=== PATIENT | female | born 1980 | race Caucasian/White ===

== ENCOUNTER → 2024-04-10 | Outpatient (CLI) | payer OTHER, SELFPAY ==
[2024-04-10 12:52] LABS: Anion Gap 7 (5-15); BUN 16 mg/dL (7-18); BUN/Creat Ratio 16.6 RATIO (10-20); Chloride 107 mmol/L (98-107); Cholesterol 169 mg/dL (200); Creatinine, Serum 0.96 mg/dL (0.55-1.02); EST Glomerular Filtration Rate 66 mL/min (>60); Est Glom Filt Rate - Afr Amer 80 mL/min (>60); Glucose 82 mg/dL (74-106); High Density Lipoprotein 73 mg/dL; Sodium Level 139 mmol/L (136-145); Triglycerides 65 mg/dL; Very Low Density Lipoprotein 13 mg/dL (5-40)
[2024-04-10 13:07] LABS: Hepatitis C Antibody Non-Reactive (Nonreactive)
== END | disposition home or self-care (01) ==
LOC: MTLAB 09:42
PROVIDERS: PCP Family Medicine; Referring Provider Nurse Practitioner Family; Visit Provider Nurse Practitioner Family
DX: Z13.220 Encounter for screening for lipoid disorders (principal); Z13.1 Encounter for screening for diabetes mellitus; Z11.59 Encounter for screening for other viral diseases
CPT/HCPCS: 36415; 80048; 80061; 86803

== ENCOUNTER 2025-09-24 21:04 | Emergency (ER) | payer OTHER, SELFPAY ==
[2025-09-24] VITALS (9 sets, daily range): BP systolic 130–164; BP diastolic 84–98; PULSE 67–91; RESP 11–16; TEMP 36.6; O2SAT 95–100; BMI 26.4
--- OUTSIDE RECORDS SUMMARY | 2025-09-24 22:07 | XMS RPT_ITS | CCD ---
Author Organization [facility] Care Team Providers Care Monotype Machinist Name Role Phone Bola Ng MD Primary Care Provider Daisy TRAINING SPECIALIST, Vy Referring Unavailable Daisy TRAINING SPECIALIST, Vy Attending Unavailable Bola Ng Primary Care Unavailable Bola Ng MD Primary Care Provider Trill TYING MACHINE OPERATOR.CLIVE Lina C Primary Care Provider OPAL SMITH Attending Unavailable TRILL, LINA C Primary Care Unavailable WALLACE NGIC A Primary Care Unavailable TRILL, LINA C Attending Unavailable TRILL, LINA C Attending Unavailable TRILL, LINA C Primary Care Unavailable TRILL, LINA C Referring Unavailable TRILL, LINA C Primary Care Unavailable TAI MOORE Referring Unavailable TRILL, LINA C Primary Care Unavailable TRILL, LINA C Referring Unavailable TRILL, LINA C Primary Care Unavailable HERNANDEZ BOLA A Primary Care Unavailable WALLACE NGIC A Primary Care Unavailable WALLACE NGIC A Primary Care Unavailable GIO PERALTA Attending Unavailable TRILL, LINA C Referring Unavailable TRILL, LINA C Primary Care Unavailable FABIANGIO Attending Unavailable TRILL, LINA C Referring Unavailable TRILL, LINA C Primary Care Unavailable FABIANGIO Attending Unavailable TRILL, LINA C Referring Unavailable TRILL, LINA C Primary Care Unavailable DAVIDA SÁNCHEZ Attending Unavailable TRILL, LINA C Referring Unavailable TRILL, LINA C Primary Care Unavailable FABIANEDITHY Attending Unavailable TRILL, LINA C Referring Unavailable TRILL, LINA C Primary Care Unavailable FABIANEDITHY Attending Unavailable TRILL, LINA C Referring Unavailable TRILL, LINA C Primary Care Unavailable TAI MOORE Attending Unavailable TRILL, LINA C Referring Unavailable TRILL, LINA C Primary Care Unavailable ALLYSON VALLE Attending Unavailable ALLYSON VALLE Referring Unavailable WALLACE NGIC A Primary Care Unavailable MARCH, MEGHAN G Attending Unavailable LINA RAINEY Referring Unavailable LINA RAINEY Primary Care Unavailable SISI BARRIOS Referring Unavailable WALLACE NGIC A Primary Care Unavailable LINA RAINEY Referring Unavailable LINA RAINEY Primary Care Unavailable Medications Current Medications Medication Drug Class(es) Dates Sig (Normalized) Sig (Original) ascorbic acid 125 mg chewable tablet (20 sources) Vitamin C ascorbic acid, vitamin C, (VITAMIN C) 125 mg chew Active doxycycline hyclate 100 mg oral tablet (1 source) Tetracycline-cla ss Drug Start: 09-08-2024 End: 09-15-2024 take 1 tablet by mouth twice daily doxycycline (VIBRA-TABS) 100 mg tablet Indications: Rhinosinusitis Take 1 tablet by mouth two times a day for 7 days. 14 tablet 09/08/2024 09/15/2024 Active ferrous sulfate (20 sources) FERROUS SULFATE (IRON ORAL) Take by mouth. Active FERROUS SULFATE (IRON ORAL) Take by mouth. 0 Active Comment on above: Take by mouth. iv contrast (will be provided with radiology test) (12 sources) Start: 11-03-2024 iv contrast (will be provide d with radiology test) MRI PANC/BLAYNE Inject, intravenously, once for 1 dose. No IV access, insert saline lock prior to the beginning of sedation, infusion, injection of imaging exam. Discontinue saline lock post exam. If Pt. has a central line or IVAD, may access for administration according to line specific nursing protocol. Once exam is complete flush line and de-access according to line specific nursing protocol in the MR contrast administration guidelines link. 1 Each 11/03/2024 Active Start: 09-22-2024 End: 09-23-2024 iv contrast (will be provide d with radiology test) MRI PANC/BLAYNE Inject, intravenously, once for 1 dose. No IV access, insert saline lock prior to the beginning of sedation, infusion, injection of imaging exam. Discontinue saline lock post exam. If Pt. has a central line or IVAD, may access for administration according to line specific nursing protocol. Once exam is complete flush line and de-access according to line specific nursing protocol in the MR contrast administration guidelines link. 1 Each 09/22/2024 09/23/2024 Active Start: 01-16-2022 End: 01-17-2022 iv contrast (will be provide d with radiology test) Indications: Pancreatic cyst MRI PANC/BLAYNE Inject, intravenously, once for 1 dose. No IV access, insert saline lock prior to the beginning of sedation, infusion, injection of imaging exam. Discontinue saline lock post exam. If Pt. has a central line or IVAD, may access for administration according to line specific nursing protocol. Once exam is complete flush line and de-access according to line specific nursing protocol in the MR contrast administration guidelines link. 1 Each 0 01/16/2022 01/17/2022 Active Comment on above: MRI PANC/BLAYNE Inject, intravenously, once for 1 dose. No IV access, insert saline lock prior to the beginning of sedation, infusion, injection of imaging exam. Discontinue saline lock post exam. If Pt. has a central line or IVAD, may access for administration according to line specific nursing protocol. Once exam is complete flush line and de-access according to line specific nursing protocol in the MR contrast administration guidelines link. Lactobacillus acidophilus (20 sources) Lactobacillus ac idophilus (PROBIOTIC ACIDOPHILUS ORAL) Take by mouth. Active Lactobacillus ac idophilus (PROBIOTIC ACIDOPHILUS ORAL) Take by mouth. 0 Active Comment on above: Take by mouth. Magnesium (20 sources) Magnesium 200 mg tab Active Magnesium 200 mg tab Multivitamin capsule (20 sources) take 1 capsule by mo uth once daily Multivitamin capsule Take 1 capsule by mouth once daily. Active take 1 capsule by mouth once rolly ly Multivitamin capsule Take 1 capsule by mouth once daily. 0 Active Comment on above: Take 1 capsule by mo uth once daily. naproxen 500 mg oral tablet (2 sources) Nonsteroidal Anti-inflammatory Drug Start: 5 End: 5 take 1 tablet by mouth twice daily as needed for pain naproxen (NAPROSYN) 500 mg tablet Indications: Right elbow pain Take 1 tablet by mouth two times a day as needed (FOR PAIN - TAKE WITH FOOD.) for up to 14 days. 28 tablet 12/07/2024 12/21/2024 Active psyllium seed, with dextrose, (FIBER SUPPLEMENT ORAL) (20 sources) psyllium seed, w ith dextrose, (FIBER SUPPLEMENT ORAL) Take by mouth. Active psyllium seed, w ith dextrose, (FIBER SUPPLEMENT ORAL) Take by mouth. 0 Active Comment on above: Take by mouth. Completed/Discontinued Medications Medication Drug Class(es) Dates Sig (Normalized) Sig (Original) dicyclomine hydrochloride 10 mg oral capsule (4 sources) Anticholinergic Start: 12-06-2021 End: 06-15-2022 take 1 capsule by mouth three times daily as needed for pain dicyclomine (BENTYL) 10 mg capsule Indications: Periumbilical abdominal pain Take 1 capsule by mouth three times daily as needed (for abdominal pain). 30 capsule 2 12/06/2021 06/15/2022 Discontinued Comment on above: Take 1 capsule by mo [facility] three times daily as needed (for abdominal pain). ELDERBERRY FRUIT (9 sources) End: 06-14-2023 ELDERBERRY FRUIT ORAL ELDERBERRY FRUIT ORAL Lactobac no.41/Bifidobact no .7 (PROBIOTIC-10 ORAL) (4 sources) End: 06-15-2022 Lactobac no.41/Bifidobact no .7 (PROBIOTIC-10 ORAL) Lactobac no.41/B ifidobact no.7 (PROBIOTIC-10 ORAL) Problems Active Problems Problem Classification Problem Date Documented Da te Episodic/Chronic Deficiency and other anemia (1 source) Anemia; Translations: [Anemia, unspecified] 10-13-2024 Episodic Neoplasms of unspecified nature or uncertain behavior (1 source) Benign neoplasm of pancreas; Translations: [Neoplasm of unspecified behavior of digestive system] 10-13-2024 Episodic Other and unspecified benign neoplasm (2 sources) Neuroma of foot; Translations: [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, including hip] 09-22-2024 Episodic Other and unspecified benign neoplasm (1 source) Skin lesion; Translations: [Hemangioma of skin and subcutaneous tissue] 03-15-2025 Episodic Other and unspecified benign neoplasm (1 source) Multiple benign melanocytic nevi ; Translations: [Melanocytic nevi, unspecified] 03-15-2025 Episodic Other and unspecified benign neoplasm (1 source) Hemangioma of skin and subcutaneous tissue; Translations: [Angioma of skin] Onset: 03-15-2025 Episodic Other and unspecified benign neoplasm (1 source) Melanocytic nevi, unspecified; Translations: [Multiple benign nevi] Onset: 03-15-2025 Episodic Other connective tissue disease (1 source) Pain in right foot; Translations: [Pain in right foot] 09-22-2024 Episodic Other connective tissue disease (1 source) Pain in right foot; Translations: [Foot pain, right] Onset: 09-22-2024 Episodic Other liver diseases (2 sources) Lesion of liver; Translations: [Liver disease, unspecified] Chronic Other lower respiratory disease (1 source) Cough; Translations: [Acute cough] Episodic Other lower respiratory disease (3 sources) Cough; Translations: [Acute cough] 08-16-2022 Episodic Other non-traumatic joint disorders (15 sources) Pain in elbow; Translations: [Pain in right elbow] Onset: 12-18-2024 12-07-2024 Episodic Other non-traumatic joint disorders (2 sources) Pain in right elbow; Translations: [Right elbow pain] Onset: 12-07-2024 Episodic Other skin disorders (1 source) Lentiginosis; Translations: [Other melanin hyperpigmentation] 03-15-2025 Episodic Other skin disorders (1 source) Seborrheic keratosis; Translations: [Other seborrheic keratosis] 03-15-2025 Episodic Other skin disorders (1 source) Other melanin hyperpigmentation; Translations: [Lentigines] Onset: 03-15-2025 Episodic Other skin disorders (1 source) Other seborrheic keratosis; Translations: [Seborrheic keratoses] Onset: 03-15-2025 Episodic Other upper respiratory infections (1 source) Chronic sinusitis, unspecified; Translations: [Unspecified sinusitis (chronic)] 09-08-2024 Chronic Other upper respiratory infections (2 sources) Acute upper respiratory infection; Translations: [Acute upper respiratory infection, unspecified] Episodic Residual codes; unclassified (1 source) Family history of malignant neoplasm of skin; Translations: [Family history of malignant neoplasm of other organs or systems] 09-22-2024 Episodic Residual codes; unclassified (1 source) Pain; Translations: [Pain, unspecified] 11-02-2024 Episodic Residual codes; unclassified (1 source) Family history of malignant neoplasm of other organs or systems; Translations: [Family history of skin cancer] Onset: 09-22-2024 Episodic Unclassified (1 source) Acute cough; Translations: [Acute cough] Onset: 09-08-2024 Past or Other Problems Problem Classification Problem Date Documented Date Episodic/Chronic Deficiency and other anemia (1 source) Anemia, unspecified; Translations: [Anemia, unspecified type] Onset: 10-20-2024 Episodic Female infertility (20 sources) Female infertility; Translations: [Female infertility, unspecified] Resolved: 05-06-2020 2021 Chronic Hypertension complicating ; childbirth and the puerperium (20 sources) Transient hypertension of ; Translations: [Gestational [-induced] hypertension without significant proteinuria, unspecified trimester] Onset: 01-31-2009 Resolved: 08-14-2010 08-14-2010 Episodic Immunizations and screening for infectious disease (20 sources) Immunization due; Translations: [Encounter for immunization] Onset: 07-29-2012 Resolved: 02-17-2013 2021 Episodic Other and unspecified benign neoplasm (18 sources) History of polyp of colon; Translations: [History of colonic polyps] Onset: 09-23-2024 09-23-2024 Episodic Other and unspecified benign neoplasm (2 sources) 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, including hip; Translations: [Neuroma of foot] Onset: 09-22-2024 Episodic Other complications of (20 sources) ; Translations: [Supervision of with history of infertility, unspecified trimester] Onset: 07-29-2012 Resolved: 08-29-2015 2021 Episodic Other complications of (20 sources) History of gestational hypertension; Translations: [Supervision of other high risk pregnancies, unspecified trimester] Onset: 07-29-2012 Resolved: 05-06-2020 2021 Episodic Other liver diseases (20 sources) Liver mass; Translations: [Hepatomegaly, not elsewhere classified] Onset: 01-18-2022 01-18-2022 Episodic Other liver diseases (2 sources) Hepatomegaly, not elsewhere classified; Translations: [Liver mass, right lobe] Onset: 01-18-2022 Episodic Other and delivery including normal (20 sources) Normal in primigravida; Translations: [Encounter for supervision of normal first , unspecified trimester] Onset: 06-30-2008 Resolved: 08-29-2015 08-14-2010 Episodic Other screening for suspected conditions (not mental disorders or infectious disease) (15 sources) Patient encounter status; Translations: [Encounter for screening mammogram for malignant neoplasm of breast] Onset: 04-21-2024 Episodic Pancreatic disorders (not diabetes) (20 sources) Cyst of pancreas; Translations: [Cyst of pancreas] Onset: 09-22-2024 Episodic Residual codes; unclassified (20 sources) History of antepartum hemorrhage; Translations: [Personal history of other complications of , childbirth and the puerperium] Onset: 07-29-2012 Resolved: 05-06-2020 2021 Episodic Residual codes; unclassified (20 sources) FH: Congenital anomaly; Translations: [Family history of other congenital malformations, deformations and chromosomal abnormalities] Onset: 07-29-2012 Resolved: 05-06-2020 2021 Episodic Residual codes; unclassified (1 source) Pain, unspecified; Translations: [Pain] Onset: 11-02-2024 Episodic Results Test Name Value Interpretation Reference Range Facil ity OPALOVon 03-15-2025 CNOV Office Visit (DERMIN ) ESTEFANI MISHRA ([id number]) 1980 F Date Time Provider Department 03/15/25 2:45 PM MEGHAN PEDROZA During your visit today, we recorded the following information about you: Meghan Pedroza APRN.CNP 03/15/2025 2:59 PM Signed NEW PATIENT Last visit: New Chief Complaint: Full body skin exam History of Present Ilness: Estefani Mishra is a 44 year old female presents today for a FBSE No other concerns today /planning or : no Pertinent Past Medical History: -Personal history of skin cancer: No -Personal history of skin disease: No -History of organ transplant/immunosuppr essed: No -History of atypical moles: No -Pacemaker or defibrillator: No Specialty Problems None Pertinent Family medical history: History of melanoma: No, but father hx of BCC Review of Systems: Constitutional: Denies fever, chills, night sweats, unintentional weight loss. Skin per HPI. No other new/concerning skin growth. Physical Exam: General: well appearing, of stated age, in no acute distress Neurology: alert and oriented times three Psychiatry: normal affect and speech Varghese skin type: II A skin exam was done of the scalp, face including eyelids and lips, ears, neck, chest, back, abdomen, bilateral upper extremities including digits, bilateral lower extremities and digits, buttocks, nails, except genitals Skin exam normal with the exception of: Few scattered brown stuck on papules and plaques on the head, trunk and extremities Regular and symmetric brown macules and papules on the head, trunk and extremities Scattered reticulated light sotomayor macules in sun distribution Scattered small meraz red papules throughout Assessment and Plan: 1. Meraz angiomas Reassurance on benign nature of lesions and recommend routine self-examinations. Recommend observation and encouraged to notify office of changes. 2. Solar lentigines, Multiple benign nevi, Seborrheic Keratoses, Reassurance on benign nature of lesions and recommend routine self-examinations. Recommend observation and encouraged to notify office of changes. Sunscreen (SPF 30 or higher). Sun protective clothing can be used in lieu of sunscreen but must be worn the entire time you are exposed to the sun's rays The ABCDEs of melanoma were reviewed with the patient and the importance of routine self-examination of moles was emphasized. Should any areas change in size, shape or color, bleed or become tender, the patient will contact the office for evaluation sooner than their interval appointment. Patient verbalizes understanding and agrees with treatment plan. Follow up: 1-2 years or sooner if something concerning arises. The documentation for this note was completed by Cielo Urena MA acting as scribe for Meghan Pedroza APRN.CNP. March 15, 2025 7:18 AM. Cielo Urena MA I agree with the Chief Complaint, ROS, and Past Histories independently gathered by the clinical bioinformatics support specialist and the remaining scribed note accurately describes my personal service to the patient. NOBLE Mccabe Alaina, MA 03/15/2025 2:52 PM Signed GENERAL SUN SAFETY Thank you for allowing me to examine you for signs of skin cancer today. We had an opportunity to discuss my findings and any treatments I recommended. I believe that there are several steps that a person can take to help prevent skin cancers and to detect them at an early, treatable stage: I highly recommend that you perform your own complete skin check once a month looking for changing or unusual spots Use a wall-mounted mirror and a hand mirror to assist in seeing body areas that are difficult to see otherwise If you have a family member that can assist, this is often helpful Please pay attention to the ABCDs of melanoma. Concerning features include moles that are Asymmetric, Borders that are irregular, more than one Color, Diameter greater than a pencil eraser and Evolution or change in your moles Please show any changing moles to your provider Additional information can be obtained at: [email or web address] [email or web address] [email or web address]-detection In many cases, skin cancer can be prevented. The best way to protect yourself is to avoid too much sun and sunburns. Health care providers believe that ultraviolet rays (UV rays) from the sun damage the skin and over time lead to skin cancer. Here are ways to protect yourself: Don't spend long periods of time in direct sunlight Wear hats with brims to protect your face and ears Wear long-sleeved shirts and pants to protect your arms and legs Use broad spectrum sunscreens with a SPF (skin protection factor) of 30 or higher that protect against burning and tanning rays. Apply the lotion 30 minutes before you go outside. Broad-spectrum sunscreens protect against UV-B and UV-A (more content not included)... Normal [facility] CNTHERAPYon 02-04-2025 CNTHERAPY OT/PT/Speech Visit (PTWS) ESTEFANI MISHRA ([id number]) 1980 F Date Time Provider Department 02/04/25 10:45 AM GIO PERALTA Date Time Provider Department Center 02/04/2025 10:45 AM [id number] PRIDE Reason for Visit: PT Discharge [752] Primary Visit Diagnosis:Right elbow pain [M25.521] Allergies As of Date: 02/04/2025 (No Known Allergies) Date Reviewed: 12/07/2024 Reviewed by: Lina Rainey APRN.RESIDENTIAL APPRAISER - Fully Assessed Prescriptions as of 02/04/2025 - iv contrast (will be provided with radiology test) MRI PANC/BLAYNE Inject, intravenously, once for 1 dose. No IV access, insert saline lock prior to the beginning of sedation, infusion, injection of imaging exam. Discontinue saline lock post exam. If Pt. has a central line or IVAD, may access for administration according to line specific nursing protocol. Once exam is complete flush line and de-access according to line specific nursing protocol in the MR contrast administration guidelines link. - Magnesium 200 mg tab - Lactobacillus acidophilus (PROBIOTIC ACIDOPHILUS ORAL) Take by mouth. - ascorbic acid, vitamin C, (VITAMIN C) 125 mg chew - psyllium seed, with dextrose, (FIBER SUPPLEMENT ORAL) Take by mouth. - Multivitamin capsule Take 1 capsule by mouth once daily. - FERROUS SULFATE (IRON ORAL) Take by mouth. Normal [facility] CNTHERAPYon 01-18-2025 CNTHERAPY OT/PT/Speech Visit (PTWS) ESTEFANI MISHRA ([id number]) 1980 F Date Time Provider Department 01/18/25 7:45 AM GIO PERALTA Date Time Provider Department Center 01/18/2025 7:45 AM [id number] PRIDE Reason for Visit: Physical Therapy [503] Primary Visit Diagnosis:Right elbow pain [M25.521] Allergies As of Date: 01/18/2025 (No Known Allergies) Date Reviewed: 12/07/2024 Reviewed by: Lina Rainey APRN.RESIDENTIAL APPRAISER - Fully Assessed Prescriptions as of 01/18/2025 - iv contrast (will be provided with radiology test) MRI PANC/BLAYNE Inject, intravenously, once for 1 dose. No IV access, insert saline lock prior to the beginning of sedation, infusion, injection of imaging exam. Discontinue saline lock post exam. If Pt. has a central line or IVAD, may access for administration according to line specific nursing protocol. Once exam is complete flush line and de-access according to line specific nursing protocol in the MR contrast administration guidelines link. - Magnesium 200 mg tab - Lactobacillus acidophilus (PROBIOTIC ACIDOPHILUS ORAL) Take by mouth. - ascorbic acid, vitamin C, (VITAMIN C) 125 mg chew - psyllium seed, with dextrose, (FIBER SUPPLEMENT ORAL) Take by mouth. - Multivitamin capsule Take 1 capsule by mouth once daily. - FERROUS SULFATE (IRON ORAL) Take by mouth. Normal [facility] CNTHERAPYon 01-11-2025 CNTHERAPY OT/PT/Speech Visit (PTWS) ESTEFANI MISHRA ([id number]) 1980 F Date Time Provider Department 01/11/25 1:15 PM DAVIDA SÁNCHEZ PTSHWETHA Date Time Provider Department Center 01/11/2025 1:15 PM [id number] SÁNCHEZ PTWS Seth Browning Reason for Visit: Physical Therapy [503] Primary Visit Diagnosis:Right elbow pain [M25.521] Allergies As of Date: 01/11/2025 (No Known Allergies) Date Reviewed: 12/07/2024 Reviewed by: Lina Rainey APRN.RESIDENTIAL APPRAISER - Fully Assessed Prescriptions as of 01/11/2025 - iv contrast (will be provided with radiology test) MRI PANC/BLAYNE Inject, intravenously, once for 1 dose. No IV access, insert saline lock prior to the beginning of sedation, infusion, injection of imaging exam. Discontinue saline lock post exam. If Pt. has a central line or IVAD, may access for administration according to line specific nursing protocol. Once exam is complete flush line and de-access according to line specific nursing protocol in the MR contrast administration guidelines link. - Magnesium 200 mg tab - Lactobacillus acidophilus (PROBIOTIC ACIDOPHILUS ORAL) Take by mouth. - ascorbic acid, vitamin C, (VITAMIN C) 125 mg chew - psyllium seed, with dextrose, (FIBER SUPPLEMENT ORAL) Take by mouth. - Multivitamin capsule Take 1 capsule by mouth once daily. - FERROUS SULFATE (IRON ORAL) Take by mouth. Normal [facility] CNTHERAPYon 01-04-2025 CNTHERAPY OT/PT/Speech Visit (PTWS) ESTEFANI MISHRA ([id number]) 1980 F Date Time Provider Department 01/04/25 7:45 AM GIO PERALTA PTWS Date Time Provider Department Center 01/04/2025 7:45 AM [id number], COREY PTWS Seth Browning Reason for Visit: Physical Therapy [503] Primary Visit Diagnosis:Right elbow pain [M25.521] Allergies As of Date: 01/04/2025 (No Known Allergies) Date Reviewed: 12/07/2024 Reviewed by: Lina Rainey APRN.RESIDENTIAL APPRAISER - Fully Assessed Prescriptions as of 01/04/2025 - iv contrast (will be provided with radiology test) MRI PANC/BLAYNE Inject, intravenously, once for 1 dose. No IV access, insert saline lock prior to the beginning of sedation, infusion, injection of imaging exam. Discontinue saline lock post exam. If Pt. has a central line or IVAD, may access for administration according to line specific nursing protocol. Once exam is complete flush line and de-access according to line specific nursing protocol in the MR contrast administration guidelines link. - Magnesium 200 mg tab - Lactobacillus acidophilus (PROBIOTIC ACIDOPHILUS ORAL) Take by mouth. - ascorbic acid, vitamin C, (VITAMIN C) 125 mg chew - psyllium seed, with dextrose, (FIBER SUPPLEMENT ORAL) Take by mouth. - Multivitamin capsule Take 1 capsule by mouth once daily. - FERROUS SULFATE (IRON ORAL) Take by mouth. Normal [facility] CNTHERAPYon 12-29-2024 CNTHERAPY OT/PT/Speech Visit (PTWS) ESTEFANI MISHRA ([id number]) 1980 F Date Time Provider Department 12/29/24 8:30 AM GIO PERALTA PTWS Date Time Provider Department [place] 12/29/2024 8:30 AM [id number], COREY PTWS Seth Browning Reason for Visit: Physical Therapy [503] Primary Visit Diagnosis:Right elbow pain [M25.521] Allergies As of Date: 12/29/2024 (No Known Allergies) Date Reviewed: 12/07/2024 Reviewed by: Lina Rainey APRN.RESIDENTIAL APPRAISER - Fully Assessed Prescriptions as of 12/29/2024 - iv contrast (will be provided with radiology test) MRI PANC/BLAYNE Inject, intravenously, once for 1 dose. No IV access, insert saline lock prior to the beginning of sedation, infusion, injection of imaging exam. Discontinue saline lock post exam. If Pt. has a central line or IVAD, may access for administration according to line specific nursing protocol. Once exam is complete flush line and de-access according to line specific nursing protocol in the MR contrast administration guidelines link. - Magnesium 200 mg tab - Lactobacillus acidophilus (PROBIOTIC ACIDOPHILUS ORAL) Take by mouth. - ascorbic acid, vitamin C, (VITAMIN C) 125 mg chew - psyllium seed, with dextrose, (FIBER SUPPLEMENT ORAL) Take by mouth. - Multivitamin capsule Take 1 capsule by mouth once daily. - FERROUS SULFATE (IRON ORAL) Take by mouth. Normal [facility] CNTHERAPYon 12-18-2024 CNTHERAPY OT/PT/Speech Visit (PTWS) ESTEFANI MISHRA ([id number]) 1980 F Date Time Provider Department 12/18/24 8:00 AM GIO PERALTA PTWS Date Time Provider Department Center 12/18/2024 8:00 AM [id number], [facility] PTWS Seth Browning Reason for Visit: PT Eval [747] Visit Diagnosis:Right elbow pain [M25.521] Allergies As of Date: 12/18/2024 (No Known Allergies) Date Reviewed: 12/07/2024 Reviewed by: Lina Rainey APRN.RESIDENTIAL APPRAISER - Fully Assessed Prescriptions as of 12/18/2024 - naproxen (NAPROSYN) 500 mg tablet Take 1 tablet by mouth two times a day as needed (FOR PAIN - TAKE WITH FOOD.) for up to 14 days. - iv contrast (will be provided with radiology test) MRI PANC/BLAYNE Inject, intravenously, once for 1 dose. No IV access, insert saline lock prior to the beginning of sedation, infusion, injection of imaging exam. Discontinue saline lock post exam. If Pt. has a central line or IVAD, may access for administration according to line specific nursing protocol. Once exam is complete flush line and de-access according to line specific nursing protocol in the MR contrast administration guidelines link. - Magnesium 200 mg tab - Lactobacillus acidophilus (PROBIOTIC ACIDOPHILUS ORAL) Take by mouth. - ascorbic acid, vitamin C, (VITAMIN C) 125 mg chew - psyllium seed, with dextrose, (FIBER SUPPLEMENT ORAL) Take by mouth. - Multivitamin capsule Take 1 capsule by mouth once daily. - FERROUS SULFATE (IRON ORAL) Take by mouth. Normal [facility] CNOVon 12-07-2024 CNOV Office Visit (AGFAMPLE) ESTEFANI MISHRA ([id number]) 1980 F Date Time Provider Department 12/07/24 1:00 PM LINA RAINEY During your visit today, we recorded the following information about you: Temperature Pulse Blood pressure Weight 98.1 degrees 60/minute 110/70 77.1 kg Height 1.727 m Lina Rainey, TYING MACHINE OPERATOR.RESIDENTIAL APPRAISER 12/07/2024 1:27 PM Signed Subjective Estefani Mishra is a 44 year old female here today for elbow pain. I reviewed past medical, surgical, social, and family histories today and updated chart. Allergies, chronic medications, and supplements were also reviewed. 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 Numbness or tingling in arm (if so, state location): none Weakness in arm: yes, not able to lift as much but could be avoiding due to pain Better with: nothing really Worse with: grabbing items, worse at night, straightening the elbow Has tried: Ice: Yes Ibuprofen, Advil, Motrin, Aleve: No Tylenol, acetaminophen: No Tennis elbow band: Yes, helps a little Topical medication like ICY Hot , Bengay: No Other: sleeve elbow brace Previous problems: None Previous treatment (medication, injections): none Previous xrays / imaging: none PAST MEDICAL HISTORY Diagnosis Date Adenomatous colon polyp Anemia DURING COLLEGE Female infertility of unspecified origin Female infertility Female stress incontinence Liver function study, abnormal BENIGN CALCIFICATION OF LIVER Mass of pancreas 2021 PAST SURGICAL HISTORY Procedure Laterality Date COLONOSCOPY 07/27/2021 Dr. Morgan, Polyp, repeat 5 years EGD 07/27/2021 Dr Morgan, Normal LIVER BIOPSY 02/12/2022 no evidence of atypia or malignancy ALLERGIES Patient has no known allergies. MEDICATIONS iv contrast (will be provided with radiology test) MRI PANC/BLAYNE Inject, intravenously, once for 1 dose. No IV access, insert saline lock prior to the beginning of sedation, infusion, injection of imaging exam. Discontinue saline lock post exam. If Pt. has a central line or IVAD, may access for administration according to line specific nursing protocol. Once exam is complete flush line and de-access according to line specific nursing protocol in the MR contrast administration guidelines link. Magnesium 200 mg tab Lactobacillus acidophilus (PROBIOTIC ACIDOPHILUS ORAL) Take by mouth. ascorbic acid, vitamin C, (VITAMIN C) 125 mg chew psyllium seed, with dextrose, (FIBER SUPPLEMENT ORAL) Take by mouth. Multivitamin capsule Take 1 capsule by mouth once daily. FERROUS SULFATE (IRON ORAL) Take by mouth. FAMILY HISTORY Problem Relation Age of Onset Breast Cancer Mother Hypertension Mother other (Gallbladder Disease) Mother Gallbladder Removed Heart Father valve replacement Skin Cancer Father Hyperlipidemia Father No Known Problems Sister Breast Cancer Maternal Grandmother Aneurysm Maternal Grandfather stomach Heart Paternal Grandmother Cancer Paternal Grandfather No Known Problems Daughter No Known Problems Son Pancreatic Cancer Maternal Uncle Colon Cancer No Family History Social History Tobacco Use Smoking status: Never Passive exposure: Never Smokeless tobacco: Never Vaping Use Vaping status: Never Used Substance Use Topics Alcohol use: Yes Comment: Seldom,NOT WHILE Drug use: No Review of Systems Constitutional: Negative for appetite change, chills, fatigue, fever and unexpected weight change. HENT: Negative for congestion, ear pain, rhinorrhea and sore throat. Eyes: Negative for pain, discharge, itching and visual disturbance. Respiratory: Negative for cough, shortness of breath and wheezing. Cardiovascular: Negative for chest pain, palpitations and leg swelling. Gastrointestinal: Negative for abdominal pain, constipation, diarrhea, nausea and vomiting. Genitourinary: Negative for difficulty urinating. Musculoskeletal: Positive for arthralgias. Skin: Negative for rash. Neurological: Negative for dizziness, tremors, weakness and headaches. Psychiatric/Behavioral : Negative for dysphoric mood and sleep disturbance. The patient is not nervous/anxious. Objective BP 110/70 Pulse 60 Temp 98.1 Ht 5' 8 (1.73m) Wt 170 lb (77.1kg) SpO2 98% LMP 08/09/2024 BMI 25.85 kg/(m2). Physical Exam Constitutional: Appearance: Normal appearance. Musculoskeletal: Right elbow: No swelling, deformity or effusion. Normal range of motion. No tenderness. Arms: Comments: Pain located just lateral to olecranon process Neurological: Mental Status: She is alert and oriented to person, place, and time. Sensory: Sen (more content not included)... Normal [facility] CNOVon 11-03-2024 CNOV Office Visit (AGGENS 3) ESTEFANI MISHRA ([id number]) 1980 F Date Time Provider Department 11/03/24 8:30 AM OPAL SMITH AGGENS3 During your visit today, we recorded the following information about you: Blood pressure Weight Height 118/76 76.2 kg 1.676 m Opal Smith MD 11/03/2024 9:23 AM Signed Opal Smith MD Surgical Oncology [address] [facility], [address] [place] [id number] Name: Estefani Mishra Age: [age] year old Sex: Estefani Mishra : 1980 Referring Provider: No ref. provider found Subjective CHIEF COMPLAINT: Pancreatic cyst HISTORY OF PRESENT ILLNESS: Ms. Mishra is a 44 year old female who presents for management of pancreatic cystic lesions. In 2021 she was following with GI and was found on imaging to have a liver mass and pancreatic cyst. The liver mass was biopsied and found to be benign. She was recommended to have surveillance imaging with MRCP but was delayed in getting it. She recently had a repeat MRI which again demonstrated these lesions. Reports no symptoms. Denies abdominal pain, nausea, or vomiting. PAST MEDICAL HISTORY Diagnosis Date Adenomatous colon polyp Anemia DURING COLLEGE Female infertility of unspecified origin Female infertility Female stress incontinence Liver function study, abnormal BENIGN CALCIFICATION OF LIVER Mass of pancreas 2021 PAST SURGICAL HISTORY Procedure Laterality Date COLONOSCOPY 07/27/2021 Dr. Morgan, Polyp, repeat 5 years EGD 07/27/2021 Dr Morgan, Normal LIVER BIOPSY 02/12/2022 no evidence of atypia or malignancy Current Outpatient Medications on File Prior to Visit Medication Sig Magnesium 200 mg tab Lactobacillus acidophilus (PROBIOTIC ACIDOPHILUS ORAL) Take by mouth. ascorbic acid, vitamin C, (VITAMIN C) 125 mg chew psyllium seed, with dextrose, (FIBER SUPPLEMENT ORAL) Take by mouth. Multivitamin capsule Take 1 capsule by mouth once daily. FERROUS SULFATE (IRON ORAL) Take by mouth. No current facility-administered medications on file prior to visit. ALLERGIES No Known Allergies FAMILY HISTORY Problem Relation Age of Onset Breast Cancer Mother Hypertension Mother other (Gallbladder Disease) Mother Gallbladder Removed Heart Father valve replacement Skin Cancer Father Hyperlipidemia Father No Known Problems Sister Breast Cancer Maternal Grandmother Aneurysm Maternal Grandfather stomach Heart Paternal Grandmother Cancer Paternal Grandfather No Known Problems Daughter No Known Problems Son Pancreatic Cancer Maternal Uncle Colon Cancer No Family History Social History Tobacco Use Smoking status: Never Passive exposure: Never Smokeless tobacco: Never Vaping Use Vaping status: Never Used Substance Use Topics Alcohol use: Yes Comment: Seldom,NOT WHILE Drug use: No I personally reviewed Tobacco Allergies Meds Problems Med Hx Surg Hx Fam Hx Objective PHYSICAL EXAM: BP 118/76 Ht 5' 6 (1.68m) Wt 168 lb (76.2kg) LMP 08/09/2024 BMI 27.13 kg/(m2). Physical Exam Constitutional: General: She is not in acute distress. Appearance: Normal appearance. HENT: Head: Normocephalic and atraumatic. Eyes: Extraocular Movements: Extraocular movements intact. Conjunctiva/sclera: Conjunctivae normal. Cardiovascular: Rate and Rhythm: Normal rate. Pulses: Normal pulses. Pulmonary: Effort: Pulmonary effort is normal. No respiratory distress. Breath sounds: No stridor. Abdominal: General: There is no distension. Palpations: Abdomen is soft. Tenderness: There is no abdominal tenderness. Musculoskeletal: General: Normal range of motion. Cervical back: Normal range of motion. Skin: General: Skin is warm and dry. Findings: No erythema or rash. Neurological: General: No focal deficit present. Mental Status: She is alert and oriented to person, place, and time. Mental status is at baseline. Psychiatric: Mood and Affect: Mood normal. Behavior: Behavior normal. Thought Content: Thought content normal. Judgment: Judgment normal. DATA: Labs: WBC (k/uL) Date Value 10/20/2024 5.24 RBC (m/uL) Date Value 10/20/2024 4.65 Hemoglobin (g/dL) Date Value 10/20/2024 12.4 Hematocrit (%) Date Value 10/20/2024 39.3 MCV (fL) Date Value 10/20/2024 84.5 MCH (pg) Date Value 10/20/2024 26.7 MCHC (g/dL) Date Value 10/20/2024 31.6 RDW-CV (%) Date Value 10/20/2024 17.3 (H) Platelet Count (k/uL) Date Value 10/20/2024 200 MPV (fL) Date Value 10/20/2024 10.4 Glucose (mg/dL) Date Value 09/24/2024 88 BUN (mg/dL) Date Value 09/24/2024 16 Creatinine (mg/dL) Date Value 09/24/2024 0.97 (H) Sodium (mmol/L) Date Value 09/24/2024 139 Potassium (mmol/L) Date Value 09/24/2024 4.3 Chloride (mmol/L) Date Value 09/24/2024 106 (more content not included)... Normal [facility] HISTORY PHYSICALon HISTORY PHYSICAL HNO ID: [id number] Author: OPAL SMITH MD Service: ? Author Type: Physician Type: H&P Filed: 11/03/2024 09:23 Note Text: Opal Smith MD Surgical Oncology [address] [facility], [address] [place] [id number] Name: Estefani Mishra Age: [age] year old Sex: Estefani Mishra : 1980 Referring Provider: No ref. provider found Subjective CHIEF COMPLAINT: Pancreatic cyst HISTORY OF PRESENT ILLNESS: Ms. Mishra is a 44 year old female who presents for management of pancreatic cystic lesions. In 2021 she was following with GI and was found on imaging to have a liver mass and pancreatic cyst. The liver mass was biopsied and found to be benign. She was recommended to have surveillance imaging with MRCP but was delayed in getting it. She recently had a repeat MRI which again demonstrated these lesions. Reports no symptoms. Denies abdominal pain, nausea, or vomiting. PAST MEDICAL HISTORY Diagnosis Date Adenomatous colon polyp Anemia DURING COLLEGE Female infertility of unspecified origin Female infertility Female stress incontinence Liver function study, abnormal BENIGN CALCIFICATION OF LIVER Mass of pancreas 2021 PAST SURGICAL HISTORY Procedure Laterality Date COLONOSCOPY 07/27/2021 Dr. Morgan, Polyp, repeat 5 years EGD 07/27/2021 Dr Morgan, Normal LIVER BIOPSY 02/12/2022 no evidence of atypia or malignancy Current Outpatient Medications on File Prior to Visit Medication Sig Magnesium 200 mg tab Lactobacillus acidophilus (PROBIOTIC ACIDOPHILUS ORAL) Take by mouth. ascorbic acid, vitamin C, (VITAMIN C) 125 mg chew psyllium seed, with dextrose, (FIBER SUPPLEMENT ORAL) Take by mouth. Multivitamin capsule Take 1 capsule by mouth once daily. FERROUS SULFATE (IRON ORAL) Take by mouth. No current facility-administered medications on file prior to visit. ALLERGIES No Known Allergies FAMILY HISTORY Problem Relation Age of Onset Breast Cancer Mother Hypertension Mother other (Gallbladder Disease) Mother Gallbladder Removed Heart Father valve replacement Skin Cancer Father Hyperlipidemia Father No Known Problems Sister Breast Cancer Maternal Grandmother Aneurysm Maternal Grandfather stomach Heart Paternal Grandmother Cancer Paternal Grandfather No Known Problems Daughter No Known Problems Son Pancreatic Cancer Maternal Uncle Colon Cancer No Family History Social History Tobacco Use Smoking status: Never Passive exposure: Never Smokeless tobacco: Never Vaping Use Vaping status: Never Used Substance Use Topics Alcohol use: Yes Comment: Seldom,NOT WHILE Drug use: No I personally reviewed Tobacco Allergies Meds Problems Med Hx Surg Hx Fam Hx Objective PHYSICAL EXAM: BP 118/76 Ht 5' 6 (1.68m) Wt 168 lb (76.2kg) LMP 08/09/2024 BMI 27.13 kg/(m2). Physical Exam Constitutional: General: She is not in acute distress. Appearance: Normal appearance. HENT: Head: Normocephalic and atraumatic. Eyes: Extraocular Movements: Extraocular movements intact. Conjunctiva/sclera: Conjunctivae normal. Cardiovascular: Rate and Rhythm: Normal rate. Pulses: Normal pulses. Pulmonary: Effort: Pulmonary effort is normal. No respiratory distress. Breath sounds: No stridor. Abdominal: General: There is no distension. Palpations: Abdomen is soft. Tenderness: There is no abdominal tenderness. Musculoskeletal: General: Normal range of motion. Cervical back: Normal range of motion. Skin: General: Skin is warm and dry. Findings: No erythema or rash. Neurological: General: No focal deficit present. Mental Status: She is alert and oriented to person, place, and time. Mental status is at baseline. Psychiatric: Mood and Affect: Mood normal. Behavior: Behavior normal. Thought Content: Thought content normal. Judgment: Judgment normal. DATA: Labs: WBC (k/uL) Date Value 10/20/2024 5.24 RBC (m/uL) Date Value 10/20/2024 4.65 Hemoglobin (g/dL) Date Value 10/20/2024 12.4 Hematocrit (%) Date Value 10/20/2024 39.3 MCV (fL) Date Value 10/20/2024 84.5 MCH (pg) Date Value 10/20/2024 26.7 MCHC (g/dL) Date Value 10/20/2024 31.6 RDW-CV (%) Date Value 10/20/2024 17.3 (H) Platelet Count (k/uL) Date Value 10/20/2024 200 MPV (fL) Date Value 10/20/2024 10.4 Glucose (mg/dL) Date Value 09/24/2024 88 BUN (mg/dL) Date Value 09/24/2024 16 Creatinine (mg/dL) Date Value 09/24/2024 0.97 (H) Sodium (mmol/L) Date Value 09/24/2024 139 Potassium (mmol/L) Date Value 09/24/2024 4.3 Chloride (mmol/L) Date Value 09/24/2024 106 CO2 (mmol/L) Date Value 09/24/2024 23 Protein, Total (g/dL) Date Value 09/24/2024 6.6 Albumin (g/dL) Date Value 09/24/2024 4.4 Calcium, Total (mg/dL) Date Value 09/24/2024 9.1 Alkaline Phosphatase (U/L) Date Value 09/24/2024 49 Bilirub (more content not included)... Normal [facility] CNOVon 11-02-2024 CNOV Office Visit (PODIWS ) ESTEAFNI MISHRA ([id number]) 1980 F Date Time Provider Department 11/02/24 1:45 PM TAI MOORE During your visit today, we recorded the following information about you: Nunu Ng LPN 11/02/2024 6:28 PM Signed AMB ROOMING INTAKE FLOWSHEET DATA Pain Pain Level: 2 Pain Location: Foot-Left Description: Aching, Burning Duration Amount of Time: 2 Duration Units: Months Frequency: Intermittent Intervention/Comfort measure: Relaxation, Reposition, Medication Patient presents with: Left Foot - Mass, New, Pain Nunu MAGALY Ng Matthew 11/02/2024 6:28 PM Signed Consultation requested by Dr. Rainey for an opinion regarding left foot pain. My final recommendations will be communicated back to the requesting physician by way of shared Medical record or letter to requesting physician via US mail. Initial Podiatric Office Visit: Chief Complaint: This 44 year old female who presents with chief complaint:left foot pain/possible neuroma HPI Patient presents to clinic for evaluation of left foot Pateint states the pain in left foot first started last /summer Went to see Dr. Campbell in April and was given metatarsal pads and a steroid injection of left foot, unknown interspace The injection helped to resolve her pain for nearly 5 months The pain is slowly returning. Patient states currently the pain is 3-4/10. Does nothing for the pain currently. Patient states the pain is worse whenever barefoot. PAIN EVALUATION 11/02/2024 1411 Pain Level: 2 Pain Location: Foot-Left Description: Aching;Burning Duration Amount of Time: 2 Duration Units: Months Frequency: Intermittent Intervention/Comfort measure: Relaxation;Reposition; Medication No results found for: HBA1C PCP: Lina Rainey APRN.RESIDENTIAL APPRAISER PAST MEDICAL HISTORY Diagnosis Date Adenomatous colon polyp Anemia DURING COLLEGE Female infertility of unspecified origin Female infertility Female stress incontinence Liver function study, abnormal BENIGN CALCIFICATION OF LIVER Mass of pancreas 2021 Current Outpatient Medications Medication Sig Magnesium 200 mg tab Lactobacillus acidophilus (PROBIOTIC ACIDOPHILUS ORAL) Take by mouth. ascorbic acid, vitamin C, (VITAMIN C) 125 mg chew psyllium seed, with dextrose, (FIBER SUPPLEMENT ORAL) Take by mouth. Multivitamin capsule Take 1 capsule by mouth once daily. FERROUS SULFATE (IRON ORAL) Take by mouth. No current facility-administered medications for this visit. ALLERGIES No Known Allergies PAST SURGICAL HISTORY Procedure Laterality Date COLONOSCOPY 07/27/2021 Dr. Morgan, Polyp, repeat 5 years EGD 07/27/2021 Dr Morgan, Normal LIVER BIOPSY 02/12/2022 no evidence of atypia or malignancy FAMILY HISTORY Problem Relation Age of Onset Breast Cancer Mother Hypertension Mother other (Gallbladder Disease) Mother Gallbladder Removed Heart Father valve replacement Skin Cancer Father Hyperlipidemia Father No Known Problems Sister Breast Cancer Maternal Grandmother Aneurysm Maternal Grandfather stomach Heart Paternal Grandmother Cancer Paternal Grandfather No Known Problems Daughter No Known Problems Son Pancreatic Cancer Maternal Uncle Colon Cancer No Family History Social History Tobacco Use Smoking status: Never Passive exposure: Never Smokeless tobacco: Never Vaping Use Vaping status: Never Used Substance Use Topics Alcohol use: Yes Comment: Seldom,NOT WHILE Drug use: No REVIEW OF SYSTEMS GENERAL: Negative for Malaise, significant weight loss, fever RESPIRATORY: Negative for cough, wheezing and shortness of breath CARDIOVASCULAR: Negative for chest pain, leg swelling and palpitations GI: Negative for abdominal discomfort, blood in stools or black stools and change in bowel habits : Negative for dysuria, frequency and incontinence MUSCULOSKELETAL: Negative for joint pain or swelling, back pain, and muscle pain. SKIN: Negative for lesions, rash, and itching. HEMATOLOGY/LYMPHOLOGY Negative for prolonged bleeding, bruising easily, and swollen nodes. ENDOCRINE: Negative for cold or heat intolerance, polyuria, polydipsia and goiter. NEURO: negative Physical Exam: Constitutional: Pt is a well developed 44 year old female who is alert, oriented and cooperative Eyes: Following during examination. No redness or drainage. Respiratory: RR normal and nonlabored. Even breathing. No evidence of distress or shortness of breath. Psychology: Patient is engaged during conversation. Normal affect and mood. Does not appear depressed or anxious during encounter. Vascular: Dorsalis pedis and posterior tibial pulses palpable as b/l Capillary Fill time < 5 seconds to digits 1-5 b/l Skin temperature warm to warm proximal to distal b/l Hair growth present to digits Neurologi (more content not included)... Normal [facility] XR FOOT 3V AP/LAT/OBL LTon 0 11-02-2024 XR FOOT 3V AP/LAT/OBL LT * * *Final Report* * * DATE OF EXAM: Nov 02 2024 2:12PM [id number] - XR FOOT 3V AP/LAT/OBL LT / PROCEDURE REASON: Pain * * * * Physician Interpretation * * * * EXAMINATION / TECHNIQUE: XR FOOT 3V AP/LAT/OBL LT HISTORY: PT STATES LEFT 2ND TOE PAIN Pain COMPARISON: None. RESULT: No acute fracture or osseous malalignment is identified. The joint spaces are preserved. Insertional Achilles enthesophyte. IMPRESSION: No acute bony abnormality. Grader Patrol: PSCB Transcribe Date/Time: Nov 05 2024 5:42A Dictated by : JOHAN LAI MD This examination was interpreted and the report reviewed and electronically signed by: JOHAN LAI MD on Nov 05 2024 5:43AM EST [id number] Normal [facility] CBC W Auto Differential pane l (Bld)on 10-20-2024 Basophils (Bld) [#/Vol] 0.05 10*3/uL Normal <0.11 [facility] Comment on above: Order Comment: Speci men Type: BLOOD SPECIMENOrdering Facility: [facility] Address: [address] [place] [address] Performed By: #### 5 7021-8 ####[facility] [id number] [place] [address] [place] Basophils/100 WBC (Bld) 1.0 % Normal [facility] Comment on above: Order Comment: Speci men Type: BLOOD SPECIMENOrdering Facility: [facility] Address: [address] [place] [address] Performed By: #### 5 7021-8 ####[facility] [id number] [place] [address] [place] Differential cell count method Nom (Bld) Auto Normal [facility] Comment on above: Order Comment: Speci men Type: BLOOD SPECIMENOrdering Facility: [facility] Address: [address] [place] [address] Performed By: #### 5 7021-8 ####[facility] [id number] [place] [address] [place] Eosinophils (Bld) [#/Vol] 0.07 10*3/uL Normal <0.46 [facility] Comment on above: Order Comment: Speci men Type: BLOOD SPECIMENOrdering Facility: [facility] Address: [address] [place] [address] Performed By: #### 5 7021-8 ####[facility] [id number] [place] [address] [place] Eosinophils/100 WBC (Bld) 1.3 % Normal [facility] Comment on above: Order Comment: Speci men Type: BLOOD SPECIMENOrdering Facility: [facility] Address: [address] [place] [address] Performed By: #### 5 7021-8 ####[facility] [id number] [place] [address] [place] Erythrocyte distribution width (RBC) [Ratio] 17.3 % High 11.5-15.0 [facility] [facility] Comment on above: Order Comment: Speci men Type: BLOOD SPECIMENOrdering Facility: [facility] Address: [address] [place] [address] Performed By: #### 5 7021-8 ####[facility] INSTITUTEWNCLIA [id number] [place] [address] [place] Hematocrit (Bld) [Volume fraction] 39.3 % Normal 36.0-46.0 [facility] Comment on above: Order Comment: Speci men Type: BLOOD SPECIMENOrdering Facility: [facility] Address: [address] [place] [address] Performed By: #### 5 7021-8 ####[facility] SYSTEMLIA [id number] [place] [address] [place] Hemoglobin (Bld) [Mass/Vol] 12.4 g/dL Normal 11.5-15.5 [facility] Comment on above: Order Comment: Speci men Type: BLOOD SPECIMENOrdering Facility: [facility] Address: [address] [place] [address] Performed By: #### 5 7021-8 ####[facility]ITALA [id number] [place] [address] [place] Immature granulocytes (Bld) [#/Vol] 10*3/uL Normal <0.10 [facility] Comment on above: Order Comment: Speci men Type: BLOOD SPECIMENOrdering Facility: [facility] Address: [address] [place] [address] Performed By: #### 5 7021-8 ####[facility] [id number] [place] [address] [place] Immature granulocytes/100 WBC (Bld) 0.2 % Normal [facility] Comment on above: Order Comment: Speci men Type: BLOOD SPECIMENOrdering Facility: [facility] Address: [address] [place] [address] Performed By: #### 5 7021-8 ####[facility] [id number] [place] [address] [place] Lymphocytes (Bld) [#/Vol] 2.18 10*3/uL Normal 1.00-4.00 [facility] Comment on above: Order Comment: Speci men Type: BLOOD SPECIMENOrdering Facility: [facility] Address: [address] [place] [address] Performed By: #### 5 7021-8 ####[facility] CLAY COUNTYNCLIA [id number] [place] [address] [place] Lymphocytes/100 WBC (Bld) 41.6 % Normal [facility] Comment on above: Order Comment: Speci men Type: BLOOD SPECIMENOrdering Facility: [facility] Address: [address] [place] [address] Performed By: #### 5 7021-8 ####[facility]YNCCENTR[facility] [id number] [place] [address] [place] MCH (RBC) [Entitic mass] 26.7 pg Normal 26.0-34.0 [facility] Comment on above: Order Comment: Speci men Type: BLOOD SPECIMENOrdering Facility: [facility] Address: [address] [place] [address] Performed By: #### 5 7021-8 ####[facility]YNCCENTR[facility] [id number] [place] [address] [place] MCHC (RBC) [Mass/Vol] 31.6 g/dL Normal 30.5-36.0 [facility] Comment on above: Order Comment: Speci men Type: BLOOD SPECIMENOrdering Facility: [facility] Address: [address] [place] [address] Performed By: #### 5 7021-8 ####[facility]YNCCENTR[facility] [id number] [place] [address] [place] MCV (RBC) [Entitic vol] 84.5 fL Normal 80.0-100.0 [facility] Comment on above: Order Comment: Speci men Type: BLOOD SPECIMENOrdering Facility: [facility] Address: [address] [place] [address] Performed By: #### 5 7021-8 ####[facility] [id number] [place] [address] [place] Monocytes (Bld) [#/Vol] 0.42 10*3/uL Normal <0.87 [facility] Comment on above: Order Comment: Speci men Type: BLOOD SPECIMENOrdering Facility: [facility] Address: [address] [place] [address] Performed By: #### 5 7021-8 ####[facility] MILLTOWNCLIA [id number] [place] [address] [place] Monocytes/100 WBC (Bld) 8.0 % Normal [facility] Comment on above: Order Comment: Speci men Type: BLOOD SPECIMENOrdering Facility: [facility] Address: [address] [place] [address] Performed By: #### 5 7021-8 ####[facility] MILLWNCLIA [id number] [place] [address] [place] Neutrophils (Bld) [#/Vol] 2.51 10*3/uL Normal 1.45-7.50 [facility] Comment on above: Order Comment: Speci men Type: BLOOD SPECIMENOrdering Facility: [facility] Address: [address] [place] [address] Performed By: #### 5 7021-8 ####[facility] MILLTOWNCLIA [id number] [place] [address] [place] Neutrophils/100 WBC (Bld) 47.9 % Normal [facility] Comment on above: Order Comment: Speci men Type: BLOOD SPECIMENOrdering Facility: [facility] Address: [address] [place] [address] Performed By: #### 5 7021-8 ####[facility] MILLTOWNCLIA [id number] [place] [address] [place] Nucleated RBC (Bld) [#/Vol] 10*3/uL Normal <0.01 [facility] Comment on above: Order Comment: Speci men Type: BLOOD SPECIMENOrdering Facility: [facility] Address: [address] [place] [address] Performed By: #### 5 7021-8 ####[facility] MILLTOWNCLIA [id number] [place] [address] [place] Nucleated RBC/100 WBC (Bld) [Ratio] 0.0 /100 WBC Normal [facility] Comment on above: Order Comment: Speci men Type: BLOOD SPECIMENOrdering Facility: [facility] Address: [address] [place] [address] Performed By: #### 5 7021-8 ####[facility] [id number] [place] [address] [place] Platelet mean volume (Bld) [Entitic vol] 10.4 fL Normal 9.0-12.7 [facility] Comment on above: Order Comment: Speci men Type: BLOOD SPECIMENOrdering Facility: [facility] Address: [address] [place] [address] Performed By: #### 5 7021-8 ####[facility] [id number] [place] [address] [place] Platelets (Bld) [#/Vol] 200 10*3/uL Normal 150-400 [facility] Comment on above: Order Comment: Speci men Type: BLOOD SPECIMENOrdering Facility: [facility] Address: [address] [place] [address] Performed By: #### 5 7021-8 ####[facility] [id number] [place] [address] [place] RBC (Bld) [#/Vol] 4.65 10*6/uL Normal 3.90-5.20 [facility] Comment on above: Order Comment: Speci men Type: BLOOD SPECIMENOrdering Facility: [facility] Address: [address] [place] [address] Performed By: #### 5 7021-8 ####[facility] CLAY COUNTYNCLI [id number] [place] [address] [place] WBC (Bld) [#/Vol] 5.24 10*3/uL Normal 3.70-11.00 [facility] Comment on above: Order Comment: Speci men Type: BLOOD SPECIMENOrdering Facility: [facility] Address: [address] [place] [address] Performed By: #### 5 7021-8 ####[facility] CENTERLIA [id number] [place] [address] [place] Ferritin SerPl-mCncon 2024 Ferritin [Mass/Vol] 35.4 ng/mL Normal 14.7-205.1 [facility] Comment on above: Order Comment: Speci men Type: BLOOD SPECIMENOrdering Facility: [facility] Address: [address] [place] [address] Performed By: #### 2 276-4, 17196-5 ####[facility] LABCLIA [id number] [place] [address] [place] Iron and Iron binding capaci ty panelon 10-20-2024 Iron [Mass/Vol] 66 ug/dL Normal 41-186 [facility] Comment on above: Order Comment: Speci men Type: BLOOD SPECIMENOrdering Facility: [facility] Address: [address] [place] [address] Performed By: #### 2 276-4, 30130-8 ####[facility] LABCLIA [id number] [place] [address] [place] Iron binding capacity [Mass/Vol] 359 ug/dL Normal 232-386 [facility] Comment on above: Order Comment: Speci men Type: BLOOD SPECIMENOrdering Facility: [facility] Address: [address] [place] [address] Performed By: #### 2 276-4, 66945-0 ####[facility] LABCLIA [id number] [place] [address] [place] Iron/TIBC [Molar ratio] 18.4 % Normal 15.0-57.0 [facility] Comment on above: Order Comment: Speci men Type: BLOOD SPECIMENOrdering Facility: [facility] Address: [address] [place] [address] Performed By: #### 2 276-4, 82313-3 ####[facility] LABCLIA [id number] [place]INA FERNÁNDEZ [id number] Nikita 10-16-2024 [place] Telephone ([place]) ESTEFANI MISHRA ([id number]) 1980 F Date Time Provider Department 10/16/24 LINA RAINEY During your visit today, we recorded the following information about you: Sarah Zuniga MA 10/16/2024 8:45 AM Signed ----- Message from Pepe Peña MA sent at 09/25/2024 7:16 AM EST ----- Labs are normal besides mild low blood counts Recheck in 2-4 weeks Allergies As of Date: 10/16/2024 (No Known Allergies) Date Reviewed: 09/22/2024 Reviewed by: Lina Rainey, TYING MACHINE OPERATOR.RESIDENTIAL APPRAISER - Fully Assessed Reason for Visit: Lab Orders [1688] Prescriptions as of 10/16/2024 - Magnesium 200 mg tab - Lactobacillus acidophilus (PROBIOTIC ACIDOPHILUS ORAL) Take by mouth. - ascorbic acid, vitamin C, (VITAMIN C) 125 mg chew - psyllium seed, with dextrose, (FIBER SUPPLEMENT ORAL) Take by mouth. - Multivitamin capsule Take 1 capsule by mouth once daily. - FERROUS SULFATE (IRON ORAL) Take by mouth. Problem List As Of Date 10/16/2024 Noted Resolved Supervision of normal first [Z34.00] 06/30/2008 08/14/2010 Transient hypertension of , antepartum*01/31/2009 08/14/2010 Female infertility of unspecified origin [N97.9] 05/06/2020 Clomid [O09.00] 07/29/2012 08/29/2015 Prior complicated by PIH, antepartum *07/29/2012 05/06/2020 History of antepartum hemorrhage [Z87.59] 07/29/2012 05/06/2020 Family history of defects [Z82.79] 07/29/2012 05/06/2020 Patient requested diagnostic testing [Z01.89] 07/29/2012 08/29/2015 Immunization due [Z23] 07/29/2012 02/17/2013 Supervision of other normal [Z34.80] 08/19/2012 08/29/2015 Calcified liver mass, right lobe [R16.0] 01/18/2022 Pancreatic mass [K86.89] 09/22/2024 History of colonic polyps [Z86.0100] 09/23/2024 Encounter Status:Closed by SARAH ZUNIGA on 10/16/24 [facility] Nikita 10-13-2024 [place] Telephone (ANDRE) ESTEFANI MISHRA ([id number]) 1980 F Date Time Provider Department 10/13/24 LINA RAINEY During your visit today, we recorded the following information about you: Lina Rainey APRN.CNP 10/13/2024 11:29 AM Signed Addended by: LINA RAINEY on: 10/13/2024 11:29 AM Modules accepted: Orders Lina Rainey APRN.CNP 10/13/2024 11:58 AM Signed Addended by: LINA RAINEY on: 10/13/2024 11:58 AM Modules accepted: Orders Allergies As of Date: 10/13/2024 (No Known Allergies) Date Reviewed: 09/22/2024 Reviewed by: Lina Rainey APRN.RESIDENTIAL APPRAISER - Fully Assessed Reason for Visit: Results [95] Cmt: MRI Pancreas Primary Visit Diagnosis:Anemia, unspecified type [D64.9] Other Visit Diagnosis: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 - ascorbic acid, vitamin C, (VITAMIN C) 125 mg chew - psyllium seed, with dextrose, (FIBER SUPPLEMENT ORAL) Take by mouth. - Multivitamin capsule Take 1 capsule by mouth once daily. - FERROUS SULFATE (IRON ORAL) Take by mouth. Problem List As Of Date 10/13/2024 Noted Resolved Supervision of normal first [Z34.00] 06/30/2008 08/14/2010 Transient hypertension of , antepartum*01/31/2009 08/14/2010 Female infertility of unspecified origin [N97.9] 05/06/2020 Clomid [O09.00] 07/29/2012 08/29/2015 Prior complicated by PIH, antepartum *07/29/2012 05/06/2020 History of antepartum hemorrhage [Z87.59] 07/29/2012 05/06/2020 Family history of defects [Z82.79] 07/29/2012 05/06/2020 Patient requested diagnostic testing [Z01.89] 07/29/2012 08/29/2015 Immunization due [Z23] 07/29/2012 02/17/2013 Supervision of other normal [Z34.80] 08/19/2012 08/29/2015 Calcified liver mass, right lobe [R16.0] 01/18/2022 Pancreatic mass [K86.89] 09/22/2024 History of colonic polyps [Z86.0100] 09/23/2024 Encounter Status:Closed by LINA RAINEY on 1/7/25 [facility] MRI 3D POST PROCESSINGon MRI 3D POST PROCESSING * * *Final Report* * * DATE OF EXAM: Oct 09 2024 9:00AM SHERIDAN 0280 - MRI 3D POST PROCESSING / PROCEDURE REASON: multiple diagnoses * * * * Physician Interpretation * * * * Examination: MRI PANC/BLAYNE WO/W IVCON, MRI 3D POST PROCESSING History: Pancreatic subcentimeter cyst. Biopsy-proven posterior right hepatic lobe benign lesion. Comparison: CT 12/21/2021. MRI of 08/07/2022 TECHNIQUE: Using the torso phased array coil, axial STIR, T1 weighted in- and ppn-cj-oawex and axial and coronal HASTE (multslice MRCP) images were obtained. Thick-slab heavily T2 weighted images (projection MRCP) were also obtained. Then, using a 3-D GRE T1 weighted sequence, dynamic images were obtained before, during and after the administration of intravenous Elucirem 7 cc Three dimensional imaging was created on a dedicated stand-alone 3D workstation RESULT: Patient has known densely calcified benign posterior right hepatic lobe mass. This is stable. 5.3 x 4.2 x 5.4 cm. No additional or suspicious hepatic lesion. No intrahepatic or extrahepatic biliary dilatation. Common duct is normal in course and caliber. No filling defect within it. Gallbladder appears normal. Pancreatic duct is normal in caliber. A few cystic lesions in the pancreas. The largest is 0.6 cm, located with in the tail. Stable. Nonenhancing. Likely sidebranch IPMN The spleen appears normal. The adrenal glands appear normal. No suspicious renal lesion or gross obstructive uropathy. No ascites or lymphadenopathy. The aorta is normal in caliber. Celiac artery and superior mesenteric artery are patent. Portal vein, splenic vein and superior mesenteric vein are patent. IVC and hepatic veins are patent. Lung bases appear unremarkable. Significant retained stool in the colon IMPRESSION: Stable subcentimeter cystic pancreatic foci. No worrisome features. Likely IPMN. Follow-up could be performed in 2 years Stable biopsy-proven benign right hepatic lesion. No developing hepatic mass Grader Patrol: [facility] Transcribe Date/Time: Oct 13 2024 9:48A Dictated by : VIKAS MORRISON MD This examination was interpreted and the report reviewed and electronically signed by: VIKAS MORRISON MD on Oct 13 2024 10:00AM EST [id number] Normal [facility] MRI PANC/BLAYNE WO/W IVCONon MRI PANC/BLAYNE WO/W IVCON * * *Final Report* * * DATE OF EXAM: Oct 09 2024 9:00AM WR 0730 - MRI PANC/BLAYNE WO/W IVCON / PROCEDURE REASON: multiple diagnoses * * * * Physician Interpretation * * * * Examination: MRI PANC/BLAYNE WO/W IVCON, MRI 3D POST PROCESSING History: Pancreatic subcentimeter cyst. Biopsy-proven posterior right hepatic lobe benign lesion. Comparison: CT 12/21/2021. MRI of 08/07/2022 TECHNIQUE: Using the torso phased array coil, axial STIR, T1 weighted in- and yes-kd-emwrr and axial and coronal HASTE (multslice MRCP) images were obtained. Thick-slab heavily T2 weighted images (projection MRCP) were also obtained. Then, using a 3-D GRE T1 weighted sequence, dynamic images were obtained before, during and after the administration of intravenous Elucirem 7 cc Three dimensional imaging was created on a dedicated stand-alone 3D workstation RESULT: Patient has known densely calcified benign posterior right hepatic lobe mass. This is stable. 5.3 x 4.2 x 5.4 cm. No additional or suspicious hepatic lesion. No intrahepatic or extrahepatic biliary dilatation. Common duct is normal in course and caliber. No filling defect within it. Gallbladder appears normal. Pancreatic duct is normal in caliber. A few cystic lesions in the pancreas. The largest is 0.6 cm, located with in the tail. Stable. Nonenhancing. Likely sidebranch IPMN The spleen appears normal. The adrenal glands appear normal. No suspicious renal lesion or gross obstructive uropathy. No ascites or lymphadenopathy. The aorta is normal in caliber. Celiac artery and superior mesenteric artery are patent. Portal vein, splenic vein and superior mesenteric vein are patent. IVC and hepatic veins are patent. Lung bases appear unremarkable. Significant retained stool in the colon IMPRESSION: Stable subcentimeter cystic pancreatic foci. No worrisome features. Likely IPMN. Follow-up could be performed in 2 years Stable biopsy-proven benign right hepatic lesion. No developing hepatic mass [employer]: [facility] Transcribe Date/Time: Oct 13 2024 9:48A Dictated by : VIKAS MORRISON, MD This examination was interpreted and the report reviewed and electronically signed by: VIKAS MORRISON MD on Oct 13 2024 10:00AM EST [id number] Normal [facility] CBC panel Auto (Bld)on 09-24 Erythrocyte distribution width (RBC) [Ratio] 15.4 % High 11.5-15.0 [facility] Comment on above: Order Comment: Speci men Type: BLOOD SPECIMENOrdering Facility: [facility] Address: [address] [place] [address] Performed By: #### 5 8410-2 ####[facility] [id number] [place] [address] [place] Hematocrit (Bld) [Volume fraction] 35.7 % Low 36.0-46.0 [facility] Comment on above: Order Comment: Speci men Type: BLOOD SPECIMENOrdering Facility: [facility] Address: [address] [place] [address] Performed By: #### 5 8410-2 ####[facility] [id number] [place] [address] [place] Hemoglobin (Bld) [Mass/Vol] 11.4 g/dL Low 11.5-15.5 [facility] Comment on above: Order Comment: Speci men Type: BLOOD SPECIMENOrdering Facility: [facility] Address: [address] [place] [address] Performed By: #### 5 8410-2 ####[facility] [id number] [place] [address] [place] MCH (RBC) [Entitic mass] 26.4 pg Normal 26.0-34.0 [facility] Comment on above: Order Comment: Speci men Type: BLOOD SPECIMENOrdering Facility: [facility] Address: [address] [place] [address] Performed By: #### 5 8410-2 ####[facility] COLINWNCLIA [id number] [place] [address] [place] MCHC (RBC) [Mass/Vol] 31.9 g/dL Normal 30.5-36.0 [facility] Comment on above: Order Comment: Speci men Type: BLOOD SPECIMENOrdering Facility: [facility] Address: [address] [place] [address] Performed By: #### 5 8410-2 ####[facility] CLAY COUNTYALISALIA [id number] [place] [address] [place] MCV (RBC) [Entitic vol] 82.6 fL Normal 80.0-100.0 [facility] Comment on above: Order Comment: Speci men Type: BLOOD SPECIMENOrdering Facility: [facility] Address: [address] [place] [address] Performed By: #### 5 8410-2 ####[facility] [id number] [place] [address] [place] Nucleated RBC (Bld) [#/Vol] 10*3/uL Normal <0.01 [facility] Comment on above: Order Comment: Speci men Type: BLOOD SPECIMENOrdering Facility: [facility] Address: [address] [place] [address] Performed By: #### 5 8410-2 ####[facility] [id number] [place] [address] [place] Platelet mean volume (Bld) [Entitic vol] 10.3 fL Normal 9.0-12.7 [facility] Comment on above: Order Comment: Speci men Type: BLOOD SPECIMENOrdering Facility: [facility] Address: [address] [place] [address] Performed By: #### 5 8410-2 ####[facility] CLAY COUNTYNCLI [id number] [place] [address] [place] Platelets (Bld) [#/Vol] 230 10*3/uL Normal 150-400 [facility] Comment on above: Order Comment: Speci men Type: BLOOD SPECIMENOrdering Facility: [facility] Address: [address] [place] [address] Performed By: #### 5 8410-2 ####[facility] CLAY COUNTYNCLIA [id number] [place] [address] [place] RBC (Bld) [#/Vol] 4.32 10*6/uL Normal 3.90-5.20 [facility] Comment on above: Order Comment: Speci men Type: BLOOD SPECIMENOrdering Facility: [facility] Address: [address] [place] [address] Performed By: #### 5 8410-2 ####[facility] CLAY COUNTYNCLIA [id number] [place] [address] [place] WBC (Bld) [#/Vol] 5.61 10*3/uL Normal 3.70-11.00 [facility] Comment on above: Order Comment: Speci men Type: BLOOD SPECIMENOrdering Facility: [facility] Address: [address] [place] [address] Performed By: #### 5 8410-2 ####[facility] CLAY COUNTYNCLIA [id number] [place] [address] [place] Nikita 09-24-2024 [place] Telephone (ANDRE) ESTEFANI MISHRA ([id number]) 1980 F Date Time Provider Department 09/24/24 LINA RAINEY During your visit today, we recorded the following information about you: Lina Rainey APRN.CNP 09/24/2024 11:47 PM Signed Labs are normal besides mild low blood counts Recheck in 2-4 weeks, please add reminder. Lina Rainey APRN.CLIVE Pepe Guadalupe MA 09/25/2024 7:16 AM Signed Reminder placed. Pepe Guadalupe TAMMY DipikaPepe ryan MA 09/25/2024 8:56 AM Signed Patient received her my chart message. Pepe Guadalupe MA Allergies As of Date: 09/24/2024 (No Known Allergies) Date Reviewed: 09/22/2024 Reviewed by: Lina Rainey APRN.CNP - Fully Assessed Reason for Visit: Results [95] Cmt: Labs Prescriptions as of 09/25/2024 - Magnesium 200 mg tab - Lactobacillus acidophilus (PROBIOTIC ACIDOPHILUS ORAL) Take by mouth. - ascorbic acid, vitamin C, (VITAMIN C) 125 mg chew - psyllium seed, with dextrose, (FIBER SUPPLEMENT ORAL) Take by mouth. - Multivitamin capsule Take 1 capsule by mouth once daily. - FERROUS SULFATE (IRON ORAL) Take by mouth. Problem List As Of Date 09/24/2024 Noted Resolved Supervision of normal first [Z34.00] 06/30/2008 08/14/2010 Transient hypertension of , antepartum*01/31/2009 08/14/2010 Female infertility of unspecified origin [N97.9] 05/06/2020 Clomid [O09.00] 07/29/2012 08/29/2015 Prior complicated by PIH, antepartum *07/29/2012 05/06/2020 History of antepartum hemorrhage [Z87.59] 07/29/2012 05/06/2020 Family history of defects [Z82.79] 07/29/2012 05/06/2020 Patient requested diagnostic testing [Z01.89] 07/29/2012 08/29/2015 Immunization due [Z23] 07/29/2012 02/17/2013 Supervision of other normal [Z34.80] 08/19/2012 08/29/2015 Calcified liver mass, right lobe [R16.0] 01/18/2022 Pancreatic mass [K86.89] 09/22/2024 History of colonic polyps [Z86.0100] 09/23/2024 Encounter Status:Closed by PEPE GUADALUPE on 09/25/24 Normal [facility] Comprehensive metabolic 2000 panelon 09-24-2024 Albumin [Mass/Vol] 4.4 g/dL Normal 3.9-4.9 [facility] Comment on above: Order Comment: Speci men Type: BLOOD SPECIMENOrdering Facility: [facility] Address: [address] [place] [address] Performed By: #### 2 4323-8 ####[facility] MILLWNCLIA [id number] [place] [address] [place] ALP [Catalytic activity/Vol] 49 U/L Normal 34-123 [facility] Comment on above: Order Comment: Speci men Type: BLOOD SPECIMENOrdering Facility: [facility] Address: [address] [place] [address] Performed By: #### 2 4323-8 ####[facility] MILLWNCLIA [id number] [place] [address] [place] ALT [Catalytic activity/Vol] 10 U/L Normal 7-38 [facility] Comment on above: Order Comment: Speci men Type: BLOOD SPECIMENOrdering Facility: [facility] Address: [address] [place] [address] Performed By: #### 2 4323-8 ####[facility] MILLWNCLIA [id number] [place] [address] [place] Anion gap [Moles/Vol] 10 mmol/L Normal 8-15 [facility] Comment on above: Order Comment: Speci men Type: BLOOD SPECIMENOrdering Facility: [facility] Address: [address] [place] [address] Performed By: #### 2 4323-8 ####[facility] MILLTOWNCLIA [id number] [place] [address] [place] AST [Catalytic activity/Vol] 18 U/L Normal 13-35 [facility] Comment on above: Order Comment: Speci men Type: BLOOD SPECIMENOrdering Facility: [facility] Address: [address] [place] [address] Performed By: #### 2 4323-8 ####[facility] CLAY COUNTYNCLIA [id number] [place] [address] [place] Bilirubin [Mass/Vol] 0.5 mg/dL Normal 0.2-1.3 [facility] Comment on above: Order Comment: Speci men Type: BLOOD SPECIMENOrdering Facility: [facility] Address: [address] [place] [address] Performed By: #### 2 4323-8 ####[facility] [id number] [place] [address] [place] Calcium [Mass/Vol] 9.1 mg/dL Normal 8.5-10.2 [facility] Comment on above: Order Comment: Speci men Type: BLOOD SPECIMENOrdering Facility: [facility] Address: [address] [place] [address] Performed By: #### 2 4323-8 ####[facility] [id number] [place] [address] [place] Chloride [Moles/Vol] 106 mmol/L Normal 98-107 [facility] Comment on above: Order Comment: Speci men Type: BLOOD SPECIMENOrdering Facility: [facility] Address: [address] [place] [address] Performed By: #### 2 4323-8 ####[facility] CLAY COUNTYNCLI [id number] [place] [address] [place] CO2 [Moles/Vol] 23 mmol/L Normal 22-30 [facility] Comment on above: Order Comment: Speci men Type: BLOOD SPECIMENOrdering Facility: [facility] Address: [address] [place] [address] Performed By: #### 2 4323-8 ####[facility] [id number] [place] [address] [place] Creatinine [Mass/Vol] 0.97 mg/dL High 0.58-0.96 [facility] Comment on above: Order Comment: Lanette elaine Type: BLOOD SPECIMENOrdering Facility: [facility] Address: [address] [place] [address] Performed By: #### 2 4323-8 ####[facility] [id number] [place] [address] [place] Creatinine and Glomerular filtration rate.predicted panel (S/P/Bld) 74 mL/min/1.73m??? Normal >=60 [facility] Comment on above: Order Comment: Lanette elaine Type: BLOOD SPECIMENOrdering Facility: [facility] Address: [address] [place] [address] Result Comment: Lucia mated Glomerular Filtration Rate (eGFR) is calculated using the 2020 CKD-EPI creatinine equation. This equation utilizes serum creatinine, sex, and age as parameters. The creatinine assay has traceable calibration to isotope dilution-mass spectrometry. Refer to KDIGO guidelines for clinical interpretation. In patients with unstable renal function, e.g. those with acute kidney injury, the eGFR may not accurately reflect actual GFR. Performed By: #### 2 4323-8 ####[facility]ENTER[facility]IA [id number] [place] [address] [place] Glucose [Mass/Vol] 88 mg/dL Normal 74-99 [facility] Comment on above: Order Comment: Lanette elaine Type: BLOOD SPECIMENOrdering Facility: [facility] Address: [address] [place] [address] Result Comment: The [place] Diabetes Association (ADA) provides guidance for cutoff values for fasting glucose and random glucose. The ADA defines fasting as no caloric intake for at least 8 hours. Fasting plasma glucose results between 100 to 125 mg/dL indicate increased risk for diabetes (prediabetes). Fasting plasma glucose results greater than or equal to 126 mg/dL meet the criteria for diagnosis of diabetes. In the absence of unequivocal hyperglycemia, results should be confirmed by repeat testing. In a patient with classic symptoms of hyperglycemia or hyperglycemic crisis, random plasma glucose results greater than or equal to 200 mg/dL meet the criteria for diagnosis of diabetes. Reference: Standards of Medical Care in Diabetes 2016, [place] Diabetes Association. Diabetes Care. 2016.39(Suppl 1). Performed By: #### 2 4323-8 ####[facility] MILLTOWNCLIA [id number] [place] [address] [place] Potassium [Moles/Vol] 4.3 mmol/L Normal 3.7-5.1 [facility] Comment on above: Order Comment: Speci men Type: BLOOD SPECIMENOrdering Facility: [facility] Address: [address] [place] [address] Performed By: #### 2 4323-8 ####[facility]WNJLIA [id number] [place] [address] [place] Protein [Mass/Vol] 6.6 g/dL Normal 6.3-8.0 [facility] Comment on above: Order Comment: Dwaynei men Type: BLOOD SPECIMENOrdering Facility: [facility] Address: [address] [place] [address] Performed By: #### 2 4323-8 ####[facility]ENTER[facility]IA [id number] [place] [address] [place] Sodium [Moles/Vol] 139 mmol/L Normal 136-144 [facility] Comment on above: Order Comment: Speci men Type: BLOOD SPECIMENOrdering Facility: [facility] Address: [address] [place] [address] Performed By: #### 2 4323-8 ####[facility]STITUTEWNCLIA [id number] [place] [address] [place] Urea nitrogen [Mass/Vol] 16 mg/dL Normal 7-21 [facility] Comment on above: Order Comment: Speci men Type: BLOOD SPECIMENOrdering Facility: [facility] Address: [address] [place] [address] Performed By: #### 2 4323-8 ####[facility]ENTERLIA [id number] [place] [address] [place] Lipase SerPl-cCncon 09-24-20 24 Lipase [Catalytic activity/Vol] 38 U/L Normal 16-61 [facility] Comment on above: Order Comment: Speci men Type: BLOOD SPECIMENOrdering Facility: [facility] Address: [address] [place] [address] Performed By: #### 2 4331-1 ####[facility] LABCLIA [id number] [address] [id number] [place] [address] [place]#### 3040-3 ####[facility] LABCLIA [id number] [place] [address] [place] Lipid 1996 panelon 4 Cholesterol [Mass/Vol] 150 mg/dL Normal <200 [facility] Comment on above: Order Comment: Speci men Type: BLOOD SPECIMENOrdering Facility: [facility] Address: [address] [place] [address] Result Comment: <200 mg/dL, Desirable 200-239 mg/dL, Borderline high >239 mg/dL, High Performed By: #### 2 4331-1 ####[facility] LABCLIA [id number] [address] STATES OF [facility] [id number] [place] [address] [place]#### 3040-3 ####[facility] LABCLIA [id number] [place] [address] [place] Cholesterol in HDL [Mass/Vol] 63 mg/dL Normal >39 [facility] Comment on above: Order Comment: Speci men Type: BLOOD SPECIMENOrdering Facility: [facility] Address: [address] [place] [address] Result Comment: 40-5 9 mg/dL, Acceptable >59 mg/dL, High: Negative risk factor for coronary heart disease <40 mg/dL, Low: Positive risk factor for coronary heart disease Performed By: #### 2 4331-1 ####[facility] LABCLIA [id number] [address] STATES [facility] [id number] [place] [address] [place]#### 3040-3 ####[facility] LABCLIA [id number] [place] [address] [place] Cholesterol in LDL [Mass/Vol] 74 mg/dL Normal <100 [facility] Comment on above: Order Comment: Speci men Type: BLOOD SPECIMENOrdering Facility: [facility] Address: [address] [place] [address] Result Comment: <100 mg/dL, Optimal 100-129 mg/dL, Near optimal/above optimal 130-159 mg/dL, Borderline high 160-189 mg/dL, High >189 mg/dL, Very high Secondary prevention optimal LDL Cholesterol levels are recommended to be < 70 mg/dL Performed By: #### 2 4331-1 ####[facility] LABCLIA [id number] [address] STATES OF [facility] [id number] [place] [address] [place]#### 3040-3 ####[facility] LABCLIA [id number] [address] Cholesterol in LDL/Cholesterol in HDL [Mass ratio] 1.17 {ratio} Normal <2.54 [facility] Comment on above: Order Comment: Speci men Type: BLOOD SPECIMENOrdering Facility: [facility] Address: [address] [place] [address] Result Comment: Andrew bowling: 1. National Cholesterol Education Program ATP III Guideline At-A-Glance Quick Desk Reference: National Heart, Lung, and Blood [place]. National Institutes of Health. 2001: NIH Publication No. 01-3305. 2. An International Atherosclerosis Society position paper: global recommendations for the management of dyslipidemia: executive summary, Atherosclerosis. 2014: 232(2):410-413. Performed By: #### 2 4331-1 ####[facility] LABCLIA [id number] [address] STATES [facility] [id number] [place] [address] [place]#### 3040-3 ####[facility] LABCLIA [id number] [address] [place] Cholesterol in VLDL [Mass/Vol] 13 mg/dL Normal <30 [facility] Comment on above: Order Comment: Speci men Type: BLOOD SPECIMENOrdering Facility: [facility] Address: [address] [place] [address] Performed By: #### 2 4331-1 ####[facility] LABCLIA [id number] [place] [address] [place] [facility] [id number] [place] [address] [place]#### 3040-3 ####[facility] LABCLIA [id number] [place] [address] [place] Cholesterol non HDL [Mass/Vol] 87 mg/dL Normal <130 [facility] Comment on above: Order Comment: Speci men Type: BLOOD SPECIMENOrdering Facility: [facility] Address: [address] [place] [address] Result Comment: <130 mg/dL, Optimal 130-159 mg/dL, Near optimal/above optimal 160-189 mg/dL, Borderline high 190-219 mg/dL, High >219 mg/dL, Very high Secondary prevention optimal non HDL Cholesterol levels are recommended to be <100 mg/dL Performed By: #### 2 4331-1 ####[facility] LABCLIA [id number] [id number] [place] [address] [place]#### 3040-3 ####[facility] LABCLIA [id number] [place] [address] [place] Cholesterol.total/C holesterol in HDL [Mass ratio] 2.38 {ratio} Normal <5.10 [facility] Comment on above: Order Comment: Speci men Type: BLOOD SPECIMENOrdering Facility: [facility] Address: [address] [place] [address] Performed By: #### 2 4331-1 ####[facility] LABCLIA [id number] [address] STATES [facility] [id number] [place] [address] [place]#### 3040-3 ####[facility] LABCLIA [id number] [place] [address] [place] FASTING TIME 13 hrs Normal [facility] Comment on above: Order Comment: Speci men Type: BLOOD SPECIMENOrdering Facility: [facility] Address: [address] [place] [address] Performed By: #### 2 4331-1 ####[facility] LABCLIA [id number] [place] [id number] [facility] [id number] [place] [address] [place]#### 3040-3 ####[facility] LABCLIA [id number] [place] [address] [place] Triglyceride [Mass/Vol] 63 mg/dL Normal <150 [facility] Comment on above: Order Comment: Speci men Type: BLOOD SPECIMENOrdering Facility: [facility] Address: [facility] [place] [address] Result Comment: <150 mg/dL, Normal 150-199 mg/dL, Borderline high 200-499 mg/dL, High >499 mg/dL, Very high Performed By: #### 2 4331-1 ####[facility] LABIA [id number] [address] [id number] [address] [place]#### 3040-3 ####[facility] LABIA [id number] [address] [place] CNOVon 09-22-2024 CNOV Office Visit (ANDRE) ESTEFANI MISHRA ([id number]) 1980 F Date Time Provider Department 09/22/24 11:20 AM LINA RAINEY During your visit today, we recorded the following information about you: Temperature Pulse Blood pressure Weight 98.2 degrees 62/minute 106/78 77.1 kg Height 1.689 m Lina Rainey APRN.CLIVE 09/25/2024 12:21 PM Addendum Subjective Estefani Mishra is a 43 year old female here today for establish care. I reviewed past medical, surgical, social, and family histories today and updated chart. Allergies, chronic medications, and supplements were also reviewed. 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 Liver biopsy done February 2022 - no evidence of atypia or malignancy seen scarred tissue/calcifications GI's plan was for MRCP in 6 months, she had forgotten about it Patient was having abdominal pain and bowel changes in 2020, thought is was from stress She saw Ashley Nevarez GI - had EGD and colonoscopy done July 2021, had colon polyp and will be due for repeat next year Overall stomach has been better Will take dicyclomine Rx randomly for pain that is persistent, usually end of the day and in the morning feels better Knows she needs to take her daily fiber Follows gluten free mostly due to being GF Left foot pain - started in the fall, blood work done and it was normal Diagnosed with neuroma and had cortisone shot around April Got worse in August Burning severe pain at bedtime She donates blood on a regular basis PAST MEDICAL HISTORY Diagnosis Date Adenomatous colon polyp Anemia DURING COLLEGE Female infertility of unspecified origin Female infertility Liver function study, abnormal BENIGN CALCIFICATION OF LIVER Transient hypertension of , unspecified as to episode of care PAST SURGICAL HISTORY Procedure Laterality Date COLONOSCOPY GEN ANES 07/27/2021 EGD 07/27/2021 NONE ALLERGIES Patient has no known allergies. MEDICATIONS Magnesium 200 mg tab Lactobacillus acidophilus (PROBIOTIC ACIDOPHILUS ORAL) Take by mouth. ascorbic acid, vitamin C, (VITAMIN C) 125 mg chew psyllium seed, with dextrose, (FIBER SUPPLEMENT ORAL) Take by mouth. Multivitamin capsule Take 1 capsule by mouth once daily. FERROUS SULFATE (IRON ORAL) Take by mouth. FAMILY HISTORY Problem Relation Age of Onset Breast Cancer Mother Hypertension Mother other (Gallbladder Disease) Mother Gallbladder Removed Heart Father valve replacement Breast Cancer Maternal Grandmother Aneurysm Maternal Grandfather stomach Heart Paternal Grandmother Cancer Paternal Grandfather Pancreatic Cancer Maternal Uncle Colon Cancer No Family History Social History Tobacco Use Smoking status: Never Passive exposure: Never Smokeless tobacco: Never Vaping Use Vaping status: Never Used Substance Use Topics Alcohol use: Yes Comment: Seldom,NOT WHILE Drug use: No Review of Systems Constitutional: Positive for diaphoresis. Negative for appetite change, chills, fatigue, fever and unexpected weight change. Feels like she is in perimenopause Sees [employer] Periods are irregular, cycles 19-60 days No regular night sweats - just a time or two Weight does fluctuate Works out every day 40 min Rarely skips a meal HENT: Negative for congestion, ear pain, rhinorrhea and sore throat. Eyes: Negative for pain, discharge, itching and visual disturbance. Respiratory: Negative for cough, shortness of breath and wheezing. Recent respiratory virus - getting better finally Took claritin for a few days and this did help Cardiovascular: Negative for chest pain, palpitations and leg swelling. Gastrointestinal: Positive for abdominal pain. Negative for blood in stool, constipation, diarrhea, nausea and vomiting. Not completely regular, does not have BM every day Can go 2-3 days without Occasional heart burn Genitourinary: Occasional stress incontinence - jumping/coughing Musculoskeletal: Positive for arthralgias (hips). Skin: Negative for rash. Allergic/Immunologic: Negative for environmental allergies. Neurological: Positive for headaches (occasionally). Negative for dizziness, tremors and weakness. Psychiatric/Behavioral : Negative for dysphoric mood and sleep disturbance. The patient is not nervous/anxious. Objective BP 106/78 Pulse 62 Temp 98.2 Ht 5' 6.5 (1.69m) Wt 170 lb (77.1kg) SpO2 100% LMP 08/09/2024 BMI 27.03 kg/(m2). Physical Exam Constitutional: General: She is not in acute distress. Appearance: Normal appearance. She is not toxic-appearing. HENT: Head: Normocephalic and atraumatic. Mouth/Throat: Lips: [place]. Mouth: Mucous membranes are moist. (more content not included)... Normal [facility] CNOVon 09-08-2024 CNOV Office Visit (UCWSTR ) ESTEFANI MISHRA ([id number]) 1980 F Date Time Provider Department 09/08/24 4:00 PM DAVIDA GODFREY During your visit today, we recorded the following information about you: Temperature Pulse Respiration Blood pressure 97.8 degrees 60/minute 16/minute 136/88 Weight 80.6 kg Sisi Barrios APRN.RESIDENTIAL APPRAISER 09/08/2024 4:55 PM Signed CC: Patient presents with: Cough: dry, head congestion and sob seen 08/23 no better HPI: Estefani Mishra is a 43 year old female who presents to the office with complaint of cough, nonproductive for 2 weeks. Symptoms are staying the same. Associated symptoms includes cough and dyspnea. Denies headache, body aches, fever, nausea, vomiting , and diarrhea. Treatments tried include nothing so far. with no relief of symptoms. Sick contacts: unknown. History of asthma, frequent episodes of bronchitis, chronic bronchitis, bronchiectasis or COPD: No Smoker: No Seasonal/environmental allergies: No The ROS is otherwise negative. The patient's pmh, medications, allergies, and past visits are reviewed. PHYSICAL EXAM: BP 136/88 Pulse 60 Temp 36.6 ?C (97.8 ?F) Resp 16 Wt 80.6 kg (177 lb 11.1 oz) LMP 08/09/2024 (Exact Date) SpO2 99% BMI 28.46 kg/m? General appearance: alert, cooperative, pleasant, in no acute distress Head: Normocephalic Eyes: EOM's intact, conjunctiva pink and moist, no icterus, sclera white, non-injected Ears: Right ear: External ear/canal- Normal, TM - clear with good landmarks. Left ear: External ear/canal- Normal, TM - clear with good landmarks Oropharynx:moist without lesions, No erythema, exudates or tonsillar hypertrophy. Mild cervical adenopathy Heart: Negative. RRR without obvious murmur, gallop, or rubs. No ectopy. Lungs: rhonchi right middle lobe PAST MEDICAL HISTORY Diagnosis Date Adenomatous colon polyp Anemia DURING COLLEGE Female infertility of unspecified origin Female infertility Liver function study, abnormal BENIGN CALCIFICATION OF LIVER Transient hypertension of , unspecified as to episode of care PAST SURGICAL HISTORY Procedure Laterality Date COLONOSCOPY GEN ANES 07/27/2021 EGD 07/27/2021 NONE ALLERGIES Patient has no known allergies. MEDICATIONS Magnesium 200 mg tab Lactobacillus acidophilus (PROBIOTIC ACIDOPHILUS ORAL) Take by mouth. ascorbic acid, vitamin C, (VITAMIN C) 125 mg chew psyllium seed, with dextrose, (FIBER SUPPLEMENT ORAL) Take by mouth. Multivitamin capsule Take 1 capsule by mouth once daily. FERROUS SULFATE (IRON ORAL) Take by mouth. FAMILY HISTORY Problem Relation Age of Onset Breast Cancer Mother Hypertension Mother other (Gallbladder Disease) Mother Gallbladder Removed Heart Father valve replacement Breast Cancer Maternal Grandmother Aneurysm Maternal Grandfather Heart Paternal Grandmother Cancer Paternal Grandfather Pancreatic Cancer Maternal Uncle Colon Cancer No Family History Social History Tobacco Use Smoking status: Never Passive exposure: Never Smokeless tobacco: Never Vaping Use Vaping status: Never Used Substance Use Topics Alcohol use: Yes Comment: Seldom,NOT WHILE Drug use: No ASSESSMENT/PLAN: 1. Acute cough - ICD9: 786.2, ICD10: R05.1 (primary diagnosis) - XR CHEST 2V FRONTAL/LAT * * * * Physician Interpretation * * * * EXAMINATION: CHEST RADIOGRAPH (2 VIEW FRONTAL AND LATERAL) CLINICAL HISTORY: Acute cough MQ: XC2_6 EXAM DATE/TIME: 09/08/2024 4:21 PM COMPARISON: Chest x-ray dated 08/16/2022 RESULT: Lines, tubes, and devices: None. Lungs and pleura: No consolidation. No lung mass. No pleural effusion. No pneumothorax. Cardiomediastinal silhouette: Normal cardiomediastinal silhouette. Bones and soft tissues: Redemonstration of a calcified right hepatic mass, a finding present dating back to at least December 2021. IMPRESSION IMPRESSION: No acute radiographic abnormality. Grader Patrol: DESIREE Transcribe Date/Time: Sep 08 2024 4:22P Dictated by : JAMIE ELLIS MD 2. Rhinosinusitis - ICD9: 473.9, ICD10: J32.9 - DOXYCYCLINE HYCLATE 100 MG TABLET Prescription instructions reviewed with patient as applicable. Potential red flag symptoms discussed with the patient. Reviewed appropriate action plan to take if red flag symptoms occur. Patient agreeable to treatment plan. Chest x-ray patient is not sure if she followed up with her MRI. Patient was going to get established with a primary care and ask about possible follow-up MRI. Sisi Barrios APRN.RESIDENTIAL APPRAISER Allergies As of Date: 09/08/2024 (No Known Allergies) Date Reviewed: 09/08/2024 Reviewed by: Vivienne Gil MA - Fully Assessed Reason for Visit: Cough [28] Cmt: dry, head congestion and sob seen 08/23 no better Primary Visit Diagnosis:Acute cough [R05.1] Other Visit Diagnosis:Rhinosinusit is [J32.9] Order(s) (more content not included)... Normal [facility] XR CHEST 2V FRONTAL/LATon XR CHEST 2V FRONTAL/LAT * * *Final Report* * * DATE OF EXAM: Sep 08 2024 4:21PM WOX [id number] - XR CHEST 2V FRONTAL/LAT / PROCEDURE REASON: Acute cough * * * * Physician Interpretation * * * * EXAMINATION: CHEST RADIOGRAPH (2 VIEW FRONTAL and LATERAL) CLINICAL HISTORY: Acute cough MQ: XC2_6 EXAM DATE/TIME: 09/08/2024 4:21 PM COMPARISON: Chest x-ray dated 08/16/2022 RESULT: Lines, tubes, and devices: None. Lungs and pleura: No consolidation. No lung mass. No pleural effusion. No pneumothorax. Cardiomediastinal silhouette: Normal cardiomediastinal silhouette. Bones and soft tissues: Redemonstration of a calcified right hepatic mass, a finding present dating back to at least December 2021. IMPRESSION: No acute radiographic abnormality. Grader Patrol: DESIREE Transcribe Date/Time: Sep 08 2024 4:22P Dictated by : JAMIE ELLIS MD This examination was interpreted and the report reviewed and electronically signed by: JAMIE ELLIS MD on Sep 08 2024 4:23PM EST [id number] Normal [facility] XR Chest PA and Lateralon IMPRESSION: No acute radiographic abnormality. Grader Patrol: DESIREE Transcribe Date/Time: Sep 08 2024 4:22P Dictated by : JAMIE ELLIS MD This examination was interpreted and the report reviewed and electronically signed by: JAMIE ELLIS MD on Sep 08 2024 4:23PM EST DIVISION OF RADIOLOGY * * *Final Report* * * DATE OF EXAM: Sep 08 2024 4:21PM WOX [id number] - XR CHEST 2V FRONTAL/LAT / PROCEDURE REASON: Acute cough * * * * Physician Interpretation * * * * EXAMINATION: CHEST RADIOGRAPH (2 VIEW FRONTAL & LATERAL) CLINICAL HISTORY: Acute cough MQ: XC2_6 EXAM DATE/TIME: 09/08/2024 4:21 PM COMPARISON: Chest x-ray dated 08/16/2022 RESULT: Lines, tubes, and devices: None. Lungs and pleura: No consolidation. No lung mass. No pleural effusion. No pneumothorax. Cardiomediastinal silhouette: Normal cardiomediastinal silhouette. Bones and soft tissues: Redemonstration of a calcified right hepatic mass, a finding present dating back to at least December 2021. DIVISION OF RADIOLOGY Provider, [facility] - 09/08/2024 * * *Final Report* * * DATE OF EXAM: Sep 08 2024 4:21PM WOX 5291 - XR CHEST 2V FRONTAL/LAT / PROCEDURE REASON: Acute cough * * * * Physician Interpretation * * * * EXAMINATION: CHEST RADIOGRAPH (2 VIEW FRONTAL & LATERAL) CLINICAL HISTORY: Acute cough MQ: XC2_6 EXAM DATE/TIME: 09/08/2024 4:21 PM COMPARISON: Chest x-ray dated 08/16/2022 RESULT: Lines, tubes, and devices: None. Lungs and pleura: No consolidation. No lung mass. No pleural effusion. No pneumothorax. Cardiomediastinal silhouette: Normal cardiomediastinal silhouette. Bones and soft tissues: Redemonstration of a calcified right hepatic mass, a finding present dating back to at least December 2021. IMPRESSION IMPRESSION: No acute radiographic abnormality. Grader Patrol: PSCB Transcribe Date/Time: Sep 08 2024 4:22P Dictated by : JAMIE ELLIS MD This examination was interpreted and the report reviewed and electronically signed by: JAMIE ELLIS MD on Sep 08 2024 4:23PM EST [facility] Radiology Study observation (narrative) [facility] XR Chest PA and LateralOrder ed By: [facility] Provider on 09-08-2024 [facility] CNOVon 08-23-2024 CNOV Office Visit (UCWSTR ) ESTEFANI MISHRA ([id number]) 1980 F Date Time Provider Department 08/23/24 10:15 AM FELICITA FIGUEROA [facility] During your visit today, we recorded the following information about you: Temperature Pulse Respiration Blood pressure 98.1 degrees 81/minute 16/minute 130/93 Weight Last Period 76.1 kg 08/09/24 Felicita Figueroa APRN.RESIDENTIAL APPRAISER 08/23/2024 12:12 PM Signed Subjective Estefani Mishra is a 43 year old female who presents with congestion, cough, headache and fatigue x 2 days. Cough Associated symptoms include chills, headaches and shortness of breath. Pertinent negatives include no chest pain, no ear pain and no sore throat. Patient states she has a recent sick exposure as her son was diagnosed with pneumonia two weeks ago. Today she reports a non-productive cough with nasal congestion, headache and increased fatigue. Patient is drinking fluids well, decrease in appetite for solid foods. She reports a fever, highest temperature at home 99.4 and chills. She denies runny nose, sore throat, chest pain, ear pain, nausea, vomiting and diarrhea. She confirms that she is having mild shortness of breath. She reports using OTC Nyquil and Dayquil with minimal relief. Review of Systems Constitutional: Positive for chills, fever and malaise/fatigue. HENT: Positive for congestion. Negative for ear pain and sore throat. Eyes: Negative. Respiratory: Positive for cough and shortness of breath. Cardiovascular: Negative for chest pain. Gastrointestinal: Negative for abdominal pain, diarrhea, nausea and vomiting. Genitourinary: Negative. Musculoskeletal: Negative. Skin: Negative. Neurological: Positive for headaches. Psychiatric/Behavioral : Negative. PAST MEDICAL HISTORY Diagnosis Date Adenomatous colon polyp Anemia DURING COLLEGE Female infertility of unspecified origin Female infertility Liver function study, abnormal BENIGN CALCIFICATION OF LIVER Transient hypertension of , unspecified as to episode of care PAST SURGICAL HISTORY Procedure Laterality Date COLONOSCOPY GEN ANES 07/27/2021 EGD 07/27/2021 NONE ALLERGIES Patient has no known allergies. MEDICATIONS Magnesium 200 mg tab Lactobacillus acidophilus (PROBIOTIC ACIDOPHILUS ORAL) Take by mouth. ascorbic acid, vitamin C, (VITAMIN C) 125 mg chew psyllium seed, with dextrose, (FIBER SUPPLEMENT ORAL) Take by mouth. Multivitamin capsule Take 1 capsule by mouth once daily. FERROUS SULFATE (IRON ORAL) Take by mouth. FAMILY HISTORY Problem Relation Age of Onset Breast Cancer Mother Hypertension Mother other (Gallbladder Disease) Mother Gallbladder Removed Heart Father valve replacement Breast Cancer Maternal Grandmother Aneurysm Maternal Grandfather Heart Paternal Grandmother Cancer Paternal Grandfather Pancreatic Cancer Maternal Uncle Colon Cancer No Family History Social History Tobacco Use Smoking status: Never Passive exposure: Never Smokeless tobacco: Never Vaping Use Vaping status: Never Used Substance Use Topics Alcohol use: Yes Comment: Seldom,NOT WHILE Drug use: No BP 130/93 Pulse 81 Temp 36.7 ?C (98.1 ?F) (Right Tympanic) Resp 16 Wt 76.1 kg (167 lb 12.3 oz) LMP 08/09/2024 (Exact Date) SpO2 98% BMI 26.87 kg/m? Objective Physical Exam Constitutional: Appearance: Normal appearance. HENT: Head: Normocephalic. Right Ear: Tympanic membrane normal. Left Ear: Tympanic membrane normal. Mouth/Throat: Mouth: Mucous membranes are moist. Pharynx: Oropharynx is clear. Cardiovascular: Rate and Rhythm: Normal rate and regular rhythm. Pulses: Normal pulses. Heart sounds: Normal heart sounds. Pulmonary: Effort: Pulmonary effort is normal. Breath sounds: Normal breath sounds. Comments: Non-productive cough noted. Abdominal: General: There is no distension. Palpations: Abdomen is soft. Tenderness: There is no abdominal tenderness. Musculoskeletal: General: Normal range of motion. Cervical back: Normal range of motion and neck supple. No tenderness. Lymphadenopathy: Cervical: No cervical adenopathy. Skin: General: Skin is warm and dry. Neurological: General: No focal deficit present. Mental Status: She is alert. Psychiatric: Mood and Affect: Mood normal. Behavior: Behavior normal. ASSESSMENT/PLAN: 1. Viral URI with cough - ICD9: 465.9, ICD10: J06.9 - Discussed viral etiology and rationale for treatment. - Symptomatic treatment with prn analgesia - Supportive care with fluids and rest - The patient may also use Robitussin or Delsym for cough. - Follow up in 3-5 days if symptoms persist or sooner if worsening of symptoms - XR CHEST 2V FRONTAL/LAT-FUTURE ORDER Dicussed plan of care with patient. Offered patient prescription for Tessalon Pearls for cough, patient declined. Advised patient that ch (more content not included)... Normal [facility] PEDRO SCREENING W TOMOon 08-20 PEDRO SCREENING W LAYLA * * *Final Report* * * DATE OF EXAM: Aug 20 2024 8:33AM WRW [id number] - PEDRO SCREENING W LAYLA / PROCEDURE REASON: Encounter for screening mammogram for breast cancer * * * * Physician Interpretation * * * * RESULT: [place] [address] [place] [id number] HISTORY: Patient is 43 years old and is seen for screening and is asymptomatic in both breasts. Patient states no personal history of breast cancer. Patient states no personal history of other cancers. COMPARISON STUDIES: The present examination has been compared to prior imaging studies dated 05/15/2021 (mammogram), 07/13/2022 (mammogram) and 08/19/2023 (mammogram). MAMMOGRAM TECHNIQUE: The study was acquired using full field digital technology and interpreted from soft copy. Digital Breast Tomosynthesis (DBT) images were obtained and used to assist in the interpretation of this examination. Computer-aided detection was utilized by the radiologist in the interpretation of this examination. MAMMOGRAM FINDINGS: There are scattered areas of fibroglandular density. There is a biopsy marking clip in the left breast. No suspicious masses, calcifications or other abnormalities are seen in either breast. There are no significant changes from the prior study. IMPRESSION: There is no mammographic evidence of malignancy in either breast. Routine screening mammogram is recommended. Annual mammogram will be due in 1 year. BI-RADS Category 1: Negative RISK: Based on the Tyrer-Cuzick (TC) risk assessment model, this patient has a 20.7% lifetime risk of developing breast cancer, meaning they are at high risk for developing breast cancer. However, this is only an estimate based on available history provided on the patient's questionnaire. Because patients with a lifetime risk of 20% or greater may benefit from additional supplemental screening, we encourage a full breast clinical evaluation and comprehensive breast cancer risk assessment to guide further decision making. For more information regarding the management of high-risk patients, the following is a link to the [facility] care path https://ccf.Yikuaiqu [email or web address]/ ?[email or web address]. Additionally, a referral to the [facility] Medical Breast Clinic is also appropriate. Interpreting Radiologist: Sury Valdes M.D. Electronically signed on: 08/21/2024 Grader Patrol: LUH Transcribe Date/Time: Aug 20 2024 7:21A Dictated by: SANDRA HOLCOMB, DO This examination was interpreted and the report reviewed and electronically signed by: SURY VALDES MD on Aug 21 2024 9:28AM EST [id number] Normal [facility] CNOVon 06-25-2024 CNOV Office Visit (OBGYWM ) ESTEFANI MISHRA ([id number]) 1980 F Date Time Provider Department 06/25/24 11:00 AM ALLYSON VALLE OBGYWM During your visit today, we recorded the following information about you: Blood pressure Weight Height Last Period 120/64 76.2 kg 1.683 m 05/30/24 Allyson Valle APRN.RESIDENTIAL APPRAISER 06/25/2024 11:40 AM Signed [employer] Elevator Erector offered: Octavio Jara is a 43 year old who presents for an annual gynecologic exam with complaints, irregular bleeding. Menses: cycles every 13-65 days and 2- 5 days of flow. Contraception: none HPV vaccine: No Last Pap: 05/11/2020 normal HPV: 05/10/2020 negative History of abnormal pap: No Last mammogram: 2022normal Sexually active: Yes OB History T2 L2 SAB0 IAB0 Ectopic0 Multiple0 Live Births2 Skip Pitman History LMP: 05/30/2024 (Exact Date), Having periods Age at Menarche: Age at First : Age at Menopause: Skip Pitman History Comments: Sexual Activity: Yes; Male Contraception: None PAST MEDICAL HISTORY Diagnosis Date Adenomatous colon polyp Anemia DURING COLLEGE Female infertility of unspecified origin Female infertility Liver function study, abnormal BENIGN CALCIFICATION OF LIVER Transient hypertension of , unspecified as to episode of care PAST SURGICAL HISTORY Procedure Laterality Date COLONOSCOPY GEN ANES 07/27/2021 EGD 07/27/2021 NONE FAMILY HISTORY Problem Relation Age of Onset Breast Cancer Mother Hypertension Mother other (Gallbladder Disease) Mother Gallbladder Removed Heart Father valve replacement Breast Cancer Maternal Grandmother Aneurysm Maternal Grandfather Heart Paternal Grandmother Cancer Paternal Grandfather Pancreatic Cancer Maternal Uncle Colon Cancer No Family History SOCIAL HISTORY Social History Tobacco Use Smoking status: Never Passive exposure: Never Smokeless tobacco: Never Vaping Use Vaping status: Never Used Substance Use Topics Alcohol use: Yes Comment: Seldom,NOT WHILE Drug use: No REVIEW OF SYSTEMS Abdomen: No abdominal pain, nausea, vomiting, diarrhea, or constipation. No bloating, early satiety, indigestion, or increased flatulence. Bladder: No dysuria, gross hematuria, urinary frequency, urinary urgency, +stress incontinence. Breast: No breast lumps, nipple d/c, overlying skin changes, redness or skin retraction. Allergies and current medication updated:Yes SENSITIVE EXAM: The sensitive examination was discussed with the Patient or Patient's Authorized S Iron Worker. As applicable, any other physician, advance practice provider, medical student, or other health professional student that will be observing or involved in the sensitive examination for educational or training purposes was discussed with the Patient or Authorized S Iron Worker. The Patient or Authorized S Iron Worker has agreed to proceed with the sensitive examination. (Sensitive examination includes inspection and/or palpation of the breasts, pelvis, prostate and anorectal regions). EXAM: BP 120/64 Ht 5' 6.26 (1.68m) Wt 168 lb (76.2kg) LMP 05/30/2024 BMI 26.90 kg/(m2). GENERAL: pleasant, female in no apparent distress HEENT: Normocephalic, atraumatic, mucus membranes moist, and no lesions NECK: Supple, full range of motion, no adenopathy, and thyroid normal DERMATOLOGY: Normal, without lesions, non-icteric, and non-hirsute BREAST: soft, non-tender, symmetric, no dominant mass, normal nipple-areolar complex, no lymphadenopathy, and no nipple discharge CHEST: Normal inspiratory effort ABDOMEN: soft, non-tender, and no masses PELVIC: external genitalia normal, normal Bartholin's glands, urethra, Kenova's glands, no vulvar lesions, no cervical lesions, good vaginal support, physiologic discharge present, normal appearing perineal body and perianal region BIMANUAL: uterus normal size, shape and consistency, no adnexal masses, and non-tender RECTOVAGINAL: deferred. NEURO: alert and oriented x3,exam grossly non-focal EXTREMITIES: normal ASSESSMENT/PLAN: 1) Health maintenance: Pap/HPV up to date. Mammogram ordered. Nutrition, exercise and routine health maintenance exams reviewed. Calcium/Vitamin D supplementation information provided. 2) Contraception: none. Contraceptive options reviewed and information provided. 3) STD screening: Declined STD check. 4) Follow up one year or sooner as needed Allyson Valle APRN.CLIVE Referring Provider: ALLYSON VALLE [[id number]] Allergies As of Date: 06/25/2024 (No Known Allergies) Date Reviewed: 06/25/2024 Reviewed by: Allyson Valle APRN.RESIDENTIAL APPRAISER - Fully Assessed Reason for Visit: Well Woman [[id number]] Primary Visit Diagnosis:Encounter for gynecological examination (general) (routine) without abnormal findings [Z01.419] Other Visit Diagnosis:Encounter for screening mammo (more content not included)... Normal [facility] Basic Metabolic Profile (BMP )on 04-10-2024 BUN/CRE 16.6 RATIO Normal 10-20 [facility] Comment on above: Order Comment: Order Date: 04/07/24 Order Info: 0667-1 - BMP Order Info: 15067-9 - LIPID Performed By: #### L 500.2500, L500.4100 #### [facility] [address] [place], [address] CA,Total 9.0 mg/dL Normal 8.5-10.1 [facility] Comment on above: Order Comment: Order Date: 04/07/24 Order Info: 666-10 - BMP Order Info: - LIPID Performed By: #### L 500.2500, L500.4100 #### [facility] [address] [place], [address] Chloride [Moles/Vol] 107 mmol/L Normal 98-107 [facility] Comment on above: Order Comment: Order Date: 04/07/24 Order Info: 666-10 - BMP Order Info: - LIPID Performed By: #### L 500.2500, L500.4100 #### [facility] [address] [place], [address] CO2 [Moles/Vol] 25.0 mmol/L Normal 21.0-32.0 [facility] Comment on above: Order Comment: Order Date: 04/07/24 Order Info: 666-10 - [facility] Order Info: - LIPID Performed By: #### L 500.2500, L500.4100 #### [facility] [address] [place], [address] Creatinine [Mass/Vol] 0.96 mg/dL Normal 0.55-1.02 [facility] Comment on above: Order Comment: Order Date: 04/07/24 Order Info: 666-10 - BMP Order Info: - LIPID Result Comment: The validity of the calculated GFR GFRAA in patients over 70 years has not been determined. Clinical correlation is essential. Performed By: #### L 500.2500, L500.4100 #### [facility] [address] [place], [address] EST GFR - AA 80 mL/min Normal >60 [facility] Comment on above: Order Comment: Order Date: 04/07/24 Order Info: 666-10 - BMP Order Info: [id number] - LIPID Result Comment: Afri can [place]i GFR Calc Performed By: #### L 500.2500, L500.4100 #### [facility] [address] [place], [address] GAP 7 Normal 5-15 [facility] Comment on above: Order Comment: Order Date: 04/07/24 Order Info: 666-10 - BMP Order Info: [id number] - LIPID Performed By: #### L 500.2500, L500.4100 #### [facility] [address] [place], [address] GFR/1.73 sq M.predicted among non-blacks MDRD (S/P/Bld) [Vol rate/Area] 66 mL/min/{1.73_m2} Normal >60 [facility] Comment on above: Order Comment: Order Date: 04/07/24 Order Info: 666-10 - BMP Order Info: 03809-6 - LIPID Result Comment: Non- GFR Calc Performed By: #### L 500.2500, L500.4100 #### [facility] [address] [place], [address] Glucose [Mass/Vol] 82 mg/dL Normal 74-106 [facility] Comment on above: Order Comment: Order Date: 04/07/24 Order Info: 666-10 - BMP Order Info: [id number] - LIPID Performed By: #### L 500.2500, L500.4100 #### [facility] [address] [place], [address] Potassium [Moles/Vol] 4.0 mmol/L Normal 3.5-5.1 [facility] Comment on above: Order Comment: Order Date: 04/07/24 Order Info: 06- - BMP Order Info: [id number] - LIPID Performed By: #### L 500.2500, L500.4100 #### [facility] [address] [place], [address] Sodium [Moles/Vol] 139 mmol/L Normal 136-145 [facility] Comment on above: Order Comment: Order Date: 04/07/24 Order Info: 666- - BMP Order Info: [id number] - LIPID Performed By: #### L 500.2500, L500.4100 #### [facility] [address] [place], [place], [id number] Urea nitrogen [Mass/Vol] 16 mg/dL Normal 7-18 [facility] Comment on above: Order Comment: Order Date: 04/07/24 Order Info: 666-10 - BMP Order Info: [id number] - LIPID Performed By: #### L 500.2500, L500.4100 #### [facility] [address] [place], [address] Hepatitis C Antibodyon 04-10 Hepatitis C AB Non-Reactive Normal Nonreactive [facility] Comment on above: Result Comment: Non Reactive: < 0.8 Equivocal: >/= 0.8 to < 1.0 Reactive: >/= 1.[address] [facility] requires that a reactive/equivocal HCV antibody result be sent out for confirmation. HCV Quant by PCR testing. Performed By: #### L 3890.6300 #### [facility] [address] [place], [place], [id number] Lipid Profileon 04-10-2024 Cholesterol [Mass/Vol] 169 mg/dL Normal 200 [facility] Comment on above: Order Comment: Order Date: 04/07/24 Order Info: 06 - [facility] Order Info: [id number] - LIPID Result Comment: <200 mg/dL Desirable 200-240 mg/dL Borderline >240 mg/dL High Risk Performed By: #### L 500.2500, L500.4100 #### [facility] [address] [place], [place], [id number] Cholesterol in HDL [Mass/Vol] 73 mg/dL Normal [facility] Comment on above: Order Comment: Order Date: 04/07/24 Order Info: 06 - BMP Order Info: [id number] - LIPID Result Comment: The drugs N-Acetylcysteine and Metamizole may falsely depress this assay. Reference Range HDL <40 mg/dL Low HDL Cholesterol HDL >or= 60 mg/dL High HDL Cholesterol Performed By: #### L 500.2500, L500.4100 #### [facility] [address] [place], [address] Cholesterol in LDL [Mass/Vol] 83 mg/dL Normal 0-130 [facility] Comment on above: Order Comment: Order Date: 04/07/24 Order Info: 0667-1 - BMP Order Info: [id number] - LIPID Performed By: #### L 500.2500, L500.4100 #### [facility] [address] [place], [address] Cholesterol in VLDL [Mass/Vol] 13 mg/dL Normal 5-40 [facility] Comment on above: Order Comment: Order Date: 04/07/24 Order Info: 0667-1 - BMP Order Info: [id number] - LIPID Performed By: #### L 500.2500, L500.4100 #### [facility] [address] [place], [address] Triglyceride [Mass/Vol] 65 mg/dL Normal [facility] Comment on above: Order Comment: Order Date: 04/07/24 Order Info: 0667-1 - [facility] Order Info: [id number] - LIPID Result Comment: The drugs N-Acetylcysteine and Metamizole may falsely depress this assay. Serum Triglycerides Reference Interval Normal <150 mg/dL Borderline high 150 - 199 mg/dL High 200 - 499 mg/dL Very High > or = 500 mg/dL Performed By: #### L 500.2500, L500.4100 #### [facility] [address] [place], [address] XR CHEST 2V FRONTAL/LATon [facility] XR Chest PA and Lateralon IMPRESSION: 1. No evidence of acute cardiopulmonary disease. 2. Persistence of calcified hepatic mass in the right upper quadrant. Grader Patrol: DESIREE Transcribe Date/Time: Aug 16 2022 7:48P Dictated by : PURA BABB MD This examination was interpreted and the report reviewed and electronically signed by: PURA BABB MD on Aug 16 2022 7:51PM [facility] DIVISION OF RADIOLOGY * * *Final Report* * * DATE OF EXAM: Aug 16 2022 7:16PM WOX 5291 - XR CHEST 2V FRONTAL/LAT / PROCEDURE REASON: Acute cough * * * * Physician Interpretation * * * * EXAMINATION: CHEST RADIOGRAPH (2 VIEW FRONTAL & LATERAL) CLINICAL HISTORY: Acute cough MQ: XC2_6 EXAM DATE/TIME: 08/16/2022 7:16 PM COMPARISON: CT abdomen pelvis dated 12/21/2021 RESULT: Lines, tubes, and devices: None. Lungs and pleura: No consolidation. No lung mass. No pleural effusion. No pneumothorax. Cardiomediastinal silhouette: Normal cardiomediastinal silhouette. Bones and soft tissues: Calcified mass in the right upper quadrant compatible with previously seen calcified hepatic mass by CT. DIVISION OF RADIOLOGY Provider, [facility] - 08/16/2022 * * *Final Report* * * DATE OF EXAM: Aug 16 2022 7:16PM WOX 5291 - XR CHEST 2V FRONTAL/LAT / PROCEDURE REASON: Acute cough * * * * Physician Interpretation * * * * EXAMINATION: CHEST RADIOGRAPH (2 VIEW FRONTAL & LATERAL) CLINICAL HISTORY: Acute cough MQ: XC2_6 EXAM DATE/TIME: 08/16/2022 7:16 PM COMPARISON: CT abdomen pelvis dated 12/21/2021 RESULT: Lines, tubes, and devices: None. Lungs and pleura: No consolidation. No lung mass. No pleural effusion. No pneumothorax. Cardiomediastinal silhouette: Normal cardiomediastinal silhouette. Bones and soft tissues: Calcified mass in the right upper quadrant compatible with previously seen calcified hepatic mass by CT. IMPRESSION IMPRESSION: 1. No evidence of acute cardiopulmonary disease. 2. Persistence of calcified hepatic mass in the right upper quadrant. Grader Patrol: PSCB Transcribe Date/Time: Aug 16 2022 7:48P Dictated by : PURA BABB MD This examination was interpreted and the report reviewed and electronically signed by: PURA BABB MD on Aug 16 2022 7:51PM EST [facility] Radiology Study observation (narrative) [facility] XR Chest PA and LateralOrder ed By: [facility] Provider on 08-16-2022 [facility] MRI PANC/BLAYNE WO/W IVCONon Radiology Result ACTIONABLE Abnormal [facility] PEDRO SCREENING W TOMOon 07-13 [facility] MRI LIVER WO/W IVCONon 01-11 Radiology Result ACTIONABLE Abnormal [facility] Vital Signs Date Time Vital Sign Value Performing Clinician Pedro Pablo mari 12-07-2024 13:03-0500 Body height 172.7 cm Lina Rainey APRN.CNP Work Phone: [facility] 12-07-2024 13:03-0500 Body mass index (BMI) [Ratio] 25.85 kg/m2 Lina Rainey APRN.CNP Work Phone: [facility] 12-07-2024 13:03-0500 Body temperature 98.1 [degF] Lina Rainey APRN.CNP Work Phone: [facility] 12-07-2024 13:03-0500 Body weight 77.11 kg Lina Rainey APRN.CNP Work Phone: [facility] 12-07-2024 13:03-0500 Diastolic blood pressure 70 mm[Hg] Lina Rainey APRN.CNP Work Phone: [facility] 12-07-2024 13:03-0500 Heart rate 60 /min Lina Rainey APRN.CNP Work Phone: [facility] 12-07-2024 13:03-0500 SaO2% (BldA) [Mass fraction] 98 % Lina Rainey APRN.CNP Work Phone: [facility] 12-07-2024 13:03-0500 Systolic blood pressure 110 mm[Hg] Lina Rainey APRN.RESIDENTIAL APPRAISER Work Phone: [facility] 11-03-2024 08:31-0500 Body height 167.6 cm Opal Smith MD Work Phone: [facility] 11-03-2024 08:31-0500 Body mass index (BMI) [Ratio] 27.12 kg/m2 Opal Smith MD Work Phone: [facility] 11-03-2024 08:31-0500 Body weight 76.2 kg Opal Smith MD Work Phone: [facility] 11-03-2024 08:31-0500 Diastolic blood pressure 76 mm[Hg] Opal Smith MD Work Phone: [facility] 11-03-2024 08:31-0500 Systolic blood pressure 118 mm[Hg] Opal Smith MD Work Phone: [facility] 09-22-2024 11:13-0500 Body height 168.9 cm Lina Rainey APRN.RESIDENTIAL APPRAISER Work Phone: [facility] 09-22-2024 11:13-0500 Body mass index (BMI) [Ratio] 27.03 kg/m2 Lina Rainey APRN.RESIDENTIAL APPRAISER Work Phone: [facility] 09-22-2024 11:13-0500 Body temperature 98.2 [degF] Lina Rainey APRN.RESIDENTIAL APPRAISER Work Phone: [facility] 09-22-2024 11:13-0500 Body weight 77.11 kg Lina Rainey APRN.RESIDENTIAL APPRAISER Work Phone: [facility] 09-22-2024 11:13-0500 Diastolic blood pressure 78 mm[Hg] Lina Rainey APRN.RESIDENTIAL APPRAISER Work Phone: [facility] 09-22-2024 11:13-0500 Heart rate 62 /min Lina Rainey APRN.RESIDENTIAL APPRAISER Work Phone: [facility] 09-22-2024 11:13-0500 SaO2% (BldA) [Mass fraction] 100 % Lina Rainey APRN.RESIDENTIAL APPRAISER Work Phone: [facility] 09-22-2024 11:13-0500 Systolic blood pressure 106 mm[Hg] Lina Rainey APRN.RESIDENTIAL APPRAISER Work Phone: [facility] 09-08-2024 16:00-0500 Body mass index (BMI) [Ratio] 28.46 kg/m2 Davida Godfrey TYING MACHINE OPERATOR.RESIDENTIAL APPRAISER Work Phone: [facility] 09-08-2024 16:00-0500 Body temperature 97.81 [degF] Davida Godfrey TYING MACHINE OPERATOR.RESIDENTIAL APPRAISER Work Phone: [facility] 09-08-2024 16:00-0500 Body weight 80.6 kg Davida Godfrey TYING MACHINE OPERATOR.RESIDENTIAL APPRAISER Work Phone: [facility] 09-08-2024 16:00-0500 Diastolic blood pressure 88 mm[Hg] Davida Godfrey TYING MACHINE OPERATOR.RESIDENTIAL APPRAISER Work Phone: [facility] 09-08-2024 16:00-0500 Heart rate 60 /min Davida Godfrey TYING MACHINE OPERATOR.RESIDENTIAL APPRAISER Work Phone: [facility] 09-08-2024 16:00-0500 Respiratory rate 16 /min Davida Godfrey TYING MACHINE OPERATOR.RESIDENTIAL APPRAISER Work Phone: [facility] 09-08-2024 16:00-0500 SaO2% (BldA) [Mass fraction] 99 % Davida Godfrey TYING MACHINE OPERATOR.RESIDENTIAL APPRAISER Work Phone: [facility] 09-08-2024 16:00-0500 Systolic blood pressure 136 mm[Hg] Davida Godfrey TYING MACHINE OPERATOR.RESIDENTIAL APPRAISER Work Phone: [facility] 08-23-2024 10:15-0500 Body mass index (BMI) [Ratio] 26.87 kg/m2 Felicita Apodaca-Joo TYING MACHINE OPERATOR.RESIDENTIAL APPRAISER Work Phone: [facility] 08-23-2024 10:15-0500 Body temperature 98.1 [degF] Felicita Tothler-Wood TYING MACHINE OPERATOR.RESIDENTIAL APPRAISER Work Phone: [facility] 08-23-2024 10:15-0500 Body weight 76.1 kg Felicita Apodaca-Joo TYING MACHINE OPERATOR.RESIDENTIAL APPRAISER Work Phone: [facility] 08-23-2024 10:15-0500 Diastolic blood pressure 93 mm[Hg] Felicita Praisler-Wood TYING MACHINE OPERATOR.RESIDENTIAL APPRAISER Work Phone: [facility] 08-23-2024 10:15-0500 Heart rate 81 /min Felicita Praisler-Wood TYING MACHINE OPERATOR.RESIDENTIAL APPRAISER Work Phone: [facility] 08-23-2024 10:15-0500 Respiratory rate 16 /min Felicita Praisler-Wood TYING MACHINE OPERATOR.RESIDENTIAL APPRAISER Work Phone: [facility] 08-23-2024 10:15-0500 SaO2% (BldA) [Mass fraction] 98 % Felicita Praisler-Wood TYING MACHINE OPERATOR.RESIDENTIAL APPRAISER Work Phone: [facility] 08-23-2024 10:15-0500 Systolic blood pressure 130 mm[Hg] Felicita Praisler-Wood TYING MACHINE OPERATOR.RESIDENTIAL APPRAISER Work Phone: [facility] 06-25-2024 10:57-0400 Body height 168.3 cm Allyson Colora TYING MACHINE OPERATOR.RESIDENTIAL APPRAISER Work Phone: [facility] 06-25-2024 10:57-0400 Body mass index (BMI) [Ratio] 26.9 kg/m2 Allyson Colora TYING MACHINE OPERATOR.RESIDENTIAL APPRAISER Work Phone: [facility] 06-25-2024 10:57-0400 Body weight 76.2 kg Allyson Colora TYING MACHINE OPERATOR.RESIDENTIAL APPRAISER Work Phone: [facility] 06-25-2024 10:57-0400 Diastolic blood pressure 64 mm[Hg] Allyson Tori TYING MACHINE OPERATOR.RESIDENTIAL APPRAISER Work Phone: [facility] 06-25-2024 10:57-0400 Systolic blood pressure 120 mm[Hg] Allyson Tori TYING MACHINE OPERATOR.RESIDENTIAL APPRAISER Work Phone: [facility] 08-16-2022 18:56-0500 Body temperature 98.2 [degF] Davida Godfrey TYING MACHINE OPERATOR.RESIDENTIAL APPRAISER Work Phone: [facility] 08-16-2022 18:56-0500 Body weight 75.57 kg Davida Godfrey TYING MACHINE OPERATOR.RESIDENTIAL APPRAISER Work Phone: [facility] 08-16-2022 18:56-0500 Diastolic blood pressure 78 mm[Hg] Davida Godfrey TYING MACHINE OPERATOR.RESIDENTIAL APPRAISER Work Phone: [facility] 08-16-2022 18:56-0500 Heart rate 85 /min Davida Godfrey TYING MACHINE OPERATOR.RESIDENTIAL APPRAISER Work Phone: [facility] 08-16-2022 18:56-0500 Respiratory rate 18 /min Davida Godfrey TYING MACHINE OPERATOR.RESIDENTIAL APPRAISER Work Phone: [facility] 08-16-2022 18:56-0500 SaO2% (BldA) [Mass fraction] 98 % Davida Godfrey TYING MACHINE OPERATOR.RESIDENTIAL APPRAISER Work Phone: [facility] 08-16-2022 18:56-0500 Systolic blood pressure 124 mm[Hg] Davida Godfrey TYING MACHINE OPERATOR.RESIDENTIAL APPRAISER Work Phone: [facility] 06-15-2022 08:10-0400 Body height 167.6 cm Allyson Colora TYING MACHINE OPERATOR.RESIDENTIAL APPRAISER Work Phone: [facility] 06-15-2022 08:10-0400 Body weight 74.57 kg Allyson Colora TYING MACHINE OPERATOR.RESIDENTIAL APPRAISER Work Phone: [facility] 06-15-2022 08:10-0400 Diastolic blood pressure 68 mm[Hg] Allyson Tori TYING MACHINE OPERATOR.RESIDENTIAL APPRAISER Work Phone: [facility] 06-15-2022 08:10-0400 Systolic blood pressure 114 mm[Hg] Allyson Colora TYING MACHINE OPERATOR.RESIDENTIAL APPRAISER Work Phone: [facility] Encounters Encounter Date Encounter Type Care Provider Facility Start: 03-15-2025 End: 03-15-2025 Patient encounter procedure Meghan March TYING MACHINE OPERATOR.RESIDENTIAL APPRAISER Work Phone: Dermatology Comment on above: Lentigines (Primary Dx); Angioma of skin; Multiple benign nevi; Seborrheic keratoses Start: 03-15-2025 End: 03-15-2025 ambulatory MEGHAN March Facility:[facility] Start: 02-04-2025 End: 02-04-2025 ambulatory Gio Peralta PT Work Phone: [facility] Comment on above: Right elbow pain (Pr imary Dx) Start: 01-18-2025 End: 01-18-2025 ambulatory Gio Peralta PT Work Phone: [facility] Comment on above: Right elbow pain (Pr imary Dx) Start: 01-11-2025 End: 01-11-2025 ambulatory Davida Sánchez PT [facility] Comment on above: Right elbow pain (Pr imary Dx) Start: 01-04-2025 End: 01-04-2025 ambulatory Gio Peralta PT Work Phone: [facility] Comment on above: Right elbow pain (Pr imary Dx) Start: 12-29-2024 End: 12-29-2024 ambulatory Gio Peralta PT Work Phone: [facility] Comment on above: Right elbow pain (Pr imary Dx) Start: 12-18-2024 End: 12-18-2024 ambulatory Gio Prealta PT Work Phone: [facility] Comment on above: Right elbow pain Start: 12-07-2024 End: 12-07-2024 Patient encounter procedure Lina Rainey APRN.RESIDENTIAL APPRAISER Work Phone: [facility] Comment on above: Right elbow pain (Pr imary Dx) Start: 12-07-2024 End: 12-07-2024 ambulatory LINA RAINEY Facility:[facility] Start: 11-10-2024 End: 11-10-2024 ambulatory Lina Rainey TYING MACHINE OPERATOR.RESIDENTIAL APPRAISER Work Phone: [facility] Comment on above: Elbow pain Start: 11-03-2024 End: 11-03-2024 Office outpatient new 45 minutes Opal Smith MD Work Phone: [facility] Comment on above: Pancreatic cyst (Frida pepe Dx) Start: 11-03-2024 End: 11-03-2024 ambulatory OPAL SMITH Facility:[facility] Start: 11-02-2024 End: 11-02-2024 Patient encounter procedure Tai Moore Work Phone: Podiatry Comment on above: Neuroma of foot Start: 11-02-2024 End: 11-02-2024 ambulatory TAI MOORE Facility:[facility] Start: 11-02-2024 End: 11-02-2024 Subsequent hospital visit by physician Xr [facility] Seth Shannon Work Phone: Radiology Comment on above: Pain [R52] Start: 10-20-2024 End: 10-20-2024 ambulatory LINA RAINEY Facility:[facility] Start: 10-16-2024 End: 10-16-2024 Telephone encounter Lina Rainey TYING MACHINE OPERATOR.RESIDENTIAL APPRAISER Work Phone: [facility] Comment on above: Lab Orders Start: 10-13-2024 End: 10-13-2024 Telephone encounter Lina Rainey TYING MACHINE OPERATOR.RESIDENTIAL APPRAISER Work Phone: [facility] Comment on above: Results (MRI Pancrea s) Start: 10-09-2024 End: 10-09-2024 ambulatory LINA RAINEY Facility:[facility] Start: 10-09-2024 End: 10-09-2024 Subsequent hospital visit by physician Mri Radio [facility] (I-Stat/1.5t) Work Phone: Radiology Comment on above: Liver mass, right lo be [R16.0] Start: 09-24-2024 End: 09-25-2024 Telephone encounter Lina Rainey TYING MACHINE OPERATOR.RESIDENTIAL APPRAISER Work Phone: [facility] Comment on above: Results (Labs) Start: 09-24-2024 End: 09-25-2024 ambulatory Lina Rainey TYING MACHINE OPERATOR.RESIDENTIAL APPRAISER Work Phone: [facility] Comment on above: Updates to visit fro this week Start: 09-22-2024 End: 09-22-2024 Patient encounter procedure Lina Rainey TYING MACHINE OPERATOR.RESIDENTIAL APPRAISER Work Phone: [facility] Comment on above: Calcified liver mass , right lobe (Primary Dx); Pancreatic mass; Foot pain, right; Neuroma of foot; Screening for lipid disorders; Skin exam for malignant neoplasm; Family history of skin cancer; Encounter for immunization Start: 09-22-2024 End: 09-22-2024 ambulatory [facility] Facility:[facility] Start: 09-08-2024 End: 09-08-2024 Subsequent hospital visit by physician Xr [facility] Seth Work Phone: Radiology Comment on above: Acute cough [R05.1] Start: 09-08-2024 End: 09-08-2024 [facility] Facility:[facility] Start: 09-08-2024 End: 09-08-2024 Patient encounter procedure Davida Godfrey TYING MACHINE OPERATOR.RESIDENTIAL APPRAISER Work Phone: [facility] Comment on above: Acute cough (Primary Dx); Rhinosinusitis Start: 08-23-2024 End: 08-23-2024 [facility] Facility:[facility] Start: 08-23-2024 End: 08-23-2024 Patient encounter procedure Felicita Figueroa APRN.CLIVE Work Phone: [facility] Comment on above: Viral URI with cough (Primary Dx) Start: 08-20-2024 End: 08-20-2024 [facility] Facility:[facility] Start: 08-20-2024 End: 08-20-2024 Subsequent hospital visit by physician Screen Mammo [facility] Comment on above: Encounter for screen ing mammogram for breast cancer [Z12.31] Start: 06-25-2024 End: 06-25-2024 [facility] Start: 06-25-2024 End: 06-25-2024 Patient encounter procedure Allyson Valle TYING MACHINE OPERATOR.RESIDENTIAL APPRAISER Work Phone: OB/Gynecology Comment on above: Encounter for gyneco logical examination (general) (routine) without abnormal findings (Primary Dx); Encounter for screening mammogram for breast cancer Start: 06-25-2024 End: 06-25-2024 Patient encounter status Allyson Valle APRN.RESIDENTIAL APPRAISER Work Phone: [facility] Start: 04-10-2024 End: 04-10-2024 ambulatory Vy Villa NP Facility:[facility] Start: 08-20-2023 Documentation procedure Mammography Coordinator [facility] Start: 08-20-2023 Letter encounter Mammography Coordinator [facility] Department Start: 08-19-2023 End: 08-19-2023 Subsequent hospital visit by physician Screen Mammo [facility] Comment on above: Encounter for screen ing mammogram for malignant neoplasm of breast [Z12.31] Start: 06-14-2023 End: 06-14-2023 Subsequent hospital visit by physician Screen Mammo [facility] Comment on above: Encounter for screen ing mammogram for malignant neoplasm of breast [Z12.31] Start: 05-14-2023 Get Medical Advice Allyson rosado APRN.CNP Work Phone: OB/Gynecology Comment on above: Mammogram order need ed Start: 08-16-2022 End: 08-16-2022 Subsequent hospital visit by physician Xr [facility] Work Phone: Radiology Comment on above: Acute cough [R05.1] Start: 08-16-2022 End: 08-16-2022 Patient encounter procedure Davida Godfrey APRN.CNP Work Phone: [facility] Comment on above: Acute cough (Primary Dx); URI, acute Start: 08-07-2022 End: 08-07-2022 Subsequent hospital visit by physician Mri Radio [facility] (I-Stat/1.5t) Work Phone: Radiology Comment on above: Pancreatic cyst [K86 .2] Start: 07-13-2022 Documentation procedure Mammography Coordinator [facility] Start: 07-13-2022 Letter encounter Mammography Coordinator [facility] Department Start: 07-13-2022 End: 07-13-2022 Subsequent hospital visit by physician Screen Mammo [facility] Comment on above: Encounter for screen ing mammogram for malignant neoplasm of breast [Z12.31] Start: 06-15-2022 End: 06-15-2022 Patient encounter procedure Allysonkiera Valle APRN.CNP Work Phone: OB/Gynecology Comment on above: Encounter for gyneco logical examination without abnormal finding (Primary Dx); Encounter for screening mammogram for breast cancer; Encounter for screening mammogram for malignant neoplasm of breast Start: 06-15-2022 End: 06-15-2022 Patient encounter status Allyson Laocalf JEN.CLIVE Work Phone: OB/Gynecology Start: 01-16-2022 Telephone encounter Gisella tony PA-C Work Phone: Gastroenterology [facility] Comment on above: Results Start: 01-11-2022 ambulatory Gisella Godwin PA-C [facility] Comment on above: Question regarding M RI LIVER WO/W IVCON Start: 01-11-2022 End: 01-11-2022 Subsequent hospital visit by physician Mri Radio [facility] (I-Stat/1.5t) Work Phone: Radiology Comment on above: Liver lesion [K76.9] Start: 07-29-2012 End: 08-29-2015 Patient requested procedure Allyson Valle APRN.CNP Work Phone: [facility] Procedures Date Procedure Procedure Detail Performing Clinician Start: 09-24-2024 Lipid 1996 panel - S yolande or Plasma Lina Rainey APRN.CLIVE Work Phone: Start: 09-08-2024 Radiologic exam ches t 2 views Sisi Barrios TYING MACHINE OPERATOR.CLIVE Work Phone: Start: 08-16-2022 Radiologic exam ches t 2 views Davida Godfrey TYING MACHINE OPERATOR.CLIVE Work Phone: Start: 08-07-2022 Mri abdomen w/o & w/contrast material Gisella Godwin PA-C Work Phone: Start: 07-13-2022 PEDRO SCREENING W LAYLA Renata Valle APRN.CNP Work Phone: Start: 07-13-2022 Mammography Screen [facility] Start: 01-11-2022 Mri abdomen w/o & w/contrast material Gisella Godwin PA-C Work Phone: Start: 07-27-2021 Colonoscopy Mri (I-Sta t/1.5t) Work Phone: Start: 05-15-2021 Mammography Mri (I-Sta t/1.5t) Work Phone: Start: 04-23-2012 Lipid 1996 panel - S yolande or Plasma Allyson Tori TYING MACHINE OPERATOR.RESIDENTIAL APPRAISER Work Phone: Plan of Treatment Date Care Activity Detail Author Start: 04-07-2034 Urine microalbumin profile DTaP,Tdap,Td Vaccine (3 - Td or Tdap) [facility] Start: 09-24-2029 Lipid panel Lipid Screening [facility] Start: 09-24-2027 Diabetes Screening Diabetes Screenin g [facility] Start: 11-07-2026 MR Biliary ducts and Pancreatic duct WO and W contrast IV MRI PANC/BLAYNE WO/W IVCON Radiology Routine Pancreatic cyst Expected: 11/07/2026 (Approximate) [facility] Work Phone: Comment on above: Expected: 11/07/2026 (Approximate) Start: 07-27-2026 Colonoscopy COLONOSCOPY [facility] Start: 07-27-2026 COLORECTAL CANCER SCREENING COLORECTAL CANCER SCREENING [facility] Start: 07-27-2026 Screening for malign ant neoplasm of colon [facility] Start: 09-22-2025 Anxiety Screening Anxiety Screening [facility] Comment on above: Postponed from 10/02 (Declined at this time) Start: 09-22-2025 Covid-19 Vaccine () Covid-19 Vaccine () [facility] Comment on above: Postponed from 06/07 (Declined at this time) Start: 08-20-2025 Screening for malign ant neoplasm of breast Mammogram Screening [facility] Start: 05-06-2025 HPV TESTING HPV TESTING [facility] Start: 05-06-2025 PAP TESTING PAP TESTING [facility] Start: 05-06-2025 Screening for malign ant neoplasm of cervix Cervical Cancer Screening [facility] Start: 03-15-2025 End: 03-15-2025 Patient encounter procedure 03/15/2025 2:45 PM EDT Office Visit Dermatology [address] [facility] [place] [address] March, Meghan Cardenas APRN.RESIDENTIAL APPRAISER [address] [facility] [place] [address] skin check Dermatology Comment on above: skin check Start: 02-04-2025 End: 02-04-2025 ambulatory 02/04/2025 10:45 AM EDT OT/PT/Speech Visit [facility] [address] [place] [address] Gio Peralta, PT [address] [place] [address] ELBOW PAIN [facility] Comment on above: ELBOW PAIN Start: 01-18-2025 End: 01-18-2025 ambulatory 01/18/2025 7:45 AM EDT OT/PT/Speech Visit [facility] [address] [place] [address] Gio Peralta, PT [address] [place] [address] Elbow pain [facility] Comment on above: Elbow pain Start: 01-11-2025 End: 01-11-2025 ambulatory 01/11/2025 7:45 AM EDT OT/PT/Speech Visit [facility] [address] [place] [address] Gio Peralta, PT [address] [facility] [place] [address] Elbow pain [facility] Comment on above: Elbow pain Start: 01-04-2025 End: 01-04-2025 ambulatory 01/04/2025 7:45 AM EDT OT/PT/Speech Visit [facility] [address] [place] [address] Gio Peralta, PT [address] [place] [address] Elbow pain [facility] Comment on above: Elbow pain Start: 01-01-2025 End: 01-01-2025 Patient encounter procedure 01/01/2025 11:40 AM EDT Office Visit [facility] [address] [place] [address] Lina Rainey APRN.RESIDENTIAL APPRAISER [address] [place] [address] Elbow pain [facility] Comment on above: Elbow pain Start: 12-21-2024 Diabetes Screening Diabetes Screenin g [facility] Start: 12-07-2024 Depression Screening Depression Scre ening [facility] Comment on above: Postponed from 10/02 (Declined at this time) Start: 11-03-2024 End: 11-03-2024 Patient encounter procedure 11/03/2024 8:30 AM EST Office Visit [facility] [address] [place] [address] [address] [place], [place] [id number] Opal Smith MD [address] [place], [place] [id number] New pt pancreatic cyst [facility] Comment on above: New pt pancreatic cy st Start: 11-02-2024 End: 11-02-2024 Patient encounter procedure 11/02/2024 1:45 PM EST Office Visit Podiatry [address] [place], [place] [id number] Tai Moore [address] [address] Foot pain, left [M79.671] 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] Podiatry Comment on above: Foot pain, left [M79 .671] 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] Start: 10-20-2024 End: 10-20-2024 ambulatory 10/20/2024 7:45 AM EST Results [facility] [address] [place] [address] [facility] Start: 10-19-2024 End: 10-19-2024 Patient encounter procedure Radiology Comment on above: Foot pain, left [M79 .671] 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] Start: 10-13-2024 End: 05-11-2025 CBC W Auto Differential panel - Blood COMPLETE BLOOD COUNT AND DIFFERENTIAL Lab Routine Anemia, unspecified type Expected: 10/13/2024, Expires: 05/11/2025 [facility] Work Phone: Comment on above: Expected: 10/13/2024 , Expires: 05/11/2025 Start: 10-13-2024 End: 05-11-2025 Ferritin [Mass/volume] in Serum or Plasma FERRITIN Lab Routine Anemia, unspecified type Expected: 10/13/2024, Expires: 05/11/2025 [facility] Comment on above: Expected: 10/13/2024 , Expires: 05/11/2025 Start: 10-13-2024 End: 05-11-2025 Iron and Iron binding capacity panel - Serum or Plasma IRON AND TIBC Lab Routine Anemia, unspecified type Expected: 10/13/2024, Expires: 05/11/2025 [facility] Comment on above: Expected: 10/13/2024 , Expires: 05/11/2025 Start: 10-09-2024 End: 10-09-2024 Patient encounter procedure 10/09/2024 8:30 AM EST Appointment Radiology [address] [place] [address] MRI PANC/BLAYNE WO/W IVCON Radiology Comment on above: MRI PANC/BLAYNE WO/W IV CON Start: 09-25-2024 End: 09-25-2024 ambulatory 09/25/2024 11:30 AM EST Results [facility] [address] [place] [address] [place] [facility] Start: 09-22-2024 End: 04-20-2025 CBC panel - Blood by Automated count COMPLETE BLOOD COUNT Lab Routine Calcified liver mass, right lobe Pancreatic mass Expected: 09/22/2024, Expires: 04/20/2025 [facility] Comment on above: Expected: 09/22/2024 , Expires: 04/20/2025 Start: 09-22-2024 End: 04-20-2025 Comprehensive metabolic 2000 panel - Serum or Plasma COMPREHENSIVE METABOLIC PANEL Lab Routine Calcified liver mass, right lobe Pancreatic mass Expected: 09/22/2024, Expires: 04/20/2025 [facility] Comment on above: Expected: 09/22/2024 , Expires: 04/20/2025 Start: 09-22-2024 End: 04-20-2025 Lipase [Enzymatic activity/volume] in Serum or Plasma LIPASE Lab Routine Calcified liver mass, right lobe Pancreatic mass Expected: 09/22/2024, Expires: 04/20/2025 [facility] Comment on above: Expected: 09/22/2024 , Expires: 04/20/2025 Start: 09-22-2024 End: 04-20-2025 Lipid 1996 panel - Serum or Plasma LIPID PANEL BASIC Lab Routine Screening for lipid disorders Expected: 09/22/2024, Expires: 04/20/2025 [facility] Comment on above: Expected: 09/22/2024 , Expires: 04/20/2025 Start: 09-22-2024 End: 09-22-2024 Patient encounter procedure 09/22/2024 11:20 AM EST Office Visit [facility] [address] [place], [place] [phone] Lina Rainey, TYING MACHINE OPERATOR.[facility] [address] [place] [address] est care [facility] Comment on above: est care Start: 08-20-2024 End: 08-20-2024 Patient encounter procedure 08/20/2024 7:30 AM EST Appointment Mammogram [address] [place], [place] [address] screening mamm Mammogram Comment on above: screening mamm Start: 08-19-2024 Mammography Mammogram Screening [facility] Start: 08-19-2024 Screening for malign ant neoplasm of breast Mammogram Screening [facility] Start: 06-07-2024 Covid-19 Vaccine () Covid-19 Vaccine () [facility] Start: 06-07-2024 Covid-19 Vaccine () Covid-19 Vaccine () [facility] Start: 06-07-2024 Influenza vaccination Influenza Vacc ine (#1) [facility] Start: 2023 Cologuard (FIT-DNA) Cologuard (FIT-D NA) [facility] Start: [address] Colonography [facility] Start: 2023 Fecal Occult Blood Fecal Occult Bloo d [facility] Start: 2023 Lipid panel Lipid Screening [facility] Start: 2023 Screening for malign ant neoplasm of colon [facility] Start: 2023 Sigmoidoscopy Sigmoidoscopy [facility] Start: 07-13-2023 Mammography [facility] Start: 06-07-2023 Covid-19 Vaccine () Covid-19 Vaccine () [facility] Start: 06-07-2023 Influenza vaccination C [facility] Start: 01-20-2023 Urine microalbumin profile [facility] Start: 10-07-2022 DEPRESSION ASSESSMENT DEPRESSION ASS ESSMENT [facility] Start: 08-16-2022 End: 08-30-2022 Influenza virus A and B RNA and SARS-CoV-2 (COVID-19) N gene panel - Respiratory specimen by MIRIAM with probe detection COVID WITH FLUA+B, ROUTINE Microbiology Routine Acute cough Expected: 08/16/2022, Expires: 08/30/2022 [facility] Work Phone: Comment on above: Expected: 08/16/2022 , Expires: 08/30/2022 Start: 07-18-2022 End: 02-15-2023 Mri abdomen w/o & w/contrast material MRI PANC/BLAYNE WO/W IVCON Radiology Routine Pancreatic cyst Expected: 07/18/2022, Expires: 02/15/2023 [facility] Work Phone: Comment on above: Expected: 07/18/2022 , Expires: 02/15/2023 Start: 06-07-2022 Influenza vaccination INFLUENZA (#1) [facility] Start: 05-15-2022 Mammography MAMMOGRAM [facility] Start: 01-16-2022 End: 03-18-2022 CBC W Auto Differential panel - Blood CBC + DIFF Lab Routine Liver lesion Expected: 01/16/2022, Expires: 03/18/2022 [facility] Work Phone: Comment on above: Expected: 01/16/2022 , Expires: 03/18/2022 Start: 01-16-2022 End: 03-18-2022 PT panel - Platelet poor plasma by Coagulation assay PROTHROMBIN TIME/PT Lab Routine Liver lesion Expected: 01/16/2022, Expires: 03/18/2022 [facility] Work Phone: Comment on above: Expected: 01/16/2022 , Expires: 03/18/2022 Start: 10-07-2021 DEPRESSION ASSESSMENT DEPRESSION ASS ESSMENT [facility] Start: 08-02-2021 COVID-19 VACCINE (3 - Booster for Moderna series) COVID-19 VACCINE (3 - Booster for Moderna series) [facility] Start: 04-27-2021 COVID-19 VACCINE (3 - Booster for Moderna series) COVID-19 VACCINE (3 - Booster for Moderna series) [facility] Start: 04-27-2021 COVID-19 VACCINE (3 - Moderna series) COVID-19 VACCINE (3 - Moderna series) [facility] Start: 1997 Hepatitis B Vaccine (1 of 3 - 19+ 3-dose series) Hepatitis B Vaccine (1 of 3 - 19+ 3-dose series) [facility] Start: 1996 Anxiety Screening Anxiety Screening [facility] Start: 1996 Depression Screening Depression Scre ening [facility] Start: 1996 HEPATITIS C SCREENING HEPATITIS C [facility] Start: 1996 Hepatitis C screening Hepatitis C [facility] Start: 1990 Adult depression screening assessment DEPRESSION SCREENING [facility] Start: 1978 HEPATITIS B (1 of 3 - 3-dose series) HEPATITIS B (1 of 3 - 3-dose series) [facility] Start: 1978 Hepatitis B Vaccine (1 of 3 - 3-dose series) Hepatitis B Vaccine (1 of 3 - 3-dose series) [facility] Biopsy liver needle percutaneous IMAGING GUIDED BIOPSY LIVER Radiology Routine Liver lesion Ordered: 01/16/2022 [facility] Work Phone: Comment on above: Ordered: 01/16/2022 End: 07-25-2025 DBT Breast - bilateral screening PEDRO SCREENING W LAYLA Radiology Routine Encounter for screening mammogram for breast cancer 1 Occurrences starting 06/25/2024 until 07/25/2025 [facility] Work Phone: Comment on above: 1 Occurrences starti ng 06/25/2024 until 07/25/2025 DBT Breast - bilater al screening PEDRO SCREENING W LAYLA Radiology Routine Encounter for screening mammogram for breast cancer 08/20/2024 8:33 AM EST [facility] Work Phone: End: 07-15-2023 PEDRO SCREENING W LAYLA PEDRO SCREENING W LAYLA Radiology Routine Encounter for screening mammogram for malignant neoplasm of breast 1 Occurrences starting 06/15/2022 until 07/15/2023 [facility] Work Phone: Comment on above: 1 Occurrences starti ng 06/15/2022 until 07/15/2023 End: 06-12-2024 PEDRO SCREENING W LAYLA PEDRO SCREENING W LAYLA Radiology Routine Encounter for screening mammogram for malignant neoplasm of breast 1 Occurrences starting 05/14/2023 until 06/12/2024 [facility] Work Phone: Comment on above: 1 Occurrences starti ng 05/14/2023 until 06/12/2024 PEDRO SCREENING W LAYLA PEDRO SCREENI NG W LAYLA Radiology Routine Encounter for screening mammogram for malignant neoplasm of breast 06/14/2023 8:27 AM EDT [facility] Work Phone: End: 10-22-2025 MR Biliary ducts and Pancreatic duct WO and W contrast IV MRI PANC/BLAYNE WO/W IVCON Radiology Routine Calcified liver mass, right lobe Pancreatic mass 1 Occurrences starting 09/22/2024 until 10/22/2025 [facility] Work Phone: Comment on above: 1 Occurrences starti ng 09/22/2024 until 10/22/2025 MR Biliary ducts and Pancreatic duct WO and W contrast IV MRI PANC/BLAYNE WO/W IVCON Radiology Routine Calcified liver mass, right lobe Pancreatic mass 10/09/2024 9:26 AM EST [facility] Work Phone: End: 10-22-2025 MR Unspecified body region 3D post processing MRI 3D POST PROCESSING Radiology Routine Calcified liver mass, right lobe Pancreatic mass 1 Occurrences starting 09/22/2024 until 10/22/2025 [facility] Comment on above: 1 Occurrences starti ng 09/22/2024 until 10/22/2025 MR Unspecified body region 3D post processing MRI 3D POST PROCESSING Radiology Routine Calcified liver mass, right lobe Pancreatic mass 10/09/2024 9:26 AM EST [facility] End: 09-22-2025 XR Chest PA and Lateral XR CHEST 2V FRONTAL/LAT Radiology STAT Viral URI with cough 1 Occurrences starting 08/23/2024 until 09/22/2025 [facility] Work Phone: Comment on above: 1 Occurrences starti ng 08/23/2024 until 09/22/2025 XR Foot - left AP an d Lateral and oblique XR FOOT GENERAL 3V AP/LAT/OBL LEFT Radiology Routine Pain 11/02/2024 2:12 PM EST [facility] Work Phone: [facility] Immunizations Immunization Date Immunization Notes Care Provider Sushma tinajero 09-22-2024 influenza, seasonal, injectable Lina Trill TYING MACHINE OPERATOR.RESIDENTIAL APPRAISER Work Phone: [facility] 04-07-2024 tetanus toxoid, redu apple diphtheria toxoid, and acellular pertussis vaccine, adsorbed Lina Trill TYING MACHINE OPERATOR.RESIDENTIAL APPRAISER Work Phone: [facility] 08-03-2022 influenza virus vacc ine, unspecified formulation Screen Wstr [facility] 07-11-2021 influenza virus vacc ine, unspecified formulation Lina Trill TYING MACHINE OPERATOR.RESIDENTIAL APPRAISER Work Phone: [facility] 08-07-2019 influenza virus vacc ine, unspecified formulation Lina Trill TYING MACHINE OPERATOR.RESIDENTIAL APPRAISER Work Phone: [facility] 07-10-2018 influenza virus vacc ine, unspecified formulation Lina Rainey TYING MACHINE OPERATOR.RESIDENTIAL APPRAISER Work Phone: [facility] 07-28-2014 influenza, seasonal, injectable Lina Mistrymarc TYING MACHINE OPERATOR.RESIDENTIAL APPRAISER Work Phone: [facility] 01-20-2013 tetanus toxoid, redu apple diphtheria toxoid, and acellular pertussis vaccine, adsorbed Mri (I-Stat/1.5t) Work Phone: [facility] 07-29-2008 influenza virus vacc ine, unspecified formulation Mri (I-Stat/1.5t) Work Phone: [facility] Payers Date Payer Category Payer Self-pay 2016 Private Health Insurance [facility] [id number] 2016 Unknown [facility] [id number] 2016-Present [phone] [address] [address] [place] [address] Indemnity [id number] 2016 Unknown [id number] 2016 Unknown [id number] Unknown [id number] Social History Date Type Detail Facility Start: 06-15-2022 End: 06-14-2023 Tobacco smoking status NHIS Never smoked tobacco [facility] Start: 12-06-2021 End: 12-07-2024 Alcohol intake Current drinker of alcohol (finding) [facility] Start: 07-29-2012 History SDOH Alcohol Comment Seldom,NOT WHILE [facility] Start: 1980 Sex Assigned At Not on file [facility] Start: 12-11-2021 End: 08-16-2022 Exposure to SARS-CoV-2 (event) Not sure [facility] Start: 06-15-2022 End: 06-14-2023 Tobacco use and exposure Smokeless tobacco non-user [facility] Start: 1980 Sex Assigned At Female C [facility] Start: 08-16-2022 End: 06-14-2023 History of Social function [facility] Start: 08-16-2022 End: 06-14-2023 Tobacco use panel [facility] National Score (1-100), lower number is lower risk Not on file [facility] Start: 02-11-2022 Gender identity Identifies as female gender (finding) [facility] Start: 02-11-2022 Sexual orientation Heterosexual (fin ding) [facility] NEGATED: Highlighted rowStart: SIL History of tobacco use Passive smoker [facility] Work Phone: Clinical Notes 08-19-2012 to 03-15-2025 Patient InstructionsMeghan Pedroza APRN.RESIDENTIAL APPRAISER - 03/15/2025 2:45 PM Gio Cohen, PT - 02/04/2025 10:43 AM Gio Cohen, PT - 01/18/2025 7:44 AM Davida Londono, PT - 01/11/2025 1:14 PM EDT Note Date & Type Note Facility 03-15-2025 Instructions Cielo Urena MA - 03/15/2025 2:52 PM EDT [facility] Thank you for allowing me to examine you for signs of skin cancer today. We had an opportunity to discuss my findings and any treatments I recommended. I believe that there are several steps that a person can take to help prevent skin cancers and to detect them at an early, treatable stage: I highly recommend that you perform your own complete skin check once a month looking for changing or unusual spots Use a wall-mounted mirror and a hand mirror to assist in seeing body areas that are difficult to see otherwise If you have a family member that can assist, this is often helpful Please pay attention to the ABCDs of melanoma. Concerning features include moles that are Asymmetric, Borders that are irregular, more than one Color, Diameter greater than a pencil eraser and Evolution or change in your moles Please show any changing moles to your provider Additional information can be obtained at: [email or web address] In many cases, skin cancer can be prevented. The best way to protect yourself is to avoid too much sun and sunburns. Health care providers believe that ultraviolet rays (UV rays) from the sun damage the skin and over time lead to skin cancer. Here are ways to protect yourself: Don't spend long periods of time in direct sunlight Wear hats with brims to protect your face and ears Wear long-sleeved shirts and pants to protect your arms and legs Use broad spectrum sunscreens with a SPF (skin protection factor) of 30 or higher that protect against burning and tanning rays. Apply the lotion 30 minutes before you go outside. Broad-spectrum sunscreens protect against UV-B and UV-A rays Wear sunglasses to protect your eyes Use a lip balm with sunscreen Avoid the sun between peak sun hours between 10am and 4pm Remember to reapply every two hours or after swimming or sweating documented in this encounter [facility] 03-15-2025 Note HNO ID: [id number] Author: MEGHAN PEDROZA APRN.RESIDENTIAL APPRAISER Service: ? Author Type: Nurse Practitioner Type: Progress Notes Filed: 03/15/2025 14:59 Note Text: NEW PATIENT Last visit: New Chief Complaint: Full body skin exam History of Present Ilness: Estefani Mishra is a 44 year old female presents today for a FBSE No other concerns today /planning or : no Pertinent Past Medical History: -Personal history of skin cancer: No -Personal history of skin disease: No -History of organ transplant/immunosuppressed: No -History of atypical moles: No -Pacemaker or defibrillator: No Specialty Problems None Pertinent Family medical history: History of melanoma: No, but father hx of BCC Review of Systems: Constitutional: Denies fever, chills, night sweats, unintentional weight loss. Skin per HPI. No other new/concerning skin growth. Physical Exam: General: well appearing, of stated age, in no acute distress Neurology: alert and oriented times three Psychiatry: normal affect and speech Varghese skin type: II A skin exam was done of the scalp, face including eyelids and lips, ears, neck, chest, back, abdomen, bilateral upper extremities including digits, bilateral lower extremities and digits, buttocks, nails, except genitals Skin exam normal with the exception of: Few scattered brown stuck on papules and plaques on the head, trunk and extremities Regular and symmetric brown macules and papules on the head, trunk and extremities Scattered reticulated light sotomayor macules in sun distribution Scattered small meraz red papules throughout Assessment and Plan: 1. Meraz angiomas Reassurance on benign nature of lesions and recommend routine self-examinations. Recommend observation and encouraged to notify office of changes. 2. Solar lentigines, Multiple benign nevi, Seborrheic Keratoses, Reassurance on benign nature of lesions and recommend routine self-examinations. Recommend observation and encouraged to notify office of changes. Sunscreen (SPF 30 or higher). Sun protective clothing can be used in lieu of sunscreen but must be worn the entire time you are exposed to the sun's rays The ABCDEs of melanoma were reviewed with the patient and the importance of routine self-examination of moles was emphasized. Should any areas change in size, shape or color, bleed or become tender, the patient will contact the office for evaluation sooner than their interval appointment. Patient verbalizes understanding and agrees with treatment plan. Follow up: 1-2 years or sooner if something concerning arises. The documentation for this note was completed by Cielo Urena MA acting as scribe for Meghan Cardenas March,NEEL. March 15, 2025 7:18 AM. Cielo Urena MA I agree with the Chief Complaint, ROS, and Past Histories independently gathered by the clinical bioinformatics support specialist and the remaining scribed note accurately describes my personal service to the patient. Meghan Pedroza, JEN.RESIDENTIAL APPRAISER [facility] 03-07-2025 History of Presen t illness Narrative NEW PATIENT Last visit: New Chief Complaint: Full body skin exam History of Present Ilness: Estefani Mishra is a 44 year old female presents today for a FBSE No other concerns today /planning or : no Pertinent Past Medical History: -Personal history of skin cancer: No -Personal history of skin disease: No -History of organ transplant/immunosuppressed: No -History of atypical moles: No -Pacemaker or defibrillator: No Specialty Problems None Pertinent Family medical history: History of melanoma: No, but father hx of BCC Review of Systems: Constitutional: Denies fever, chills, night sweats, unintentional weight loss. Skin per HPI. No other new/concerning skin growth. Physical Exam: General: well appearing, of stated age, in no acute distress Neurology: alert and oriented times three Psychiatry: normal affect and speech Varghese skin type: II A skin exam was done of the scalp, face including eyelids and lips, ears, neck, chest, back, abdomen, bilateral upper extremities including digits, bilateral lower extremities and digits, buttocks, nails, except genitals Skin exam normal with the exception of: Few scattered brown stuck on papules and plaques on the head, trunk and extremities Regular and symmetric brown macules and papules on the head, trunk and extremities Scattered reticulated light sotomayor macules in sun distribution Scattered small meraz red papules throughout Assessment and Plan: 1. Meraz angiomas Reassurance on benign nature of lesions and recommend routine self-examinations. Recommend observation and encouraged to notify office of changes. 2. Solar lentigines, Multiple benign nevi, Seborrheic Keratoses, Reassurance on benign nature of lesions and recommend routine self-examinations. Recommend observation and encouraged to notify office of changes. Sunscreen (SPF 30 or higher). Sun protective clothing can be used in lieu of sunscreen but must be worn the entire time you are exposed to the sun's rays The ABCDEs of melanoma were reviewed with the patient and the importance of routine self-examination of moles was emphasized. Should any areas change in size, shape or color, bleed or become tender, the patient will contact the office for evaluation sooner than their interval appointment. Patient verbalizes understanding and agrees with treatment plan. Follow up: 1-2 years or sooner if something concerning arises. The documentation for this note was completed by Cielo Urena MA acting as scribe for Meghan Pedroza APRN.CNP. March 15, 2025 7:18 AM. Cielo Urena MA I agree with the Chief Complaint, ROS, and Past Histories independently gathered by the clinical bioinformatics support specialist and the remaining scribed note accurately describes my personal service to the patient. Meghan Pedroza APRN.CNP documented in this encounter [facility] 02-04-2025 Note HNO ID: [id number] Author: GIO PERALTA PT Service: ? Author Type: Physical Therapist Type: Progress Notes Filed: 02/04/2025 11:15 Note Text: Episode Visit Count: 6 Therapist That Will Accept/Oversee The Plan Of Care: Gio Peralta PT Start of Care Date: 12/18/24 Onset Date: 10/07/24 Patient Identified by Name and Date of : Yes REHABILITATION AND SPORTS THERAPY PHYSICAL THERAPY DISCONTINUANCE OF CARE PLAN OF CARE UPDATE: Assessment: Estefani Mishra is discontinued from Physical Therapy services due to goal achievement and maximal benefit.. Patient was seen for 6 visits from Start of Care Date: 12/18/24 to 02/04/2025 and treatment included: Therapeutic exercise and Manual therapy. Goals for Episode of Care: established 12/18/24 [place] in home exercise program. - Met Perform holding a coffee cup and write without pain. - Met Increased strength of RUE to 5/5 without pain for ease of lifting objects - Met Patient Goals: Be able to workout without pain SUBJECTIVE: Pt states she feels 95% improvement overall. She feels her arm is doing a lot better. Some days it does not bother her at all. No problems with reaching or holding things. Somtimes when she is writing she can still feel the discomfort. Patient Goals: Be able to workout without pain Functional Limitations: nothing Prior Level of Function: Independent without limitations Intake Information: Prescription present Pain: Pain Pain Level: 0 Pain Location: Elbow - Right PROMIS Scales 01/16/2025 12/17/2024 Higher is Better Phys Func - T Score 59 (within normal limits) 61 (within normal limits) Phys Func - Percentile 82 86 Self-Eff Symptom - T Score 69 (High) 69 (High) Self-Eff Symptom - Percentile 97 97 T-scores: mean of general population = 50. 5 points is clinically meaningfully difference Percentiles provide an indication of how the patient's score ranks in relation to the general population. Higher percentile rankings indicate better function/quality of life. 50th percentile is the average of the general population and indicates half of respondents had a worse score. OBJECTIVE MEASURES WITH LEVEL OF FUNCTION: Elbow Observations R Elbow/Wrist Palpation Tenderness: Extensor carpi radialis brevis UE AROM R UE AROM: WNL L UE AROM: WNL UE and Cervical Strength R UE Strength: 5/5 L UE Strength: 5/5 TREATMENT: Manual Therapy: 1: All objective measures taken this session Soft Tissue Mobilization: IASTM over the R ECRB with pt resting arm on table. Then thumb gliding along the ECRB muscle belly starting proximally working distally. Skilled Intervention: Manual skills to improve joint mobility, ROM, and decrease pain. Utilized anatomy knowledge of the clinician, and assessment of patient's response to intervention. Billing Manual TherapyTreatment Minutes: 24 Skilled Treatment Time Minutes (timed and untimed codes): 24 Total Session Time (minutes): 24 Session Start Time : 1042 Session Stop Time : 1106 Gio Peralta PT [facility] 02-04-2025 History of Presen t illness Narrative Episode Visit Count: 6 Therapist That Will Accept/Oversee The Plan Of Care: Gio Peralta PT Start of Care Date: 12/18/24 Onset Date: 10/07/24 Patient Identified by Name and Date of : Yes REHABILITATION AND SPORTS THERAPY PHYSICAL THERAPY DISCONTINUANCE OF CARE PLAN OF CARE UPDATE: Assessment: Estefani Mishra is discontinued from Physical Therapy services due to goal achievement and maximal benefit.. Patient was seen for 6 visits from Start of Care Date: 12/18/24 to 02/04/2025 and treatment included: Therapeutic exercise and Manual therapy. Goals for Episode of Care: established 12/18/24 [place] in home exercise program. - Met Perform holding a coffee cup and write without pain. - Met Increased strength of RUE to 5/5 without pain for ease of lifting objects - Met Patient Goals: Be able to workout without pain SUBJECTIVE: Pt states she feels 95% improvement overall. She feels her arm is doing a lot better. Some days it does not bother her at all. No problems with reaching or holding things. Somtimes when she is writing she can still feel the discomfort. Patient Goals: Be able to workout without pain Functional Limitations: nothing Prior Level of Function: Independent without limitations Intake Information: Prescription present Pain: Pain Pain Level: 0 Pain Location: Elbow - Right PROMIS Scales 01/16/2025 12/17/2024 Higher is Better Phys Func - T Score 59 (within normal limits) 61 (within normal limits) Phys Func - Percentile 82 86 Self-Eff Symptom - T Score 69 (High) 69 (High) Self-Eff Symptom - Percentile 97 97 T-scores: mean of general population = 50. 5 points is clinically meaningfully difference Percentiles provide an indication of how the patient's score ranks in relation to the general population. Higher percentile rankings indicate better function/quality of life. 50th percentile is the average of the general population and indicates half of respondents had a worse score. OBJECTIVE MEASURES WITH LEVEL OF FUNCTION: Elbow Observations R Elbow/Wrist Palpation Tenderness: Extensor carpi radialis brevis UE AROM R UE AROM: WNL L UE AROM: WNL UE and Cervical Strength R UE Strength: 5/5 L UE Strength: 5/5 TREATMENT: Manual Therapy: 1: All objective measures taken this session Soft Tissue Mobilization: IASTM over the R ECRB with pt resting arm on table. Then thumb gliding along the ECRB muscle belly starting proximally working distally. Skilled Intervention: Manual skills to improve joint mobility, ROM, and decrease pain. Utilized anatomy knowledge of the clinician, and assessment of patient's response to intervention. Billing Manual TherapyTreatment Minutes: 24 Skilled Treatment Time Minutes (timed and untimed codes): 24 Total Session Time (minutes): 24 Session Start Time : 1042 Session Stop Time : 1106 Gio Peralta PT documented in this encounter [facility] [facility] 01-18-2025 Note HNO ID: [id number] Author: FABIAN, GIO, PT Service: ? Author Type: Physical Therapist Type: Progress Notes Filed: 01/18/2025 08:19 Note Text: Episode Visit Count: 5 Therapist That Will Accept/Oversee The Plan Of Care: Gio Peralta PT Start of Care Date: 12/18/24 Onset Date: 10/07/24 Patient Identified by Name and Date of : Yes REHABILITATION AND SPORTS THERAPY PHYSICAL THERAPY TREATMENT NOTE ASSESSMENT: Estefani Mishra tolerated the session with expected muscle soreness. She demonstrated improved muscular tension of ECRB post MT. The patient will continue to benefit from ongoing skilled physical therapy to progress toward set goals. PLAN FOR NEXT VISIT: PN SUBJECTIVE: Did well with the needling. This had a delayed affect making her feel better. She was not sore the day after. Did some weeding last night and she is sore from that. Pain: Pain Pain Location: Elbow - Right OBJECTIVE MEASURES WITH LEVEL OF FUNCTION: Tender and tight ECRB of the R forearm Multiple twitches generated with DDN Normal response by the pt to the DDN performed TREATMENT: Therapeutic Exercise: 1: Wrist ext stretch seated 3 x 30 sec 2: Wrist flexion/ext AROM x 10 (done after DDN) Skilled Intervention: Patient was educated in proper exercise technique and purpose for exercises. Provided written instruction for home exercise program to facilitate proper performance and compliance. Manual Therapy: Soft Tissue Mobilization: STM gentle gliding of thumbs over the ECRB Dry Needling: DDN of R ECRB (see note for details) Skilled Intervention: Manual skills to improve joint mobility, ROM, and decrease pain. Utilized anatomy knowledge of the therapist, and assessment of patient's response to intervention. Billing Therapeutic Exercise Treatment Minutes: 6 Manual TherapyTreatment Minutes: 25 Skilled Treatment Time Minutes (timed and untimed codes): 31 Total Session Time (minutes): 31 Session Start Time : 743 Session Stop Time : 814 Gio Peralta PT [facility] 01-18-2025 History of Presen t illness Narrative Episode Visit Count: 5 Therapist That Will Accept/Oversee The Plan Of Care: Gio Peralta PT Start of Care Date: 12/18/24 Onset Date: 10/07/24 Patient Identified by Name and Date of : Yes REHABILITATION AND SPORTS THERAPY PHYSICAL THERAPY TREATMENT NOTE ASSESSMENT: Estefani Mishra tolerated the session with expected muscle soreness. She demonstrated improved muscular tension of ECRB post MT. The patient will continue to benefit from ongoing skilled physical therapy to progress toward set goals. PLAN FOR NEXT VISIT: PN SUBJECTIVE: Did well with the needling. This had a delayed affect making her feel better. She was not sore the day after. Did some weeding last night and she is sore from that. Pain: Pain Pain Location: Elbow - Right OBJECTIVE MEASURES WITH LEVEL OF FUNCTION: Tender and tight ECRB of the R forearm Multiple twitches generated with DDN Normal response by the pt to the DDN performed TREATMENT: Therapeutic Exercise: 1: Wrist ext stretch seated 3 x 30 sec 2: Wrist flexion/ext AROM x 10 (done after DDN) Skilled Intervention: Patient was educated in proper exercise technique and purpose for exercises. Provided written instruction for home exercise program to facilitate proper performance and compliance. Manual Therapy: Soft Tissue Mobilization: STM gentle gliding of thumbs over the ECRB Dry Needling: DDN of R ECRB (see note for details) Skilled Intervention: Manual skills to improve joint mobility, ROM, and decrease pain. Utilized anatomy knowledge of the therapist, and assessment of patient's response to intervention. Billing Therapeutic Exercise Treatment Minutes: 6 Manual TherapyTreatment Minutes: 25 Skilled Treatment Time Minutes (timed and untimed codes): 31 Total Session Time (minutes): 31 Session Start Time : 743 Session Stop Time : 814 Gio Peratla PT documented in this encounter [facility] 01-11-2025 Note HNO ID: [id number] Author: DAVIDA SÁNCHEZ PT Service: ? Author Type: Physical Therapist Type: Progress Notes Filed: 01/11/2025 13:58 Note Text: Episode Visit Count: 4 Therapist That Will Accept/Oversee The Plan Of Care: Gio Peralta PT Start of Care Date: 12/18/24 Onset Date: 10/07/24 REHABILITATION AND SPORTS THERAPY PHYSICAL THERAPY TREATMENT NOTE ASSESSMENT: Estefani Mishra tolerated the session with increased symptoms. She demonstrated LTR and reports of concordant symptoms with DN R brachioradialis. The patient will continue to benefit from ongoing skilled physical therapy to progress toward set goals. Current Frequency: 1x/week PLAN FOR NEXT VISIT: assess symptom response to DN R brachioradialis. Consider DN supinator, ECRB, ECRL, ECU, ED -- possibly anconeus SUBJECTIVE: Its a little sore. Pt. donates blood often. Pain: Pain Pain Level: (does not rate) Pain Location: Elbow - Right Description: Aching Post Treatment Pain Post Treatment Pain Level: Worse Post Treatment Pain Location: Elbow - Right OBJECTIVE MEASURES WITH LEVEL OF FUNCTION: TREATMENT: Therapeutic Exercise: 1: UBE 3 min F, 3 min rev level 2, 1:1 throughout, subjective collected. (1:1 time spent and subjective taken) 2: Wrist stretch RUE 3x30 sec 3: R AROM wrist flexion 2x10, supported supinated forearm, slight elbow flexion Skilled Intervention: Patient was educated in proper exercise technique and purpose for exercises. Skilled judgment was used in selection of appropriate interventions. Provided written instruction for home exercise program to facilitate proper performance and compliance. Correct performance of therapeutic exercises was facilitated with verbal, visual, and tactile cuing. Educated patient on rationale for performing exercises in regards to decreasing fatigue , increase ease of ADL, and ROM and function . Patient education as noted. Manual Therapy: 1: STM R wrist extensors: ECU, ECRB, ECRL, ED, brachioradialis, and supinator -- multiple TrP's felt along the dorsal forearm x10 min Dry Needling: x 5 min, please see note Skilled Intervention: Manual skills to improve joint mobility, ROM, and decrease pain. Utilized anatomy knowledge of the therapist, and assessment of patient's response to intervention. Dry needling to following Trigger points: R brachioradialis Needle length: 40mm 1.5 in . Dyer used 1 , needles removed 1 . Dry needling technique used: Basic needling. Patient education on purpose, precautions, safety, risks, and other treatment options regarding dry needling. Verbal consent received. Self-Jail Management: 1: Ice application and wrist extensor stretching 1-2 sets x30 sec once every hour awake 2: *Hold off on EPIS exerTradescapees HEP for 24-48 hours post - needling to allow healing. 3: discussed precautions of DN - pt. denies any contraindications 4: discussed expected symptom response and reasoning for DN Skilled Intervention: Skilled judgment in the selection of proper modification for activity of daily living/home management based on clinical presentation, deficits, and needs. Provided written instruction for activities of daily living techniques to facilitate proper performance and compliance. Reviewed patient specific diagnosis in relation to activities of daily living/home management. Activity progression based on professional judgement. Moderate verbal cues for maintaining neutral spine alignment. Provided video instruction for home program to facilitate proper performance and compliance. Correct performance of home program was facilitated with verbal, visual, and tactile cueing. Billing Therapeutic Exercise Treatment Minutes: 12 Manual TherapyTreatment Minutes: 15 Self-Care/Home Management Treatment Minutes: 5 Skilled Treatment Time Minutes (timed and untimed codes): 32 Total Session Time (minutes): 32 Session Start Time : 1313 Session Stop Time : 1345 Davida Sánchez, PT [facility] 01-11-2025 History of Presen t illness Narrative Episode Visit Count: 4 Therapist That Will Accept/Oversee The Plan Of Care: Gio Peralta PT Start of Care Date: 12/18/24 Onset Date: 10/07/24 REHABILITATION AND SPORTS THERAPY PHYSICAL THERAPY TREATMENT NOTE ASSESSMENT: Estefani Mishra tolerated the session with increased symptoms. She demonstrated LTR and reports of concordant symptoms with DN R brachioradialis. The patient will continue to benefit from ongoing skilled physical therapy to progress toward set goals. Current Frequency: 1x/week PLAN FOR NEXT VISIT: assess symptom response to DN R brachioradialis. Consider DN supinator, ECRB, ECRL, ECU, ED -- possibly anconeus SUBJECTIVE: Its a little sore. Pt. donates blood often. Pain: Pain Pain Level: (does not rate) Pain Location: Elbow - Right Description: Aching Post Treatment Pain Post Treatment Pain Level: Worse Post Treatment Pain Location: Elbow - Right OBJECTIVE MEASURES WITH LEVEL OF FUNCTION: TREATMENT: Therapeutic Exercise: 1: UBE 3 min F, 3 min rev level 2, 1:1 throughout, subjective collected. (1:1 time spent and subjective taken) 2: Wrist stretch RUE 3x30 sec 3: R AROM wrist flexion 2x10, supported supinated forearm, slight elbow flexion Skilled Intervention: Patient was educated in proper exercise technique and purpose for exercises. Skilled judgment was used in selection of appropriate interventions. Provided written instruction for home exercise program to facilitate proper performance and compliance. Correct performance of therapeutic exercises was facilitated with verbal, visual, and tactile cuing. Educated patient on rationale for performing exercises in regards to decreasing fatigue , increase ease of ADL, and ROM and function . Patient education as noted. Manual Therapy: 1: STM R wrist extensors: ECU, ECRB, ECRL, ED, brachioradialis, and supinator -- multiple TrP's felt along the dorsal forearm x10 min Dry Needling: x 5 min, please see note Skilled Intervention: Manual skills to improve joint mobility, ROM, and decrease pain. Utilized anatomy knowledge of the therapist, and assessment of patient's response to intervention. Dry needling to following Trigger points: R brachioradialis Needle length: 40mm 1.5 in . Dyer used 1 , needles removed 1 . Dry needling technique used: Basic needling. Patient education on purpose, precautions, safety, risks, and other treatment options regarding dry needling. Verbal consent received. Self-Jail Management: 1: Ice application and wrist extensor stretching 1-2 sets x30 sec once every hour awake 2: *Hold off on dumbell exericses HEP for 24-48 hours post - needling to allow healing. 3: discussed precautions of DN - pt. denies any contraindications 4: discussed expected symptom response and reasoning for DN Skilled Intervention: Skilled judgment in the selection of proper modification for activity of daily living/home management based on clinical presentation, deficits, and needs. Provided written instruction for activities of daily living techniques to facilitate proper performance and compliance. Reviewed patient specific diagnosis in relation to activities of daily living/home management. Activity progression based on professional judgement. Moderate verbal cues for maintaining neutral spine alignment. Provided video instruction for home program to facilitate proper performance and compliance. Correct performance of home program was facilitated with verbal, visual, and tactile cueing. Billing Therapeutic Exercise Treatment Minutes: 12 Manual TherapyTreatment Minutes: 15 Self-Care/Home Management Treatment Minutes: 5 Skilled Treatment Time Minutes (timed and untimed codes): 32 Total Session Time (minutes): 32 Session Start Time : 1313 Session Stop Time : 1345 Davida Sánchez PT documented in this encounter [facility] 01-04-2025 Note HNO ID: [id number] Author: GIO PERALTA PT Service: ? Author Type: Physical Therapist Type: Progress Notes Filed: 01/04/2025 08:33 Note Text: Episode Visit Count: 3 Therapist That Will Accept/Oversee The Plan Of Care: Gio Peralta PT Start of Care Date: 12/18/24 Onset Date: 10/07/24 Patient Identified by Name and Date of : Yes REHABILITATION AND SPORTS THERAPY PHYSICAL THERAPY TREATMENT NOTE ASSESSMENT: Estefani Mishra tolerated the session with expected muscle soreness. She demonstrated good tolerance to MT performed this session. The patient will continue to benefit from ongoing skilled physical therapy to progress toward set goals. PLAN FOR NEXT VISIT: Possible DDN of common extensor tendon. Continue stengthening the wrist extensors SUBJECTIVE: The elbow is doing ok. The pain seems to be higher in the arm now. Pain: Pain Pain Level: (not rated) Pain Location: Elbow - Right OBJECTIVE MEASURES WITH LEVEL OF FUNCTION: Tender at R ECRB muscle belly TREATMENT: Therapeutic Exercise: 1: UBE 2 min F (1:1 time spent and subjective taken) 2: Standing B shoulder ER lvl 3 band 4 x 10 (alms down) 3: Pron/Sup 3# 34 x 10 4: Standing shoulder flexion then added wrist extension lvl 3 band 4 x 10 Skilled Intervention: Patient was educated in proper exercise technique and purpose for exercises. Manual Therapy: 1: IASTM using scanner x 10 min 2: Thumb gliding over ECRB push to tolerance Skilled Intervention: Manual skills to improve joint mobility, ROM, and decrease pain. Utilized anatomy knowledge of the therapist, and assessment of patient's response to intervention. Billing Therapeutic Exercise Treatment Minutes: 20 Manual TherapyTreatment Minutes: 20 Skilled Treatment Time Minutes (timed and untimed codes): 40 Total Session Time (minutes): 40 Session Start Time : 747 Session Stop Time : 827 Gio Peralta PT [facility] 01-04-2025 History of Presen t illness Narrative Episode Visit Count: 3 Therapist That Will Accept/Oversee The Plan Of Care: Gio Peralta PT Start of Care Date: 12/18/24 Onset Date: 10/07/24 Patient Identified by Name and Date of : Yes REHABILITATION AND SPORTS THERAPY PHYSICAL THERAPY TREATMENT NOTE ASSESSMENT: Estefani Mishra tolerated the session with expected muscle soreness. She demonstrated good tolerance to MT performed this session. The patient will continue to benefit from ongoing skilled physical therapy to progress toward set goals. PLAN FOR NEXT VISIT: Possible DDN of common extensor tendon. Continue stengthening the wrist extensors SUBJECTIVE: The elbow is doing ok. The pain seems to be higher in the arm now. Pain: Pain Pain Level: (not rated) Pain Location: Elbow - Right OBJECTIVE MEASURES WITH LEVEL OF FUNCTION: Tender at R ECRB muscle belly TREATMENT: Therapeutic Exercise: 1: UBE 2 min F (1:1 time spent and subjective taken) 2: Standing B shoulder ER lvl 3 band 4 x 10 (alms down) 3: Pron/Sup 3# 34 x 10 4: Standing shoulder flexion then added wrist extension lvl 3 band 4 x 10 Skilled Intervention: Patient was educated in proper exercise technique and purpose for exercises. Manual Therapy: 1: IASTM using scanner x 10 min 2: Thumb gliding over ECRB push to tolerance Skilled Intervention: Manual skills to improve joint mobility, ROM, and decrease pain. Utilized anatomy knowledge of the therapist, and assessment of patient's response to intervention. Billing Therapeutic Exercise Treatment Minutes: 20 Manual TherapyTreatment Minutes: 20 Skilled Treatment Time Minutes (timed and untimed codes): 40 Total Session Time (minutes): 40 Session Start Time : 747 Session Stop Time : 827 Gio Peralta PT documented in this encounter [facility] 12-29-2024 Note HNO ID: [id number] Author: GIO PERALTA PT Service: ? Author Type: Physical Therapist Type: Progress Notes Filed: 12/29/2024 09:08 Note Text: Episode Visit Count: 2 Therapist That Will Accept/Oversee The Plan Of Care: Gio Peralta PT Start of Care Date: 12/18/24 Onset Date: 10/07/24 Patient Identified by Name and Date of : Yes REHABILITATION AND SPORTS THERAPY PHYSICAL THERAPY TREATMENT NOTE ASSESSMENT: Estefani Mishra tolerated the session with expected muscle soreness. She demonstrated some soreness post MT over the ECRB muscle belly. The patient will continue to benefit from ongoing skilled physical therapy to progress toward set goals. PLAN FOR NEXT VISIT: Continue progressing the resistance with wrist extension as tolerated. T. SUBJECTIVE: Squeezed a bottle and she felt the symptoms. It has been ok this week. Pain: Pain Pain Location: Elbow - Right OBJECTIVE MEASURES WITH LEVEL OF FUNCTION: R ECRB is tight and tender to palpation TREATMENT: Therapeutic Exercise: 1: R wrist extensor stretch 4 x 30 sec 2: R wrist extension 3# dumbbells 3 x 10 3: Wrist extension using flex bar (red) Skilled Intervention: Patient was educated in proper exercise technique and purpose for exercises. Correct performance of therapeutic exercises was facilitated with verbal and visual cuing. Manual Therapy: 1: IASTM using scanner x 10 min 2: Thumb gliding over ECRB push to tolerance Skilled Intervention: Manual skills to improve joint mobility, ROM, and decrease pain. Utilized anatomy knowledge of the therapist, and assessment of patient's response to intervention. Billing Therapeutic Exercise Treatment Minutes: 10 Manual TherapyTreatment Minutes: 20 Skilled Treatment Time Minutes (timed and untimed codes): 30 Total Session Time (minutes): 30 Session Start Time : 831 Session Stop Time : 901 Gio Peralta PT [facility] 12-29-2024 History of Presen t illness Narrative Episode Visit Count: 2 Therapist That Will Accept/Oversee The Plan Of Care: Gio Peralta PT Start of Care Date: 12/18/24 Onset Date: 10/07/24 Patient Identified by Name and Date of : Yes REHABILITATION AND SPORTS THERAPY PHYSICAL THERAPY TREATMENT NOTE ASSESSMENT: Estefani Mishra tolerated the session with expected muscle soreness. She demonstrated some soreness post MT over the ECRB muscle belly. The patient will continue to benefit from ongoing skilled physical therapy to progress toward set goals. PLAN FOR NEXT VISIT: Continue progressing the resistance with wrist extension as tolerated. T. SUBJECTIVE: Squeezed a bottle and she felt the symptoms. It has been ok this week. Pain: Pain Pain Location: Elbow - Right OBJECTIVE MEASURES WITH LEVEL OF FUNCTION: R ECRB is tight and tender to palpation TREATMENT: Therapeutic Exercise: 1: R wrist extensor stretch 4 x 30 sec 2: R wrist extension 3# dumbbells 3 x 10 3: Wrist extension using flex bar (red) Skilled Intervention: Patient was educated in proper exercise technique and purpose for exercises. Correct performance of therapeutic exercises was facilitated with verbal and visual cuing. Manual Therapy: 1: IASTM using scanner x 10 min 2: Thumb gliding over ECRB push to tolerance Skilled Intervention: Manual skills to improve joint mobility, ROM, and decrease pain. Utilized anatomy knowledge of the therapist, and assessment of patient's response to intervention. Billing Therapeutic Exercise Treatment Minutes: 10 Manual TherapyTreatment Minutes: 20 Skilled Treatment Time Minutes (timed and untimed codes): 30 Total Session Time (minutes): 30 Session Start Time : 831 Session Stop Time : 901 Gio Peralta PT documented in this encounter [facility] 12-18-2024 Note HNO ID: [id number] Author: GIO PERALTA PT Service: ? Author Type: Physical Therapist Type: Progress Notes Filed: 12/18/2024 10:41 Note Text: Episode Visit Count: 1 Therapist That Will Accept/Oversee The Plan Of Care: Gio Peralta PT Start of Care Date: 12/18/24 Onset Date: 10/07/24 Patient Identified by Name and Date of : Yes REHABILITATION AND SPORTS THERAPY PHYSICAL THERAPY EVALUATION PLAN OF CARE: Assessment: Estefani Mishra presents with chief complaint of R elbow pain that interferes with lifting, twisting . The patient presents with impairments in ADL's, independence in exercise, overall function, strength, and tissue tenderness. PROMIS? (Patient-Reported Outcomes Measurement Information System) scores were reviewed and identified as within normal limits. Prognosis for therapy is Good due to: current objective clinical presentation . Positive Cozen's and Maudsley's test on the R. The patient will benefit from skilled therapy services to meet the goals established for this plan of care as noted below. Goals for Episode of Care: established 12/18/24 [place] in home exercise program. Perform holding a coffee cup and write without pain. Increased strength of RUE to 5/5 without pain for ease of lifting objects Patient Goals: Be able to workout without pain Time Frame for Goals and Treatment : 02/12/25 Planned Interventions, Frequency, and Duration: Current Frequency: 1x/week Duration: 4 weeks Total Number of Visits Planned: 4 Planned Treatment Interventions: Therapeutic exercise (35807), Neuromuscular re-education (78978), Manual therapy (11743), Therapeutic activities (03119), Self-chcf management (50259) PLAN FOR NEXT VISIT: IASTM over ECRB/common extensor tendon. Gently loading wrist extensors. Patient demonstrates good understanding of plan of care and treatment. The above goals and plan of care were discussed and agreed upon by patient/family. SUBJECTIVE: Pain at the elbow since october. 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 Difficulty with holding a pencil to write. Pt has been wearing a brace. No N/T unless she bumps it. 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 5 points is clinically meaningfully difference Percentiles provide an indication of how the patient's score ranks in relation to the general population. Higher percentile rankings indicate better function/quality of life. 50th percentile is the average of the general population and indicates half of respondents had a worse score. OBJECTIVE MEASURES WITH LEVEL OF FUNCTION: Posture / Alignment Posture: Good Elbow Observations R Elbow/Wrist Palpation Tenderness: Lateral epicondyle, Extensor carpi radialis brevis UE AROM R UE AROM: WNL L UE AROM: WNL UE and Cervical Strength Strength Tested: Distal UE R Wrist Extension: 4-/5 (Painful) Special Tests - Elbow/Wrist/Hand Elbow/Wrist/Hand Special Tests: Cozen's Test, Maudsley's Test Cozen's Test: Right positive Maudsley's Test: Right positive Education: Education Learning Preferences: Demonstration, Explanation, Performance, Printed Materials Barriers: None Learning/educational needs: Home exercise program, Plan of Care, Changes in Plan of Care Education Provided: Yes, see treatment interventions for education provided Education Provided To: Patient Education Mode/Type: Demonstration, Explanation/Discussion, Literature/Printed Materials, Performance Response to Education/Teach Back: States/Identifies, Return Demonstration TREATMENT: PT Treatment Interventions: Therapeutic Exercise, Manual Therapy, Self-Jail Management Evaluation Therapeutic Exercise: 1: Discussed exam findings, purpose of the HEP and the HEP handout was provided to the pt. HEP discussed in detail with how to safely and properly perform each therapeutic exercise. 2: Seated wrist extensor stretch x 30 sec 3: Seated wrist extension 3# 3 x 12 Skilled Intervention: Patient was educated in proper exercise technique and purpose for exercises. Skilled judgment was used in selection of appropriate interventions. Correct performance of therapeutic exercises was facilitated with verbal and visual cuing. Manual Therapy: 1: IASTM using scanner x 9 min (normal response noted w (more content not included)... [facility] 12-18-2024 History of Presen t illness Narrative Episode Visit Count: 1 Therapist That Will Accept/Oversee The Plan Of Care: Gio Peralta PT Start of Care Date: 12/18/24 Onset Date: 10/07/24 Patient Identified by Name and Date of : Yes RE[facility]ABILITATION AND SPORTS THERAPY PHYSICAL THERAPY EVALUATION PLAN OF CARE: Assessment: Estefani Mishra presents with chief complaint of R elbow pain that interferes with lifting, twisting . The patient presents with impairments in ADL's, independence in exercise, overall function, strength, and tissue tenderness. PROMIS (Patient-Reported Outcomes Measurement Information System) scores were reviewed and identified as within normal limits. Prognosis for therapy is Good due to: current objective clinical presentation . Positive Cozen's and Maudsley's test on the R. The patient will benefit from skilled therapy services to meet the goals established for this plan of care as noted below. Goals for Episode of Care: established 12/18/24 [place] in home exercise program. Perform holding a coffee cup and write without pain. Increased strength of RUE to 5/5 without pain for ease of lifting objects Patient Goals: Be able to workout without pain Time Frame for Goals and Treatment : 02/12/25 Planned Interventions, Frequency, and Duration: Current Frequency: 1x/week Duration: 4 weeks Total Number of Visits Planned: 4 Planned Treatment Interventions: Therapeutic exercise (99501), Neuromuscular re-education (63160), Manual therapy (91890), Therapeutic activities (88591), Self-chcf management (78511) PLAN FOR NEXT VISIT: IASTM over ECRB/common extensor tendon. Gently loading wrist extensors. Patient demonstrates good understanding of plan of care and treatment. The above goals and plan of care were discussed and agreed upon by patient/family. SUBJECTIVE: Pain at the elbow since october. 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 Difficulty with holding a pencil to write. Pt has been wearing a brace. No N/T unless she bumps it. 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 5 points is clinically meaningfully difference Percentiles provide an indication of how the patient's score ranks in relation to the general population. Higher percentile rankings indicate better function/quality of life. 50th percentile is the average of the general population and indicates half of respondents had a worse score. OBJECTIVE MEASURES WITH LEVEL OF FUNCTION: Posture / Alignment Posture: Good Elbow Observations R Elbow/Wrist Palpation Tenderness: Lateral epicondyle, Extensor carpi radialis brevis UE AROM R UE AROM: WNL L UE AROM: WNL UE and Cervical Strength Strength Tested: Distal UE R Wrist Extension: 4-/5 (Painful) Special Tests - Elbow/Wrist/Hand Elbow/Wrist/Hand Special Tests: Cozen's Test, Maudsley's Test Cozen's Test: Right positive Maudsley's Test: Right positive Education: Education Learning Preferences: Demonstration, Explanation, Performance, Printed Materials Barriers: None Learning/educational needs: Home exercise program, Plan of Care, Changes in Plan of Care Education Provided: Yes, see treatment interventions for education provided Education Provided To: Patient Education Mode/Type: Demonstration, Explanation/Discussion, Literature/Printed Materials, Performance Response to Education/Teach Back: States/Identifies, Return Demonstration TREATMENT: PT Treatment Interventions: Therapeutic Exercise, Manual Therapy, Self-Jail Management Evaluation Therapeutic Exercise: 1: Discussed exam findings, purpose of the HEP and the HEP handout was provided to the pt. HEP discussed in detail with how to safely and properly perform each therapeutic exercise. 2: Seated wrist extensor stretch x 30 sec 3: Seated wrist extension 3# 3 x 12 Skilled Intervention: Patient was educated in proper exercise technique and purpose for exercises. Skilled judgment was used in selection of appropriate interventions. Correct performance of therapeutic exercises was facilitated with verbal and visual cuing. Manual Therapy: 1: IASTM using scanner x 9 min (normal response noted with redness to the focused area) Skilled Intervention: Manual skills to improve joint mobility, ROM, and decrease pain. Utilized anatomy knowledge of the therapist, and assessment of patient's response to intervention. Self-Jail Management: 1: Discussed using moist heat over the wrist extensors for 10 min before stretching. Self massage was recommended after HEP was completed to reduce soreness from exercise. Skilled Intervention: Skilled judgment in the selection of proper modification for activity of daily living/home management based on clinical presentation, deficits, and needs. Billing * Evaluation Low Complexity: 1 Unit Therapeutic Exercise Treatment Minutes: 12 Manual TherapyTreatment Minutes: 9 Self-Care/Home Management Treatment Minutes: 3 Skilled Treatment Time Minutes (timed and untimed codes): 49 Total Session Time (minutes): 49 Session Start Time : 0754 Session Stop Time : 0843 Gio Peralta PT documented in this encounter [facility] 12-07-2024 Note HNO ID: [id number] Author: LINA RAINEY APRN.RESIDENTIAL APPRAISER Service: ? Author Type: Nurse Practitioner Type: Progress Notes Filed: 12/07/2024 13:27 Note Text: Glenn Mishra is a 44 year old female here today for elbow pain. I reviewed past medical, surgical, social, and family histories today and updated chart. Allergies, chronic medications, and supplements were also reviewed. 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 Numbness or tingling in arm (if so, state location): none Weakness in arm: yes, not able to lift as much but could be avoiding due to pain Better with: nothing really Worse with: grabbing items, worse at night, straightening the elbow Has tried: Ice: Yes Ibuprofen, Advil, Motrin, Aleve: No Tylenol, acetaminophen: No Tennis elbow band: Yes, helps a little Topical medication like ICY Hot , Bengay: No Other: sleeve elbow brace Previous problems: None Previous treatment (medication, injections): none Previous xrays / imaging: none PAST MEDICAL HISTORY Diagnosis Date Adenomatous colon polyp Anemia DURING COLLEGE Female infertility of unspecified origin Female infertility Female stress incontinence Liver function study, abnormal BENIGN CALCIFICATION OF LIVER Mass of pancreas 2021 PAST SURGICAL HISTORY Procedure Laterality Date COLONOSCOPY 07/27/2021 Dr. Morgan, Polyp, repeat 5 years EGD 07/27/2021 Dr Morgan, Normal LIVER BIOPSY 02/12/2022 no evidence of atypia or malignancy ALLERGIES Patient has no known allergies. MEDICATIONS iv contrast (will be provided with radiology test) MRI PANC/BLAYNE Inject, intravenously, once for 1 dose. No IV access, insert saline lock prior to the beginning of sedation, infusion, injection of imaging exam. Discontinue saline lock post exam. If Pt. has a central line or IVAD, may access for administration according to line specific nursing protocol. Once exam is complete flush line and de-access according to line specific nursing protocol in the MR contrast administration guidelines link. Magnesium 200 mg tab Lactobacillus acidophilus (PROBIOTIC ACIDOPHILUS ORAL) Take by mouth. ascorbic acid, vitamin C, (VITAMIN C) 125 mg chew psyllium seed, with dextrose, (FIBER SUPPLEMENT ORAL) Take by mouth. Multivitamin capsule Take 1 capsule by mouth once daily. FERROUS SULFATE (IRON ORAL) Take by mouth. FAMILY HISTORY Problem Relation Age of Onset Breast Cancer Mother Hypertension Mother other (Gallbladder Disease) Mother Gallbladder Removed Heart Father valve replacement Skin Cancer Father Hyperlipidemia Father No Known Problems Sister Breast Cancer Maternal Grandmother Aneurysm Maternal Grandfather stomach Heart Paternal Grandmother Cancer Paternal Grandfather No Known Problems Daughter No Known Problems Son Pancreatic Cancer Maternal Uncle Colon Cancer No Family History Social History Tobacco Use Smoking status: Never Passive exposure: Never Smokeless tobacco: Never Vaping Use Vaping status: Never Used Substance Use Topics Alcohol use: Yes Comment: Seldom,NOT WHILE Drug use: No Review of Systems Constitutional: Negative for appetite change, chills, fatigue, fever and unexpected weight change. HENT: Negative for congestion, ear pain, rhinorrhea and sore throat. Eyes: Negative for pain, discharge, itching and visual disturbance. Respiratory: Negative for cough, shortness of breath and wheezing. Cardiovascular: Negative for chest pain, palpitations and leg swelling. Gastrointestinal: Negative for abdominal pain, constipation, diarrhea, nausea and vomiting. Genitourinary: Negative for difficulty urinating. Musculoskeletal: Positive for arthralgias. Skin: Negative for rash. Neurological: Negative for dizziness, tremors, weakness and headaches. Psychiatric/Behavioral: Negative for dysphoric mood and sleep disturbance. The patient is not nervous/anxious. Objective BP 110/70 Pulse 60 Temp 98.1 Ht 5' 8 (1.73m) Wt 170 lb (77.1kg) SpO2 98% LMP 08/09/2024 BMI 25.85 kg/(m2). Physical Exam Constitutional: Appearance: Normal appearance. Musculoskeletal: Right elbow: No swelling, deformity or effusion. Normal range of motion. No tenderness. Arms: Comments: Pain located just lateral to olecranon process Neurological: Mental Status: She is alert and oriented to person, place, and time. Sensory: Sensation is intact. Motor: Motor function is intact. No weakness. ASSESSMENT/PLAN: 1. Right elbow pain - ICD9: 719.42, ICD10: M25.521 Likely lateral epicondylitis but not tender on exam Will treat with 1-2 weeks NSAIDs and PT since pain has been persistent for 2 months now Follo (more content not included)... [facility] 12-07-2024 History of Presen t illness Narrative Images from the original note were not included. Subjective Estefani Mishra is a 44 year old female here today for elbow pain. I reviewed past medical, surgical, social, and family histories today and updated chart. Allergies, chronic medications, and supplements were also reviewed. 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 Numbness or tingling in arm (if so, state location): none Weakness in arm: yes, not able to lift as much but could be avoiding due to pain Better with: nothing really Worse with: grabbing items, worse at night, straightening the elbow Has tried: Ice: Yes Ibuprofen, Advil, Motrin, Aleve: No Tylenol, acetaminophen: No Tennis elbow band: Yes, helps a little Topical medication like ICY Hot , Bengay: No Other: sleeve elbow brace Previous problems: None Previous treatment (medication, injections): none Previous xrays / imaging: none PAST MEDICAL HISTORY Diagnosis Date Adenomatous colon polyp Anemia DURING COLLEGE Female infertility of unspecified origin Female infertility Female stress incontinence Liver function study, abnormal BENIGN CALCIFICATION OF LIVER Mass of pancreas 2021 PAST SURGICAL HISTORY Procedure Laterality Date COLONOSCOPY 07/27/2021 Dr. Morgan, Polyp, repeat 5 years EGD 07/27/2021 Dr Morgan, Normal LIVER BIOPSY 02/12/2022 no evidence of atypia or malignancy ALLERGIES Patient has no known allergies. MEDICATIONS iv contrast (will be provided with radiology test) MRI PANC/BLAYNE Inject, intravenously, once for 1 dose. No IV access, insert saline lock prior to the beginning of sedation, infusion, injection of imaging exam. Discontinue saline lock post exam. If Pt. has a central line or IVAD, may access for administration according to line specific nursing protocol. Once exam is complete flush line and de-access according to line specific nursing protocol in the MR contrast administration guidelines link. Magnesium 200 mg tab Lactobacillus acidophilus (PROBIOTIC ACIDOPHILUS ORAL) Take by mouth. ascorbic acid, vitamin C, (VITAMIN C) 125 mg chew psyllium seed, with dextrose, (FIBER SUPPLEMENT ORAL) Take by mouth. Multivitamin capsule Take 1 capsule by mouth once daily. FERROUS SULFATE (IRON ORAL) Take by mouth. FAMILY HISTORY Problem Relation Age of Onset Breast Cancer Mother Hypertension Mother other (Gallbladder Disease) Mother Gallbladder Removed Heart Father valve replacement Skin Cancer Father Hyperlipidemia Father No Known Problems Sister Breast Cancer Maternal Grandmother Aneurysm Maternal Grandfather stomach Heart Paternal Grandmother Cancer Paternal Grandfather No Known Problems Daughter No Known Problems Son Pancreatic Cancer Maternal Uncle Colon Cancer No Family History Social History Tobacco Use Smoking status: Never Passive exposure: Never Smokeless tobacco: Never Vaping Use Vaping status: Never Used Substance Use Topics Alcohol use: Yes Comment: Seldom,NOT WHILE Drug use: No Review of Systems Constitutional: Negative for appetite change, chills, fatigue, fever and unexpected weight change. HENT: Negative for congestion, ear pain, rhinorrhea and sore throat. Eyes: Negative for pain, discharge, itching and visual disturbance. Respiratory: Negative for cough, shortness of breath and wheezing. Cardiovascular: Negative for chest pain, palpitations and leg swelling. Gastrointestinal: Negative for abdominal pain, constipation, diarrhea, nausea and vomiting. Genitourinary: Negative for difficulty urinating. Musculoskeletal: Positive for arthralgias. Skin: Negative for rash. Neurological: Negative for dizziness, tremors, weakness and headaches. Psychiatric/Behavioral: Negative for dysphoric mood and sleep disturbance. The patient is not nervous/anxious. Objective BP 110/70 Pulse 60 Temp 98.1 Ht 5' 8 (1.73m) Wt 170 lb (77.1kg) SpO2 98% LMP 08/09/2024 BMI 25.85 kg/(m^2). Physical Exam Constitutional: Appearance: Normal appearance. Musculoskeletal: Right elbow: No swelling, deformity or effusion. Normal range of motion. No tenderness. Arms: Comments: Pain located just lateral to olecranon process Neurological: Mental Status: She is alert and oriented to person, place, and time. Sensory: Sensation is intact. Motor: Motor function is intact. No weakness. ASSESSMENT/PLAN: 1. Right elbow pain - ICD9: 719.42, ICD10: M25.521 Likely lateral epicondylitis but not tender on exam Will treat with 1-2 weeks NSAIDs and PT since pain has been persistent for 2 months now Follow up for worsening or persistent symptoms - would obtain xray and referral to ortho - NAPROXEN 500 MG TABLET - CONSULT TO PHYSICAL THERAPY Lina Rainey APRN.RESIDENTIAL APPRAISER documented in this encounter [facility] 11-03-2024 History and physical note Images from the original note were not included. Opal Smith MD Surgical Oncology [address] [facility], [address] [place] [id number] Name: Estefani Mishra Age: [age] year old Sex: Estefani Mishra : 1980 Referring Provider: No ref. provider found Subjective CHIEF COMPLAINT: Pancreatic cyst HISTORY OF PRESENT ILLNESS: Ms. Mishra is a 44 year old female who presents for management of pancreatic cystic lesions. In 2021 she was following with GI and was found on imaging to have a liver mass and pancreatic cyst. The liver mass was biopsied and found to be benign. She was recommended to have surveillance imaging with MRCP but was delayed in getting it. She recently had a repeat MRI which again demonstrated these lesions. Reports no symptoms. Denies abdominal pain, nausea, or vomiting. PAST MEDICAL HISTORY Diagnosis Date Adenomatous colon polyp Anemia DURING COLLEGE Female infertility of unspecified origin Female infertility Female stress incontinence Liver function study, abnormal BENIGN CALCIFICATION OF LIVER Mass of pancreas 2021 PAST SURGICAL HISTORY Procedure Laterality Date COLONOSCOPY 07/27/2021 Dr. Morgan, Polyp, repeat 5 years EGD 07/27/2021 Dr Morgan, Normal LIVER BIOPSY 02/12/2022 no evidence of atypia or malignancy Current Outpatient Medications on File Prior to Visit Medication Sig Magnesium 200 mg tab Lactobacillus acidophilus (PROBIOTIC ACIDOPHILUS ORAL) Take by mouth. ascorbic acid, vitamin C, (VITAMIN C) 125 mg chew psyllium seed, with dextrose, (FIBER SUPPLEMENT ORAL) Take by mouth. Multivitamin capsule Take 1 capsule by mouth once daily. FERROUS SULFATE (IRON ORAL) Take by mouth. No current facility-administered medications on file prior to visit. ALLERGIES No Known Allergies FAMILY HISTORY Problem Relation Age of Onset Breast Cancer Mother Hypertension Mother other (Gallbladder Disease) Mother Gallbladder Removed Heart Father valve replacement Skin Cancer Father Hyperlipidemia Father No Known Problems Sister Breast Cancer Maternal Grandmother Aneurysm Maternal Grandfather stomach Heart Paternal Grandmother Cancer Paternal Grandfather No Known Problems Daughter No Known Problems Son Pancreatic Cancer Maternal Uncle Colon Cancer No Family History Social History Tobacco Use Smoking status: Never Passive exposure: Never Smokeless tobacco: Never Vaping Use Vaping status: Never Used Substance Use Topics Alcohol use: Yes Comment: Seldom,NOT WHILE Drug use: No I personally reviewed Tobacco Allergies Meds Problems Med Hx Surg Hx Fam Hx Objective PHYSICAL EXAM: BP 118/76 Ht 5' 6 (1.68m) Wt 168 lb (76.2kg) LMP 08/09/2024 BMI 27.13 kg/(m^2). Physical Exam Constitutional: General: She is not in acute distress. Appearance: Normal appearance. HENT: Head: Normocephalic and atraumatic. Eyes: Extraocular Movements: Extraocular movements intact. Conjunctiva/sclera: Conjunctivae normal. Cardiovascular: Rate and Rhythm: Normal rate. Pulses: Normal pulses. Pulmonary: Effort: Pulmonary effort is normal. No respiratory distress. Breath sounds: No stridor. Abdominal: General: There is no distension. Palpations: Abdomen is soft. Tenderness: There is no abdominal tenderness. Musculoskeletal: General: Normal range of motion. Cervical back: Normal range of motion. Skin: General: Skin is warm and dry. Findings: No erythema or rash. Neurological: General: No focal deficit present. Mental Status: She is alert and oriented to person, place, and time. Mental status is at baseline. Psychiatric: Mood and Affect: Mood normal. Behavior: Behavior normal. Thought Content: Thought content normal. Judgment: Judgment normal. DATA: Labs: WBC (k/uL) Date Value 10/20/2024 5.24 RBC (m/uL) Date Value 10/20/2024 4.65 Hemoglobin (g/dL) Date Value 10/20/2024 12.4 Hematocrit (%) Date Value 10/20/2024 39.3 MCV (fL) Date Value 10/20/2024 84.5 MCH (pg) Date Value 10/20/2024 26.7 MCHC (g/dL) Date Value 10/20/2024 31.6 RDW-CV (%) Date Value 10/20/2024 17.3 (H) Platelet Count (k/uL) Date Value 10/20/2024 200 MPV (fL) Date Value 10/20/2024 10.4 Glucose (mg/dL) Date Value 09/24/2024 88 BUN (mg/dL) Date Value 09/24/2024 16 Creatinine (mg/dL) Date Value 09/24/2024 0.97 (H) Sodium (mmol/L) Date Value 09/24/2024 139 Potassium (mmol/L) Date Value 09/24/2024 4.3 Chloride (mmol/L) Date Value 09/24/2024 106 CO2 (mmol/L) Date Value 09/24/2024 23 Protein, Total (g/dL) Date Value 09/24/2024 6.6 Albumin (g/dL) Date Value 09/24/2024 4.4 Calcium, Total (mg/dL) Date Value 09/24/2024 9.1 Alkaline Phosphatase (U/L) Date Value 09/24/2024 49 Bilirubin, Total (mg/dL) Date Value 09/24/2024 0.5 AST (U/L) Date Value 09/24/2024 18 ALT (U/L) Date Value 09/24/2024 10 Images: MRI Date of Test: 10/09/2024 IMPRESSION: Stable subcentimeter cystic pancreatic foci.(Largest 6mm) No worrisome features. Likely IPMN. Follow-up could be performed in 2 years Stable biopsy-proven benign right hepatic lesion. No developing hepatic mass Images were personally reviewed and interpreted. Pathology Report: 02/12/2022: FINAL DIAGNOSIS A. Liver mass, core biopsies: - Fragments of benign hepatic parenchyma and fragments of hyalinized and sclerotic tissue with necrosis and calcification. GMS stain is negative for fungal organisms. See comment. Assessment/Plan Ms. Mishra is a 44 year old female with stable pancreatic cystic lesions and known benign liver lesion. -MRI Pancreas in 2 years Opal Smith MD [id number] 11/03/2024 [facility] 11-03-2024 History and physical note Images from the original note were not included. Opal Smith MD Surgical Oncology [address] [facility], [address] [place] [address] Name: Estefani Mishra Age: [age] year old Sex: Estefani Mishra : 1980 Referring Provider: No ref. provider found Subjective CHIEF COMPLAINT: Pancreatic cyst HISTORY OF PRESENT ILLNESS: Ms. Mishra is a 44 year old female who presents for management of pancreatic cystic lesions. In 2021 she was following with GI and was found on imaging to have a liver mass and pancreatic cyst. The liver mass was biopsied and found to be benign. She was recommended to have surveillance imaging with MRCP but was delayed in getting it. She recently had a repeat MRI which again demonstrated these lesions. Reports no symptoms. Denies abdominal pain, nausea, or vomiting. PAST MEDICAL HISTORY Diagnosis Date Adenomatous colon polyp Anemia DURING COLLEGE Female infertility of unspecified origin Female infertility Female stress incontinence Liver function study, abnormal BENIGN CALCIFICATION OF LIVER Mass of pancreas 2021 PAST SURGICAL HISTORY Procedure Laterality Date COLONOSCOPY 07/27/2021 Dr. Morgan, Polyp, repeat 5 years EGD 07/27/2021 Dr Morgan, Normal LIVER BIOPSY 02/12/2022 no evidence of atypia or malignancy Current Outpatient Medications on File Prior to Visit Medication Sig Magnesium 200 mg tab Lactobacillus acidophilus (PROBIOTIC ACIDOPHILUS ORAL) Take by mouth. ascorbic acid, vitamin C, (VITAMIN C) 125 mg chew psyllium seed, with dextrose, (FIBER SUPPLEMENT ORAL) Take by mouth. Multivitamin capsule Take 1 capsule by mouth once daily. FERROUS SULFATE (IRON ORAL) Take by mouth. No current facility-administered medications on file prior to visit. ALLERGIES No Known Allergies FAMILY HISTORY Problem Relation Age of Onset Breast Cancer Mother Hypertension Mother other (Gallbladder Disease) Mother Gallbladder Removed Heart Father valve replacement Skin Cancer Father Hyperlipidemia Father No Known Problems Sister Breast Cancer Maternal Grandmother Aneurysm Maternal Grandfather stomach Heart Paternal Grandmother Cancer Paternal Grandfather No Known Problems Daughter No Known Problems Son Pancreatic Cancer Maternal Uncle Colon Cancer No Family History Social History Tobacco Use Smoking status: Never Passive exposure: Never Smokeless tobacco: Never Vaping Use Vaping status: Never Used Substance Use Topics Alcohol use: Yes Comment: Seldom,NOT WHILE Drug use: No I personally reviewed Tobacco Allergies Meds Problems Med Hx Surg Hx Fam Hx Objective PHYSICAL EXAM: BP 118/76 Ht 5' 6 (1.68m) Wt 168 lb (76.2kg) LMP 08/09/2024 BMI 27.13 kg/(m^2). Physical Exam Constitutional: General: She is not in acute distress. Appearance: Normal appearance. HENT: Head: Normocephalic and atraumatic. Eyes: Extraocular Movements: Extraocular movements intact. Conjunctiva/sclera: Conjunctivae normal. Cardiovascular: Rate and Rhythm: Normal rate. Pulses: Normal pulses. Pulmonary: Effort: Pulmonary effort is normal. No respiratory distress. Breath sounds: No stridor. Abdominal: General: There is no distension. Palpations: Abdomen is soft. Tenderness: There is no abdominal tenderness. Musculoskeletal: General: Normal range of motion. Cervical back: Normal range of motion. Skin: General: Skin is warm and dry. Findings: No erythema or rash. Neurological: General: No focal deficit present. Mental Status: She is alert and oriented to person, place, and time. Mental status is at baseline. Psychiatric: Mood and Affect: Mood normal. Behavior: Behavior normal. Thought Content: Thought content normal. Judgment: Judgment normal. DATA: Labs: WBC (k/uL) Date Value 10/20/2024 5.24 RBC (m/uL) Date Value 10/20/2024 4.65 Hemoglobin (g/dL) Date Value 10/20/2024 12.4 Hematocrit (%) Date Value 10/20/2024 39.3 MCV (fL) Date Value 10/20/2024 84.5 MCH (pg) Date Value 10/20/2024 26.7 MCHC (g/dL) Date Value 10/20/2024 31.6 RDW-CV (%) Date Value 10/20/2024 17.3 (H) Platelet Count (k/uL) Date Value 10/20/2024 200 MPV (fL) Date Value 10/20/2024 10.4 Glucose (mg/dL) Date Value 09/24/2024 88 BUN (mg/dL) Date Value 09/24/2024 16 Creatinine (mg/dL) Date Value 09/24/2024 0.97 (H) Sodium (mmol/L) Date Value 09/24/2024 139 Potassium (mmol/L) Date Value 09/24/2024 4.3 Chloride (mmol/L) Date Value 09/24/2024 106 CO2 (mmol/L) Date Value 09/24/2024 23 Protein, Total (g/dL) Date Value 09/24/2024 6.6 Albumin (g/dL) Date Value 09/24/2024 4.4 Calcium, Total (mg/dL) Date Value 09/24/2024 9.1 Alkaline Phosphatase (U/L) Date Value 09/24/2024 49 Bilirubin, Total (mg/dL) Date Value 09/24/2024 0.5 AST (U/L) Date Value 09/24/2024 18 ALT (U/L) Date Value 09/24/2024 10 Images: MRI Date of Test: 10/09/2024 IMPRESSION: Stable subcentimeter cystic pancreatic foci.(Largest 6mm) No worrisome features. Likely IPMN. Follow-up could be performed in 2 years Stable biopsy-proven benign right hepatic lesion. No developing hepatic mass Images were personally reviewed and interpreted. Pathology Report: 02/12/2022: FINAL DIAGNOSIS A. Liver mass, core biopsies: - Fragments of benign hepatic parenchyma and fragments of hyalinized and sclerotic tissue with necrosis and calcification. GMS stain is negative for fungal organisms. See comment. Assessment/Plan Ms. Mishra is a 44 year old female with stable pancreatic cystic lesions and known benign liver lesion. -MRI Pancreas in 2 years Opal Smith MD 0850 11/03/2024 documented in this encounter [facility] 11-02-2024 Note HNO ID: [id number] Author: TAI MOORE, ? Service: ? Author Type: Physician Type: Progress Notes Filed: 11/02/2024 18:28 Note Text: Consultation requested by Dr. Rainey for an opinion regarding left foot pain. My final recommendations will be communicated back to the requesting physician by way of shared Medical record or letter to requesting physician via [place] mail. Initial Podiatric Office Visit: Chief Complaint: This 44 year old female who presents with chief complaint:left foot pain/possible neuroma HPI Patient presents to clinic for evaluation of left foot Pateint states the pain in left foot first started last sprin/summer Went to see Dr. Campbell in April and was given metatarsal pads and a steroid injection of left foot, unknown interspace The injection helped to resolve her pain for nearly 5 months The pain is slowly returning. Patient states currently the pain is 3-4/10. Does nothing for the pain currently. Patient states the pain is worse whenever barefoot. PAIN EVALUATION 11/02/2024 1411 Pain Level: 2 Pain Location: Foot-Left Description: Aching;Burning Duration Amount of Time: 2 Duration Units: Months Frequency: Intermittent Intervention/Comfort measure: Relaxation;Reposition;Medication No results found for: HBA1C PCP: Lina Rainey, TYING MACHINE OPERATOR.RESIDENTIAL APPRAISER PAST MEDICAL HISTORY Diagnosis Date Adenomatous colon polyp Anemia DURING COLLEGE Female infertility of unspecified origin Female infertility Female stress incontinence Liver function study, abnormal BENIGN CALCIFICATION OF LIVER Mass of pancreas 2021 Current Outpatient Medications Medication Sig Magnesium 200 mg tab Lactobacillus acidophilus (PROBIOTIC ACIDOPHILUS ORAL) Take by mouth. ascorbic acid, vitamin C, (VITAMIN C) 125 mg chew psyllium seed, with dextrose, (FIBER SUPPLEMENT ORAL) Take by mouth. Multivitamin capsule Take 1 capsule by mouth once daily. FERROUS SULFATE (IRON ORAL) Take by mouth. No current facility-administered medications for this visit. ALLERGIES No Known Allergies PAST SURGICAL HISTORY Procedure Laterality Date COLONOSCOPY 07/27/2021 Dr. Morgan, Polyp, repeat 5 years EGD 07/27/2021 Dr Morgan, Normal LIVER BIOPSY 02/12/2022 no evidence of atypia or malignancy FAMILY HISTORY Problem Relation Age of Onset Breast Cancer Mother Hypertension Mother other (Gallbladder Disease) Mother Gallbladder Removed Heart Father valve replacement Skin Cancer Father Hyperlipidemia Father No Known Problems Sister Breast Cancer Maternal Grandmother Aneurysm Maternal Grandfather stomach Heart Paternal Grandmother Cancer Paternal Grandfather No Known Problems Daughter No Known Problems Son Pancreatic Cancer Maternal Uncle Colon Cancer No Family History Social History Tobacco Use Smoking status: Never Passive exposure: Never Smokeless tobacco: Never Vaping Use Vaping status: Never Used Substance Use Topics Alcohol use: Yes Comment: Seldom,NOT WHILE Drug use: No REVIEW OF SYSTEMS GENERAL: Negative for Malaise, significant weight loss, fever RESPIRATORY: Negative for cough, wheezing and shortness of breath CARDIOVASCULAR: Negative for chest pain, leg swelling and palpitations GI: Negative for abdominal discomfort, blood in stools or black stools and change in bowel habits : Negative for dysuria, frequency and incontinence MUSCULOSKELETAL: Negative for joint pain or swelling, back pain, and muscle pain. SKIN: Negative for lesions, rash, and itching. HEMATOLOGY/LYMPHOLOGY Negative for prolonged bleeding, bruising easily, and swollen nodes. ENDOCRINE: Negative for cold or heat intolerance, polyuria, polydipsia and goiter. NEURO: negative Physical Exam: Constitutional: Pt is a well developed 44 year old female who is alert, oriented and cooperative Eyes: Following during examination. No redness or drainage. Respiratory: RR normal and nonlabored. Even breathing. No evidence of distress or shortness of breath. Psychology: Patient is engaged during conversation. Normal affect and mood. Does not appear depressed or anxious during encounter. Vascular: Dorsalis pedis and posterior tibial pulses palpable as b/l Capillary Fill time < 5 seconds to digits 1-5 b/l Skin temperature warm to warm proximal to distal b/l Hair growth present to digits Neurological: intact light touch/epicritic sensation + eladia click of left 3rd interspace intact protective sensation no significant neurological deficits Dermatological: Right great toenail is dystrophic. Webspaces clean and dry 1-4 b/l. Skin appears well hydrated and supple. good color, texture, turgor. No open lesions present. No callosities present. Musculoskeletal/Orthopaedic: Patient has no pain to palpation of left foot Foot type is neutral structurally AJ ROM is full with knee extended and flexed 1st MPJ is full when loaded and no pain or crep (more content not included)... [facility] 11-02-2024 History of Presen t illness Narrative Consultation requested by Dr. Rainey for an opinion regarding left foot pain. My final recommendations will be communicated back to the requesting physician by way of shared Medical record or letter to requesting physician via [place] mail. Initial Podiatric Office Visit: Chief Complaint: This 44 year old female who presents with chief complaint:left foot pain/possible neuroma HPI Patient presents to clinic for evaluation of left foot Pateint states the pain in left foot first started last sprin/summer Went to see Dr. Campbell in April and was given metatarsal pads and a steroid injection of left foot, unknown interspace The injection helped to resolve her pain for nearly 5 months The pain is slowly returning. Patient states currently the pain is 3-4/10. Does nothing for the pain currently. Patient states the pain is worse whenever barefoot. PAIN EVALUATION 11/02/2024 1411 Pain Level: 2 Pain Location: Foot-Left Description: Aching;Burning Duration Amount of Time: 2 Duration Units: Months Frequency: Intermittent Intervention/Comfort measure: Relaxation;Reposition;Medication No results found for: HBA1C PCP: Lina Rainey, JEN.RESIDENTIAL APPRAISER PAST MEDICAL HISTORY Diagnosis Date Adenomatous colon polyp Anemia DURING COLLEGE Female infertility of unspecified origin Female infertility Female stress incontinence Liver function study, abnormal BENIGN CALCIFICATION OF LIVER Mass of pancreas 2021 Current Outpatient Medications Medication Sig Magnesium 200 mg tab Lactobacillus acidophilus (PROBIOTIC ACIDOPHILUS ORAL) Take by mouth. ascorbic acid, vitamin C, (VITAMIN C) 125 mg chew psyllium seed, with dextrose, (FIBER SUPPLEMENT ORAL) Take by mouth. Multivitamin capsule Take 1 capsule by mouth once daily. FERROUS SULFATE (IRON ORAL) Take by mouth. No current facility-administered medications for this visit. ALLERGIES No Known Allergies PAST SURGICAL HISTORY Procedure Laterality Date COLONOSCOPY 07/27/2021 Dr. Morgan, Polyp, repeat 5 years EGD 07/27/2021 Dr Morgan, Normal LIVER BIOPSY 02/12/2022 no evidence of atypia or malignancy FAMILY HISTORY Problem Relation Age of Onset Breast Cancer Mother Hypertension Mother other (Gallbladder Disease) Mother Gallbladder Removed Heart Father valve replacement Skin Cancer Father Hyperlipidemia Father No Known Problems Sister Breast Cancer Maternal Grandmother Aneurysm Maternal Grandfather stomach Heart Paternal Grandmother Cancer Paternal Grandfather No Known Problems Daughter No Known Problems Son Pancreatic Cancer Maternal Uncle Colon Cancer No Family History Social History Tobacco Use Smoking status: Never Passive exposure: Never Smokeless tobacco: Never Vaping Use Vaping status: Never Used Substance Use Topics Alcohol use: Yes Comment: Seldom,NOT WHILE Drug use: No REVIEW OF SYSTEMS GENERAL: Negative for Malaise, significant weight loss, fever RESPIRATORY: Negative for cough, wheezing and shortness of breath CARDIOVASCULAR: Negative for chest pain, leg swelling and palpitations GI: Negative for abdominal discomfort, blood in stools or black stools and change in bowel habits : Negative for dysuria, frequency and incontinence MUSCULOSKELETAL: Negative for joint pain or swelling, back pain, and muscle pain. SKIN: Negative for lesions, rash, and itching. HEMATOLOGY/LYMPHOLOGY Negative for prolonged bleeding, bruising easily, and swollen nodes. ENDOCRINE: Negative for cold or heat intolerance, polyuria, polydipsia and goiter. NEURO: negative Physical Exam: Constitutional: Pt is a well developed 44 year old female who is alert, oriented and cooperative Eyes: Following during examination. No redness or drainage. Respiratory: RR normal and nonlabored. Even breathing. No evidence of distress or shortness of breath. Psychology: Patient is engaged during conversation. Normal affect and mood. Does not appear depressed or anxious during encounter. Vascular: Dorsalis pedis and posterior tibial pulses palpable as b/l Capillary Fill time < 5 seconds to digits 1-5 b/l Skin temperature warm to warm proximal to distal b/l Hair growth present to digits Neurological: intact light touch/epicritic sensation + eladia click of left 3rd interspace intact protective sensation no significant neurological deficits Dermatological: Right great toenail is dystrophic. Webspaces clean and dry 1-4 b/l. Skin appears well hydrated and supple. good color, texture, turgor. No open lesions present. No callosities present. Musculoskeletal/Orthopaedic: Patient has no pain to palpation of left foot Foot type is neutral structurally AJ ROM is full with knee extended and flexed 1st MPJ is full when loaded and no pain or crepitus are noted with ROM. MTJ, STJ are full and free of pain and crepitus. 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 History and physical examination performed. 2. XR reviewed with patient and interpreted today 3. Discussed possible neuroma of left 3rd interspace. Has no pain. Would continue with inserts. If pain returns, consider repeat injection. Other options discussed include obtaining ultrasound. For now, patient is going to monitor 4. Discussed dystrophic nail of right hallux. Has no pain. Options discussed include keeping nail filed vs performing nail removal. Patient is going to monitor Tai Moore DPM Podiatry [address] [facility] [address] Dept: [phone] Dept AMB ROOMING INTAKE FLOWSHEET DATA Pain Pain Level: 2 Pain Location: Foot-Left Description: Aching, Burning Duration Amount of Time: 2 Duration Units: Months Frequency: Intermittent Intervention/Comfort measure: Relaxation, Reposition, Medication Patient presents with: Left Foot - Mass, New, Pain Nunu Ng LPN documented in this encounter [facility] 11-02-2024 Note HNO ID: [id number] Author: NUNU NG LPN Service: ? Author Type: LICENSED NURSE Type: Progress Notes Filed: 11/02/2024 18:28 Note Text: AMB ROOMING INTAKE FLOWSHEET DATA Pain Pain Level: 2 Pain Location: Foot-Left Description: Aching, Burning Duration Amount of Time: 2 Duration Units: Months Frequency: Intermittent Intervention/Comfort measure: Relaxation, Reposition, Medication Patient presents with: Left Foot - Mass, New, Pain Nunu Ng LPN [facility] 11-02-2024 History of Presen t illness Narrative Radiology Service Progress Note PATIENT NAME: Estefani Mishra DATE OF SERVICE: November 02, 2024 TIME: 9:26 PM PATIENT IDENTITY VERIFICATION COMPLETED USING TWO (2) IDENTIFIERS: Name and Date of confirmed by patient verbally. FALL SCREENING: Has the patient had 2 falls in the last year or 1 fall with injury or currently using an Ambulatory Assistive Device (Walker, Cane, Wheelchair, Crutches, etc.)? No PATIENT GENDER DATA: Assigned female at . status: : No status: NO. PATIENT RELEVANT IMPLANT DATA REVIEWED: Not Applicable PATIENT PRESENTS WITH AN IMPLANTABLE OR ATTACHED EMERGENCY ROOM PHYSICIAN: No RADIOLOGY DEPARTMENT: General X-ray: Exam(s) Completed: Lower Extremity X-Ray(s): Foot, Left and Wt. Bearing PERIPHERAL IV DATA: Not applicable SIGNED BY: RT Kevan(R) November 02, 2024 9:26 PM documented in this encounter [facility] 11-02-2024 Note HNO ID: [id number] Author: VIVIENNE MARR RT(R) Service: ? Author Type: Technologist Type: Progress Notes Filed: 11/02/2024 21:26 Note Text: Radiology Service Progress Note PATIENT NAME: Estefani Mishra DATE OF SERVICE: November 02, 2024 TIME: 9:26 PM PATIENT IDENTITY VERIFICATION COMPLETED USING TWO (2) IDENTIFIERS: Name and Date of confirmed by patient verbally. FALL SCREENING: Has the patient had 2 falls in the last year or 1 fall with injury or currently using an Ambulatory Assistive Device (Walker, Cane, Wheelchair, Crutches, etc.)? No PATIENT GENDER DATA: Assigned female at . status: : No status: NO. PATIENT RELEVANT IMPLANT DATA REVIEWED: Not Applicable PATIENT PRESENTS WITH AN IMPLANTABLE OR ATTACHED EMERGENCY ROOM PHYSICIAN: No RADIOLOGY DEPARTMENT: General X-ray: Exam(s) Completed: Lower Extremity X-Ray(s): Foot, Left and Wt. Bearing PERIPHERAL IV DATA: Not applicable SIGNED BY: RT Kevan(R) November 02, 2024 9:26 PM [facility] 10-16-2024 Miscellaneous Notes ----- Message from Pepe Peña MA sent at 09/25/2024 7:16 AM EST ----- Labs are normal besides mild low blood counts Recheck in 2-4 weeks documented in this encounter [facility] 10-16-2024 Telephone encounter Note ----- Message from Pepe Peña MA sent at 09/25/2024 7:16 AM EST ----- Labs are normal besides mild low blood counts Recheck in 2-4 weeks [facility] 10-13-2024 Note Addended by: LINA RAINEY on: 10/13/2024 11:58 AM Modules accepted: Orders [facility] 10-13-2024 Miscellaneous Notes Addended by: LINA RAINEY on: 10/13/2024 11:58 AM Modules accepted: Orders Addended by: LINA RAINEY on: 10/13/2024 11:29 AM Modules accepted: Orders documented in this encounter [facility] 10-13-2024 Note Addended by: LINA RAINEY on: 10/13/2024 11:29 AM Modules accepted: Orders [facility] 10-09-2024 History of Presen t illness Narrative Radiology Service Progress Note DATE OF SERVICE: October 09, 2024 TIME: 8:51 AM PATIENT IDENTITY VERIFICATION COMPLETED USING TWO (2) STANDARD IDENTIFIERS: Name and Date of confirmed by patient verbally. FALL SCREENING: Has the patient had 2 falls in the last year or 1 fall with injury or currently using an Ambulatory Assistive Device (Walker, Cane, Wheelchair, Crutches, etc.)? No PATIENT GENDER DATA: Female. status: : No status: NO. PATIENT RELEVANT IMPLANT DATA REVIEWED: Yes PATIENT PRESENTS WITH AN IMPLANTABLE OR ATTACHED EMERGENCY ROOM PHYSICIAN: No ALLERGIES: Reviewed and unchanged CONTRAST ALLERGY: NO. EXAM: MRI - CONTRAST TYPE: GROUP II PERIPHERAL IV DATA: Ambulatory: A peripheral IV was started in the Right antecubital site with a Angio cath: 22 gauge. RADIOLOGY DEPARTMENT: MR; Exam(s) Completed: Body: Pancreas/Biliary SIGNATURE: RT Travis(Tiffanie) PATIENT NAME: Estefani Mishra DATE: October 09, 2024 TIME: 8:51 AM documented in this encounter [facility] 10-09-2024 Note HNO ID: [id number] Author: RINA ALTAMIRANO RT(R) Service: ? Author Type: Technologist Type: Progress Notes Filed: 10/09/2024 08:51 Note Text: Radiology Service Progress Note DATE OF SERVICE: October 09, 2024 TIME: 8:51 AM PATIENT IDENTITY VERIFICATION COMPLETED USING TWO (2) STANDARD IDENTIFIERS: Name and Date of confirmed by patient verbally. FALL SCREENING: Has the patient had 2 falls in the last year or 1 fall with injury or currently using an Ambulatory Assistive Device (Walker, Cane, Wheelchair, Crutches, etc.)? No PATIENT GENDER DATA: Female. status: : No status: NO. PATIENT RELEVANT IMPLANT DATA REVIEWED: Yes PATIENT PRESENTS WITH AN IMPLANTABLE OR ATTACHED EMERGENCY ROOM PHYSICIAN: No ALLERGIES: Reviewed and unchanged CONTRAST ALLERGY: NO. EXAM: MRI - CONTRAST TYPE: GROUP II PERIPHERAL IV DATA: Ambulatory: A peripheral IV was started in the Right antecubital site with a Angio cath: 22 gauge. RADIOLOGY DEPARTMENT: MR; Exam(s) Completed: Body: Pancreas/Biliary SIGNATURE: RT Travis(R) PATIENT NAME: Estefani Mishra DATE: October 09, 2024 TIME: 8:51 AM [facility] 09-25-2024 Telephone encounter Note Patient received her my chart message. Pepe Guadalupe MA [facility] 09-25-2024 Miscellaneous Notes Patient received her my chart message. Pepe Guadalupe MA Reminder placed. Pepe Guadalupe MA Labs are normal besides mild low blood counts Recheck in 2-4 weeks, please add reminder. Lina Rainey APRN.RESIDENTIAL APPRAISER documented in this encounter [facility] 09-25-2024 Telephone encounter Note Reminder placed. Pepe Guadalupe MA [facility] 09-24-2024 Telephone encounter Note Labs are normal besides mild low blood counts Recheck in 2-4 weeks, please add reminder. Lina Rainey APRN.RESIDENTIAL APPRAISER [facility] 09-24-2024 Telephone encounter Note Hyperlipidemia added to family history. Anya Taveras MA [facility] 09-24-2024 Miscellaneous Notes Hyperlipidemia added to family history. Anya Taveras MA documented in this encounter [facility] 09-22-2024 Note HNO ID: [id number] Author: PEPE GUADALUPE MA Service: ? Author Type: Arc Cutter Plasma Arc Type: Progress Notes Filed: 09/23/2024 12:47 Note Text: Pt. Given flu shot with no complaints. Vis given. Pepe Guadalupe MA [facility] 09-22-2024 History of Presen t illness Narrative Pt. Given flu shot with no complaints. Vis given. Pepe Guadalupe MA Subjective Estefani Mishra is a 43 year old female here today for establish care. I reviewed past medical, surgical, social, and family histories today and updated chart. Allergies, chronic medications, and supplements were also reviewed. 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 Liver biopsy done February 2022 - no evidence of atypia or malignancy seen scarred tissue/calcifications GI's plan was for MRCP in 6 months, she had forgotten about it Patient was having abdominal pain and bowel changes in 2020, thought is was from stress She saw [facility] - had EGD and colonoscopy done July 2021, had colon polyp and will be due for repeat next year Overall stomach has been better Will take dicyclomine Rx randomly for pain that is persistent, usually end of the day and in the morning feels better Knows she needs to take her daily fiber Follows gluten free mostly due to being GF Right foot pain - started in the fall, blood work done and it was normal Diagnosed with neuroma and had cortisone shot around April Got worse in August Burning severe pain at bedtime She donates blood on a regular basis PAST MEDICAL HISTORY Diagnosis Date Adenomatous colon polyp Anemia DURING COLLEGE Female infertility of unspecified origin Female infertility Liver function study, abnormal BENIGN CALCIFICATION OF LIVER Transient hypertension of , unspecified as to episode of care PAST SURGICAL HISTORY Procedure Laterality Date COLONOSCOPY GEN ANES 07/27/2021 EGD 07/27/2021 NONE ALLERGIES Patient has no known allergies. MEDICATIONS Magnesium 200 mg tab Lactobacillus acidophilus (PROBIOTIC ACIDOPHILUS ORAL) Take by mouth. ascorbic acid, vitamin C, (VITAMIN C) 125 mg chew psyllium seed, with dextrose, (FIBER SUPPLEMENT ORAL) Take by mouth. Multivitamin capsule Take 1 capsule by mouth once daily. FERROUS SULFATE (IRON ORAL) Take by mouth. FAMILY HISTORY Problem Relation Age of Onset Breast Cancer Mother Hypertension Mother other (Gallbladder Disease) Mother Gallbladder Removed Heart Father valve replacement Breast Cancer Maternal Grandmother Aneurysm Maternal Grandfather stomach Heart Paternal Grandmother Cancer Paternal Grandfather Pancreatic Cancer Maternal Uncle Colon Cancer No Family History Social History Tobacco Use Smoking status: Never Passive exposure: Never Smokeless tobacco: Never Vaping Use Vaping status: Never Used Substance Use Topics Alcohol use: Yes Comment: Seldom,NOT WHILE Drug use: No Review of Systems Constitutional: Positive for diaphoresis. Negative for appetite change, chills, fatigue, fever and unexpected weight change. Feels like she is in perimenopause Sees [employer] Periods are irregular, cycles 19-60 days No regular night sweats - just a time or two Weight does fluctuate Works out every day 40 min Rarely skips a meal HENT: Negative for congestion, ear pain, rhinorrhea and sore throat. Eyes: Negative for pain, discharge, itching and visual disturbance. Respiratory: Negative for cough, shortness of breath and wheezing. Recent respiratory virus - getting better finally Took claritin for a few days and this did help Cardiovascular: Negative for chest pain, palpitations and leg swelling. Gastrointestinal: Positive for abdominal pain. Negative for blood in stool, constipation, diarrhea, nausea and vomiting. Not completely regular, does not have BM every day Can go 2-3 days without Occasional heart burn Genitourinary: Occasional stress incontinence - jumping/coughing Musculoskeletal: Positive for arthralgias (hips). Skin: Negative for rash. Allergic/Immunologic: Negative for environmental allergies. Neurological: Positive for headaches (occasionally). Negative for dizziness, tremors and weakness. Psychiatric/Behavioral: Negative for dysphoric mood and sleep disturbance. The patient is not nervous/anxious. Objective BP 106/78 Pulse 62 Temp 98.2 Ht 5' 6.5 (1.69m) Wt 170 lb (77.1kg) SpO2 100% LMP 08/09/2024 BMI 27.03 kg/(m^2). Physical Exam Constitutional: General: She is not in acute distress. Appearance: Normal appearance. She is not toxic-appearing. HENT: Head: Normocephalic and atraumatic. Mouth/Throat: Lips: [place]. Mouth: Mucous membranes are moist. Pharynx: Oropharynx is clear. Eyes: General: Lids are normal. No scleral icterus. Extraocular Movements: Extraocular movements intact. Conjunctiva/sclera: Conjunctivae normal. Pupils: Pupils are equal. Cardiovascular: Rate and Rhythm: Normal rate and regular rhythm. Heart sounds: Normal heart sounds. No murmur heard. Pulmonary: Effort: Pulmonary effort is normal. No respiratory distress. Breath sounds: Normal breath sounds. No wheezing or rales. Abdominal: General: Bowel sounds are normal. There is no distension or abdominal bruit. Palpations: Abdomen is soft. There is no hepatomegaly, splenomegaly or mass. Tenderness: There is no abdominal tenderness. There is no right CVA tenderness or left CVA tenderness. Comments: Slight firmness over RUQ Musculoskeletal: Cervical back: Normal range of motion. Right lower leg: No edema. Left lower leg: No edema. Skin: General: Skin is warm and dry. Findings: No bruising or rash. Neurological: General: No focal deficit present. Mental Status: She is alert and oriented to person, place, and time. Cranial Nerves: No cranial nerve deficit. Sensory: Sensation is intact. Motor: Motor function is intact. Coordination: Coordination is intact. Coordination normal. Gait: Gait is intact. Psychiatric: Attention and Perception: Attention and perception normal. Mood and Affect: Mood and affect normal. Speech: Speech normal. Behavior: Behavior normal. Behavior is cooperative. Thought Content: Thought content normal. 08/08/2022 11:28 AM - MRI abd Component Performing Lab Radiology Result (Actionable) (Final) CCRAD ACTIONABLE Comment: This report contains an incidental or actionable finding. This finding may be a new finding separate from the reason your provider ordered the imaging test or it may be an already known finding that needs additional or continued follow-up. Because of this incidental or actionable finding, you may need another test (imaging or a different type of test). Please contact your provider for the next steps. 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 STABLE NON-ENHANCING HEPATIC MASS. ACTIONABLE RESULT: FOLLOW-UP Acuity: Actionable Findings: Pancreas/Biliary Routing Code: PB_1 Recommendation: MRI PANCREAS/BILIARY WO/W IV CONTRAST Time Frame: In one year. COMMUNICATION: Results will be communicated with the ordering provider via [employer] staff message or phone message by [facility] Support Services within 2 business days of report finalization. ==== Grader Patrol: PSCB Transcribe Date/Time: Aug 08 2022 11:18A Dictated by : POLO CABRERA MD This examination was interpreted and the report reviewed and electronically signed by: POLO CABRERA MD on Aug 08 2022 11:26AM EST Results-Findings * * *Final Report* * * DATE OF EXAM: Aug 07 2022 10:23AM [facility] 0730 - MRI PANC/BLAYNE WO/W IVCON / PROCEDURE REASON: Pancreatic cyst * * * * Physician Interpretation * * * * MRI OF THE ABDOMEN WITHOUT AND WITH CONTRAST: CLINICAL HISTORY: Pancreatic cyst COMPARISON: MR 01/11/2022 TECHNIQUE: The study was performed on a 1.5 T scanner using the torso phased array coil. HASTE images were obtained in the axial, sagittal and coronal planes. High resolution 3-D T2 weighted images were then obtained. Next, axial STIR, diffusion weighted and T1 weighted in- and [id number] images were obtained. Then, using a 3-D GRE T1 weighted sequence, dynamic images were obtained before, during and after the administration of intravenous contrast. 3-D images were post-processed on a dedicated off-line workstation and were reviewed by the interpreting physician. Contrast: IV: 15 ml of Dotarem Oral Contrast: None RESULT: Pancreas: Stable HASTE high signal pancreatic tail mass about 0.7 cm in maximal diameter. No apparent contrast enhancement. The visualized portions of the pancreatic duct are normal. Biliary: There is no intrahepatic biliary dilation. The common bile duct is normal in course and caliber. No filling defects are identified within the common bile duct. The gallbladder is normal in appearance. Liver: Stable appearance of posterior RIGHT hepatic lobe nonenhancing mass 5.5 x 4.2 cm in axial dimensions. The lesion is predominantly HASTE hypointense and has mixed intermediate and low signal on T1 sequences. There are no focal hepatic lesions. There is no thrombus in the portal venous system (splenic vein, main portal vein, left and right anterior and right posterior portal vein branches). Kidneys: The visualized portions of the kidneys enhance symmetrically. There is no hydroureteronephrosis. There is no focal enhancing renal lesion. Other abdominal findings: The spleen is normal in size. There is no focal splenic mass. The adrenals are normal. There are no abnormal fluid collections. There is no lymphadenopathy. There is no ascites. Latest Ref Rng 12/21/2021 02/09/2022 WBC 3.70 - 11.00 k/uL 5.33 RBC 3.90 - 5.20 m/uL 4.22 Hemoglobin 11.5 - 15.5 g/dL 13.0 Hematocrit 36.0 - 46.0 % 38.2 MCV 80.0 - 100.0 fL 90.5 MCH 26.0 - 34.0 pg 30.8 MCHC 30.5 - 36.0 g/dL 34.0 RDW-CV 11.5 - 15.0 % 12.9 Platelet Count 150 - 400 k/uL 197 MPV 9.0 - 12.7 fL 9.8 Neut% % 58.3 Abs Neut (ANC) 1.45 - 7.50 k/uL 3.11 Lymph% % 33.0 Abs Lymph 1.00 - 4.00 k/uL 1.76 Crook% % 6.4 Abs Crook <0.87 k/uL 0.34 Eosin% % 1.3 Abs Eosin <0.46 k/uL 0.07 Baso% % 0.8 Abs Baso <0.11 k/uL 0.04 Immature Gran % % 0.2 IMMATURE GRANS (ABS) <0.10 k/uL <0.03 NRBC /100 WBC 0.0 Absolute nRBC <0.01 k/uL <0.01 DTYPE Auto Glucose 74 - 99 mg/dL 89 BUN 7 - 21 mg/dL 16 Creatinine 0.58 - 0.96 mg/dL 0.94 Sodium 136 - 144 mmol/L 142 Potassium 3.7 - 5.1 mmol/L 4.1 Chloride 97 - 105 mmol/L 104 CO2 22 - 30 mmol/L 26 Anion Gap 9 - 18 mmol/L 12 Calcium 8.5 - 10.2 mg/dL 8.5 eGFR >=60 mL/min/1.73m 77 ASSESSMENT/PLAN: 1. Calcified liver mass, right lobe - ICD9: 573.8, ICD10: R16.0 (primary diagnosis) Patient is due for recheck MRCP, orders placed She will schedule a follow-up with JESSICA - Gisella Godwin - MRI PANC/BLAYNE WO/W IVCON - MRI 3D POST PROCESSING - COMPLETE BLOOD COUNT - COMPREHENSIVE METABOLIC PANEL - LIPASE 2. Pancreatic mass - ICD9: 577.8, ICD10: K86.89 Patient is due for recheck MRCP, orders placed She will schedule a follow-up with GI - Gisella Godwin - MRI PANC/BLAYNE WO/W IVCON - MRI 3D POST PROCESSING - COMPLETE BLOOD COUNT - COMPREHENSIVE METABOLIC PANEL - LIPASE 3. Foot pain, right - ICD9: 729.5, ICD10: M79.671 - CONSULT TO PODIATRY 4. Neuroma of foot - ICD9: 215.3, ICD10: D36.13 - CONSULT TO PODIATRY 5. Screening for lipid disorders - ICD9: V77.91, ICD10: Z13.220 - LIPID PANEL BASIC 6. Skin exam for malignant neoplasm - ICD9: V76.43, ICD10: Z12.83 - CONSULT TO DERMATOLOGY 7. Family history of skin cancer - ICD9: V16.8, ICD10: Z80.8 - CONSULT TO DERMATOLOGY 8. Encounter for immunization - ICD9: V03.89, ICD10: Z23 - INFLUENZA VACCINE, AGE 6MO-64YR, TRIVALENT (AFLURIA, FLULAVAL, FLUVIRIN, FLUZONE) Lina Rainey APRN.RESIDENTIAL APPRAISER documented in this encounter [facility] 09-22-2024 Note HNO ID: [id number] Author: LINA RAINEY APRN.RESIDENTIAL APPRAISER Service: ? Author Type: Nurse Practitioner Type: Progress Notes Filed: 09/25/2024 12:21 Note Text: Glenn Mishra is a 43 year old female here today for establish care. I reviewed past medical, surgical, social, and family histories today and updated chart. Allergies, chronic medications, and supplements were also reviewed. 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 Liver biopsy done February 2022 - no evidence of atypia or malignancy seen scarred tissue/calcifications GI's plan was for MRCP in 6 months, she had forgotten about it Patient was having abdominal pain and bowel changes in 2020, thought is was from stress She saw [facility] - had EGD and colonoscopy done July 2021, had colon polyp and will be due for repeat next year Overall stomach has been better Will take dicyclomine Rx randomly for pain that is persistent, usually end of the day and in the morning feels better Knows she needs to take her daily fiber Follows gluten free mostly due to being GF Left foot pain - started in the fall, blood work done and it was normal Diagnosed with neuroma and had cortisone shot around April Got worse in August Burning severe pain at bedtime She donates blood on a regular basis PAST MEDICAL HISTORY Diagnosis Date Adenomatous colon polyp Anemia DURING COLLEGE Female infertility of unspecified origin Female infertility Liver function study, abnormal BENIGN CALCIFICATION OF LIVER Transient hypertension of , unspecified as to episode of care PAST SURGICAL HISTORY Procedure Laterality Date COLONOSCOPY GEN ANES 07/27/2021 EGD 07/27/2021 NONE ALLERGIES Patient has no known allergies. MEDICATIONS Magnesium 200 mg tab Lactobacillus acidophilus (PROBIOTIC ACIDOPHILUS ORAL) Take by mouth. ascorbic acid, vitamin C, (VITAMIN C) 125 mg chew psyllium seed, with dextrose, (FIBER SUPPLEMENT ORAL) Take by mouth. Multivitamin capsule Take 1 capsule by mouth once daily. FERROUS SULFATE (IRON ORAL) Take by mouth. FAMILY HISTORY Problem Relation Age of Onset Breast Cancer Mother Hypertension Mother other (Gallbladder Disease) Mother Gallbladder Removed Heart Father valve replacement Breast Cancer Maternal Grandmother Aneurysm Maternal Grandfather stomach Heart Paternal Grandmother Cancer Paternal Grandfather Pancreatic Cancer Maternal Uncle Colon Cancer No Family History Social History Tobacco Use Smoking status: Never Passive exposure: Never Smokeless tobacco: Never Vaping Use Vaping status: Never Used Substance Use Topics Alcohol use: Yes Comment: Seldom,NOT WHILE Drug use: No Review of Systems Constitutional: Positive for diaphoresis. Negative for appetite change, chills, fatigue, fever and unexpected weight change. Feels like she is in perimenopause Sees [employer] Periods are irregular, cycles 19-60 days No regular night sweats - just a time or two Weight does fluctuate Works out every day 40 min Rarely skips a meal HENT: Negative for congestion, ear pain, rhinorrhea and sore throat. Eyes: Negative for pain, discharge, itching and visual disturbance. Respiratory: Negative for cough, shortness of breath and wheezing. Recent respiratory virus - getting better finally Took claritin for a few days and this did help Cardiovascular: Negative for chest pain, palpitations and leg swelling. Gastrointestinal: Positive for abdominal pain. Negative for blood in stool, constipation, diarrhea, nausea and vomiting. Not completely regular, does not have BM every day Can go 2-3 days without Occasional heart burn Genitourinary: Occasional stress incontinence - jumping/coughing Musculoskeletal: Positive for arthralgias (hips). Skin: Negative for rash. Allergic/Immunologic: Negative for environmental allergies. Neurological: Positive for headaches (occasionally). Negative for dizziness, tremors and weakness. Psychiatric/Behavioral: Negative for dysphoric mood and sleep disturbance. The patient is not nervous/anxious. Objective BP 106/78 Pulse 62 Temp 98.2 Ht 5' 6.5 (1.69m) Wt 170 lb (77.1kg) SpO2 100% LMP 08/09/2024 BMI 27.03 kg/(m2). Physical Exam Constitutional: General: She is not in acute distress. Appearance: Normal appearance. She is not toxic-appearing. HENT: Head: Normocephalic and atraumatic. Mouth/Throat: Lips: [place]. Mouth: Mucous membranes are moist. Pharynx: Oropharynx is clear. Eyes: General: Lids are normal. No scleral icterus. Extraocular Movements: Extraocular movements intact. Conjunctiva/sclera: Conjunctivae normal. Pupils: Pupils are equal. Cardiovascular: Rate and Rhythm: Normal rate and regular rhythm. Heart sounds: (more content not included)... [facility] 09-08-2024 History of Presen t illness Narrative Radiology Service Progress Note PATIENT NAME: Estefani Mishra DATE OF SERVICE: September 08, 2024 TIME: 4:16 PM PATIENT IDENTITY VERIFICATION COMPLETED USING TWO (2) IDENTIFIERS: Name and Date of confirmed by patient verbally. FALL SCREENING: Has the patient had 2 falls in the last year or 1 fall with injury or currently using an Ambulatory Assistive Device (Walker, Cane, Wheelchair, Crutches, etc.)? No PATIENT GENDER DATA: Female. status: : No status: NO. PATIENT RELEVANT IMPLANT DATA REVIEWED: Not Applicable PATIENT PRESENTS WITH AN IMPLANTABLE OR ATTACHED EMERGENCY ROOM PHYSICIAN: No RADIOLOGY DEPARTMENT: General X-ray: Exam(s) Completed: Chest X-Ray PERIPHERAL IV DATA: Not applicable SIGNED BY: RT George(Tiffanie) September 08, 2024 4:16 PM documented in this encounter [facility] 09-08-2024 Note HNO ID: [id number] Author: YOUSUF SMITH RT(R) Service: Radiology Author Type: Technologist Type: Progress Notes Filed: 09/08/2024 16:21 Note Text: Radiology Service Progress Note PATIENT NAME: Estefani Mishra DATE OF SERVICE: September 08, 2024 TIME: 4:16 PM PATIENT IDENTITY VERIFICATION COMPLETED USING TWO (2) IDENTIFIERS: Name and Date of confirmed by patient verbally. FALL SCREENING: Has the patient had 2 falls in the last year or 1 fall with injury or currently using an Ambulatory Assistive Device (Walker, Cane, Wheelchair, Crutches, etc.)? No PATIENT GENDER DATA: Female. status: : No status: NO. PATIENT RELEVANT IMPLANT DATA REVIEWED: Not Applicable PATIENT PRESENTS WITH AN IMPLANTABLE OR ATTACHED EMERGENCY ROOM PHYSICIAN: No RADIOLOGY DEPARTMENT: General X-ray: Exam(s) Completed: Chest X-Ray PERIPHERAL IV DATA: Not applicable SIGNED BY: RT George(R) September 08, 2024 4:16 PM [facility] 09-08-2024 Note HNO ID: [id number] Author: SISI BARRIOS APRN.RESIDENTIAL APPRAISER Service: ? Author Type: Nurse Practitioner Type: Progress Notes Filed: 09/08/2024 16:55 Note Text: CC: Patient presents with: Cough: dry, head congestion and sob seen 08/23 no better HPI: Estefani Mishra is a 43 year old female who presents to the office with complaint of cough, nonproductive for 2 weeks. Symptoms are staying the same. Associated symptoms includes cough and dyspnea. Denies headache, body aches, fever, nausea, vomiting , and diarrhea. Treatments tried include nothing so far. with no relief of symptoms. Sick contacts: unknown. History of asthma, frequent episodes of bronchitis, chronic bronchitis, bronchiectasis or COPD: No Smoker: No Seasonal/environmental allergies: No The ROS is otherwise negative. The patient's pmh, medications, allergies, and past visits are reviewed. PHYSICAL EXAM: BP 136/88 Pulse 60 Temp 36.6 ?C (97.8 ?F) Resp 16 Wt 80.6 kg (177 lb 11.1 oz) LMP 08/09/2024 (Exact Date) SpO2 99% BMI 28.46 kg/m? General appearance: alert, cooperative, pleasant, in no acute distress Head: Normocephalic Eyes: EOM's intact, conjunctiva pink and moist, no icterus, sclera white, non-injected Ears: Right ear: External ear/canal- Normal, TM - clear with good landmarks. Left ear: External ear/canal- Normal, TM - clear with good landmarks Oropharynx:moist without lesions, No erythema, exudates or tonsillar hypertrophy. Mild cervical adenopathy Heart: Negative. RRR without obvious murmur, gallop, or rubs. No ectopy. Lungs: rhonchi right middle lobe PAST MEDICAL HISTORY Diagnosis Date Adenomatous colon polyp Anemia DURING COLLEGE Female infertility of unspecified origin Female infertility Liver function study, abnormal BENIGN CALCIFICATION OF LIVER Transient hypertension of , unspecified as to episode of care PAST SURGICAL HISTORY Procedure Laterality Date COLONOSCOPY GEN ANES 07/27/2021 EGD 07/27/2021 NONE ALLERGIES Patient has no known allergies. MEDICATIONS Magnesium 200 mg tab Lactobacillus acidophilus (PROBIOTIC ACIDOPHILUS ORAL) Take by mouth. ascorbic acid, vitamin C, (VITAMIN C) 125 mg chew psyllium seed, with dextrose, (FIBER SUPPLEMENT ORAL) Take by mouth. Multivitamin capsule Take 1 capsule by mouth once daily. FERROUS SULFATE (IRON ORAL) Take by mouth. FAMILY HISTORY Problem Relation Age of Onset Breast Cancer Mother Hypertension Mother other (Gallbladder Disease) Mother Gallbladder Removed Heart Father valve replacement Breast Cancer Maternal Grandmother Aneurysm Maternal Grandfather Heart Paternal Grandmother Cancer Paternal Grandfather Pancreatic Cancer Maternal Uncle Colon Cancer No Family History Social History Tobacco Use Smoking status: Never Passive exposure: Never Smokeless tobacco: Never Vaping Use Vaping status: Never Used Substance Use Topics Alcohol use: Yes Comment: Seldom,NOT WHILE Drug use: No ASSESSMENT/PLAN: 1. Acute cough - ICD9: 786.2, ICD10: R05.1 (primary diagnosis) - XR CHEST 2V FRONTAL/LAT * * * * Physician Interpretation * * * * EXAMINATION: CHEST RADIOGRAPH (2 VIEW FRONTAL AND LATERAL) CLINICAL HISTORY: Acute cough MQ: XC2_6 EXAM DATE/TIME: 09/08/2024 4:21 PM COMPARISON: Chest x-ray dated 08/16/2022 RESULT: Lines, tubes, and devices: None. Lungs and pleura: No consolidation. No lung mass. No pleural effusion. No pneumothorax. Cardiomediastinal silhouette: Normal cardiomediastinal silhouette. Bones and soft tissues: Redemonstration of a calcified right hepatic mass, a finding present dating back to at least December 2021. IMPRESSION IMPRESSION: No acute radiographic abnormality. Grader Patrol: DESIREE Transcribe Date/Time: Sep 08 2024 4:22P Dictated by : JAMIE ELLIS MD 2. Rhinosinusitis - ICD9: 473.9, ICD10: J32.9 - DOXYCYCLINE HYCLATE 100 MG TABLET Prescription instructions reviewed with patient as applicable. Potential red flag symptoms discussed with the patient. Reviewed appropriate action plan to take if red flag symptoms occur. Patient agreeable to treatment plan. Chest x-ray patient is not sure if she followed up with her MRI. Patient was going to get established with a primary care and ask about possible follow-up MRI. Sisi Barrios APRN.[facility] 09-08-2024 History of Presen t illness Narrative CC: Patient presents with: Cough: dry, head congestion and sob seen 08/23 no better HPI: Estefani Mishra is a 43 year old female who presents to the office with complaint of cough, nonproductive for 2 weeks. Symptoms are staying the same. Associated symptoms includes cough and dyspnea. Denies headache, body aches, fever, nausea, vomiting , and diarrhea. Treatments tried include nothing so far. with no relief of symptoms. Sick contacts: unknown. History of asthma, frequent episodes of bronchitis, chronic bronchitis, bronchiectasis or COPD: No Smoker: No Seasonal/environmental allergies: No The ROS is otherwise negative. The patient's pmh, medications, allergies, and past visits are reviewed. PHYSICAL EXAM: BP 136/88 Pulse 60 Temp 36.6 C (97.8 F) Resp 16 Wt 80.6 kg (177 lb 11.1 oz) LMP 08/09/2024 (Exact Date) SpO2 99% BMI 28.46 kg/m General appearance: alert, cooperative, pleasant, in no acute distress Head: Normocephalic Eyes: EOM's intact, conjunctiva pink and moist, no icterus, sclera white, non-injected Ears: Right ear: External ear/canal- Normal, TM - clear with good landmarks. Left ear: External ear/canal- Normal, TM - clear with good landmarks Oropharynx:moist without lesions, No erythema, exudates or tonsillar hypertrophy. Mild cervical adenopathy Heart: Negative. RRR without obvious murmur, gallop, or rubs. No ectopy. Lungs: rhonchi right middle lobe PAST MEDICAL HISTORY Diagnosis Date Adenomatous colon polyp Anemia DURING COLLEGE Female infertility of unspecified origin Female infertility Liver function study, abnormal BENIGN CALCIFICATION OF LIVER Transient hypertension of , unspecified as to episode of care PAST SURGICAL HISTORY Procedure Laterality Date COLONOSCOPY GEN ANES 07/27/2021 EGD 07/27/2021 NONE ALLERGIES Patient has no known allergies. MEDICATIONS Magnesium 200 mg tab Lactobacillus acidophilus (PROBIOTIC ACIDOPHILUS ORAL) Take by mouth. ascorbic acid, vitamin C, (VITAMIN C) 125 mg chew psyllium seed, with dextrose, (FIBER SUPPLEMENT ORAL) Take by mouth. Multivitamin capsule Take 1 capsule by mouth once daily. FERROUS SULFATE (IRON ORAL) Take by mouth. FAMILY HISTORY Problem Relation Age of Onset Breast Cancer Mother Hypertension Mother other (Gallbladder Disease) Mother Gallbladder Removed Heart Father valve replacement Breast Cancer Maternal Grandmother Aneurysm Maternal Grandfather Heart Paternal Grandmother Cancer Paternal Grandfather Pancreatic Cancer Maternal Uncle Colon Cancer No Family History Social History Tobacco Use Smoking status: Never Passive exposure: Never Smokeless tobacco: Never Vaping Use Vaping status: Never Used Substance Use Topics Alcohol use: Yes Comment: Seldom,NOT WHILE Drug use: No ASSESSMENT/PLAN: 1. Acute cough - ICD9: 786.2, ICD10: R05.1 (primary diagnosis) - XR CHEST 2V FRONTAL/LAT * * * * Physician Interpretation * * * * EXAMINATION: CHEST RADIOGRAPH (2 VIEW FRONTAL & LATERAL) CLINICAL HISTORY: Acute cough MQ: XC2_6 EXAM DATE/TIME: 09/08/2024 4:21 PM COMPARISON: Chest x-ray dated 08/16/2022 RESULT: Lines, tubes, and devices: None. Lungs and pleura: No consolidation. No lung mass. No pleural effusion. No pneumothorax. Cardiomediastinal silhouette: Normal cardiomediastinal silhouette. Bones and soft tissues: Redemonstration of a calcified right hepatic mass, a finding present dating back to at least December 2021. IMPRESSION IMPRESSION: No acute radiographic abnormality. Grader Patrol: DESIREE Transcribe Date/Time: Sep 08 2024 4:22P Dictated by : JAMIE ELLIS MD 2. Rhinosinusitis - ICD9: 473.9, ICD10: J32.9 - DOXYCYCLINE HYCLATE 100 MG TABLET Prescription instructions reviewed with patient as applicable. Potential red flag symptoms discussed with the patient. Reviewed appropriate action plan to take if red flag symptoms occur. Patient agreeable to treatment plan. Chest x-ray patient is not sure if she followed up with her MRI. Patient was going to get established with a primary care and ask about possible follow-up MRI. Sisi Barrios APRN.RESIDENTIAL APPRAISER documented in this encounter [facility] 08-23-2024 Instructions Colleen Duvall - 08/23/2024 10:39 AM EST ASSESSMENT/PLAN: 1. Viral URI with cough - ICD9: 465.9, ICD10: J06.9 - Discussed viral etiology and rationale for treatment. - Symptomatic treatment with prn analgesia - Supportive care with fluids and rest - The patient may also use Robitussin or Delsym for cough. - Follow up in 3-5 days if symptoms persist or sooner if worsening of symptoms - XR CHEST 2V FRONTAL/LAT-FUTURE ORDER Dicussed plan of care with patient. Offered patient prescription for Tessalon Pearls for cough, patient declined. Advised patient that chest x-ray order will be placed, if cough fails to improve or worsen in the next 3-5 days, have chest x-ray completed. Answered all of patient's questions. Patient is agreeable with plan and verbalizes understanding. Colleen Duvall, Student TRAINING SPECIALIST documented in this encounter [facility] 08-23-2024 Note HNO ID: [id number] Author: FELICITA FIGUEROA APRN.RESIDENTIAL APPRAISER Service: ? Author Type: Nurse Practitioner Type: Progress Notes Filed: 08/23/2024 12:12 Note Text: Glenn Mishra is a 43 year old female who presents with congestion, cough, headache and fatigue x 2 days. Cough Associated symptoms include chills, headaches and shortness of breath. Pertinent negatives include no chest pain, no ear pain and no sore throat. Patient states she has a recent sick exposure as her son was diagnosed with pneumonia two weeks ago. Today she reports a non-productive cough with nasal congestion, headache and increased fatigue. Patient is drinking fluids well, decrease in appetite for solid foods. She reports a fever, highest temperature at home 99.4 and chills. She denies runny nose, sore throat, chest pain, ear pain, nausea, vomiting and diarrhea. She confirms that she is having mild shortness of breath. She reports using OTC Nyquil and Dayquil with minimal relief. Review of Systems Constitutional: Positive for chills, fever and malaise/fatigue. HENT: Positive for congestion. Negative for ear pain and sore throat. Eyes: Negative. Respiratory: Positive for cough and shortness of breath. Cardiovascular: Negative for chest pain. Gastrointestinal: Negative for abdominal pain, diarrhea, nausea and vomiting. Genitourinary: Negative. Musculoskeletal: Negative. Skin: Negative. Neurological: Positive for headaches. Psychiatric/Behavioral: Negative. PAST MEDICAL HISTORY Diagnosis Date Adenomatous colon polyp Anemia DURING COLLEGE Female infertility of unspecified origin Female infertility Liver function study, abnormal BENIGN CALCIFICATION OF LIVER Transient hypertension of , unspecified as to episode of care PAST SURGICAL HISTORY Procedure Laterality Date COLONOSCOPY GEN ANES 07/27/2021 EGD 07/27/2021 NONE ALLERGIES Patient has no known allergies. MEDICATIONS Magnesium 200 mg tab Lactobacillus acidophilus (PROBIOTIC ACIDOPHILUS ORAL) Take by mouth. ascorbic acid, vitamin C, (VITAMIN C) 125 mg chew psyllium seed, with dextrose, (FIBER SUPPLEMENT ORAL) Take by mouth. Multivitamin capsule Take 1 capsule by mouth once daily. FERROUS SULFATE (IRON ORAL) Take by mouth. FAMILY HISTORY Problem Relation Age of Onset Breast Cancer Mother Hypertension Mother other (Gallbladder Disease) Mother Gallbladder Removed Heart Father valve replacement Breast Cancer Maternal Grandmother Aneurysm Maternal Grandfather Heart Paternal Grandmother Cancer Paternal Grandfather Pancreatic Cancer Maternal Uncle Colon Cancer No Family History Social History Tobacco Use Smoking status: Never Passive exposure: Never Smokeless tobacco: Never Vaping Use Vaping status: Never Used Substance Use Topics Alcohol use: Yes Comment: Seldom,NOT WHILE Drug use: No BP 130/93 Pulse 81 Temp 36.7 ?C (98.1 ?F) (Right Tympanic) Resp 16 Wt 76.1 kg (167 lb 12.3 oz) LMP 08/09/2024 (Exact Date) SpO2 98% BMI 26.87 kg/m? Objective Physical Exam Constitutional: Appearance: Normal appearance. HENT: Head: Normocephalic. Right Ear: Tympanic membrane normal. Left Ear: Tympanic membrane normal. Mouth/Throat: Mouth: Mucous membranes are moist. Pharynx: Oropharynx is clear. Cardiovascular: Rate and Rhythm: Normal rate and regular rhythm. Pulses: Normal pulses. Heart sounds: Normal heart sounds. Pulmonary: Effort: Pulmonary effort is normal. Breath sounds: Normal breath sounds. Comments: Non-productive cough noted. Abdominal: General: There is no distension. Palpations: Abdomen is soft. Tenderness: There is no abdominal tenderness. Musculoskeletal: General: Normal range of motion. Cervical back: Normal range of motion and neck supple. No tenderness. Lymphadenopathy: Cervical: No cervical adenopathy. Skin: General: Skin is warm and dry. Neurological: General: No focal deficit present. Mental Status: She is alert. Psychiatric: Mood and Affect: Mood normal. Behavior: Behavior normal. ASSESSMENT/PLAN: 1. Viral URI with cough - ICD9: 465.9, ICD10: J06.9 - Discussed viral etiology and rationale for treatment. - Symptomatic treatment with prn analgesia - Supportive care with fluids and rest - The patient may also use Robitussin or Delsym for cough. - Follow up in 3-5 days if symptoms persist or sooner if worsening of symptoms - XR CHEST 2V FRONTAL/LAT-FUTURE ORDER Dicussed plan of care with patient. Offered patient prescription for Tessalon Pearls for cough, patient declined. Advised patient that chest x-ray order will be placed, if cough fails to improve or worsen in the next 3-5 days, have chest x-ray completed. Answered all of patient's questions. Patient is agreeable with plan and verbalizes understanding. Colleen Duvall, Student TRAINING SPECIALIST TEACHING PROVIDER (Physician/PA/TYING MACHINE OPERATOR) NOTE OF PERSONAL INVOLVEMENT (more content not included)... [facility] 08-23-2024 History of Presen t illness Narrative Subjective Estefani Mishra is a 43 year old female who presents with congestion, cough, headache and fatigue x 2 days. Cough Associated symptoms include chills, headaches and shortness of breath. Pertinent negatives include no chest pain, no ear pain and no sore throat. Patient states she has a recent sick exposure as her son was diagnosed with pneumonia two weeks ago. Today she reports a non-productive cough with nasal congestion, headache and increased fatigue. Patient is drinking fluids well, decrease in appetite for solid foods. She reports a fever, highest temperature at home 99.4 and chills. She denies runny nose, sore throat, chest pain, ear pain, nausea, vomiting and diarrhea. She confirms that she is having mild shortness of breath. She reports using OTC Nyquil and Dayquil with minimal relief. Review of Systems Constitutional: Positive for chills, fever and malaise/fatigue. HENT: Positive for congestion. Negative for ear pain and sore throat. Eyes: Negative. Respiratory: Positive for cough and shortness of breath. Cardiovascular: Negative for chest pain. Gastrointestinal: Negative for abdominal pain, diarrhea, nausea and vomiting. Genitourinary: Negative. Musculoskeletal: Negative. Skin: Negative. Neurological: Positive for headaches. Psychiatric/Behavioral: Negative. PAST MEDICAL HISTORY Diagnosis Date Adenomatous colon polyp Anemia DURING COLLEGE Female infertility of unspecified origin Female infertility Liver function study, abnormal BENIGN CALCIFICATION OF LIVER Transient hypertension of , unspecified as to episode of care PAST SURGICAL HISTORY Procedure Laterality Date COLONOSCOPY GEN ANES 07/27/2021 EGD 07/27/2021 NONE ALLERGIES Patient has no known allergies. MEDICATIONS Magnesium 200 mg tab Lactobacillus acidophilus (PROBIOTIC ACIDOPHILUS ORAL) Take by mouth. ascorbic acid, vitamin C, (VITAMIN C) 125 mg chew psyllium seed, with dextrose, (FIBER SUPPLEMENT ORAL) Take by mouth. Multivitamin capsule Take 1 capsule by mouth once daily. FERROUS SULFATE (IRON ORAL) Take by mouth. FAMILY HISTORY Problem Relation Age of Onset Breast Cancer Mother Hypertension Mother other (Gallbladder Disease) Mother Gallbladder Removed Heart Father valve replacement Breast Cancer Maternal Grandmother Aneurysm Maternal Grandfather Heart Paternal Grandmother Cancer Paternal Grandfather Pancreatic Cancer Maternal Uncle Colon Cancer No Family History Social History Tobacco Use Smoking status: Never Passive exposure: Never Smokeless tobacco: Never Vaping Use Vaping status: Never Used Substance Use Topics Alcohol use: Yes Comment: Seldom,NOT WHILE Drug use: No BP 130/93 Pulse 81 Temp 36.7 C (98.1 F) (Right Tympanic) Resp 16 Wt 76.1 kg (167 lb 12.3 oz) LMP 08/09/2024 (Exact Date) SpO2 98% BMI 26.87 kg/m Objective Physical Exam Constitutional: Appearance: Normal appearance. HENT: Head: Normocephalic. Right Ear: Tympanic membrane normal. Left Ear: Tympanic membrane normal. Mouth/Throat: Mouth: Mucous membranes are moist. Pharynx: Oropharynx is clear. Cardiovascular: Rate and Rhythm: Normal rate and regular rhythm. Pulses: Normal pulses. Heart sounds: Normal heart sounds. Pulmonary: Effort: Pulmonary effort is normal. Breath sounds: Normal breath sounds. Comments: Non-productive cough noted. Abdominal: General: There is no distension. Palpations: Abdomen is soft. Tenderness: There is no abdominal tenderness. Musculoskeletal: General: Normal range of motion. Cervical back: Normal range of motion and neck supple. No tenderness. Lymphadenopathy: Cervical: No cervical adenopathy. Skin: General: Skin is warm and dry. Neurological: General: No focal deficit present. Mental Status: She is alert. Psychiatric: Mood and Affect: Mood normal. Behavior: Behavior normal. ASSESSMENT/PLAN: 1. Viral URI with cough - ICD9: 465.9, ICD10: J06.9 - Discussed viral etiology and rationale for treatment. - Symptomatic treatment with prn analgesia - Supportive care with fluids and rest - The patient may also use Robitussin or Delsym for cough. - Follow up in 3-5 days if symptoms persist or sooner if worsening of symptoms - XR CHEST 2V FRONTAL/LAT-FUTURE ORDER Dicussed plan of care with patient. Offered patient prescription for Tessalon Pearls for cough, patient declined. Advised patient that chest x-ray order will be placed, if cough fails to improve or worsen in the next 3-5 days, have chest x-ray completed. Answered all of patient's questions. Patient is agreeable with plan and verbalizes understanding. Colleen Duvall, Student TRAINING SPECIALIST TEACHING PROVIDER (Physician/PA/TYING MACHINE OPERATOR) NOTE OF PERSONAL INVOLVEMENT IN CARE: I have personally seen and examined the patient and performed the medical decision-making components. I have reviewed the Advanced Practice Registered Nurse (TYING MACHINE OPERATOR) Student's documentation and verified the findings in the note as written. Any additions or changes are noted in bold/italics. Signature: Felicita Figueroa Date: 08/23/2024 Time: 12:11 PM documented in this encounter [facility] 08-20-2024 History of Presen t illness Narrative Radiology Service Progress Note PATIENT NAME: Estefani Mishra DATE OF SERVICE: August 20, 2024 TIME: 7:49 AM PATIENT IDENTITY VERIFICATION COMPLETED USING TWO (2) IDENTIFIERS: Name and Date of confirmed by patient verbally. FALL SCREENING: Has the patient had 2 falls in the last year or 1 fall with injury or currently using an Ambulatory Assistive Device (Walker, Cane, Wheelchair, Crutches, etc.)? No PATIENT GENDER DATA: Female. status: : No status: NO. PATIENT RELEVANT IMPLANT DATA REVIEWED: Not Applicable PATIENT PRESENTS WITH AN IMPLANTABLE OR ATTACHED EMERGENCY ROOM PHYSICIAN: No RADIOLOGY DEPARTMENT: Mammography PERIPHERAL IV DATA: Not applicable SIGNED BY: Jann Dang August 20, 2024 7:49 AM documented in this encounter [facility] 08-20-2024 Note HNO ID: [id number] Author: FUENTES IRENE Mammo Tech Service: ? Author Type: Risk Analyst Type: Progress Notes Filed: 08/20/2024 07:49 Note Text: Radiology Service Progress Note PATIENT NAME: Estefani Mishra DATE OF SERVICE: August 20, 2024 TIME: 7:49 AM PATIENT IDENTITY VERIFICATION COMPLETED USING TWO (2) IDENTIFIERS: Name and Date of confirmed by patient verbally. FALL SCREENING: Has the patient had 2 falls in the last year or 1 fall with injury or currently using an Ambulatory Assistive Device (Walker, Cane, Wheelchair, Crutches, etc.)? No PATIENT GENDER DATA: Female. status: : No status: NO. PATIENT RELEVANT IMPLANT DATA REVIEWED: Not Applicable PATIENT PRESENTS WITH AN IMPLANTABLE OR ATTACHED EMERGENCY ROOM PHYSICIAN: No RADIOLOGY DEPARTMENT: Mammography PERIPHERAL IV DATA: Not applicable SIGNED BY: Fuentes Irene [employer] August 20, 2024 7:49 AM [facility] 06-25-2024 Note HNO ID: [id number] Author: ALLYSON VALLE APRN.RESIDENTIAL APPRAISER Service: ? Author Type: Nurse Practitioner Type: Progress Notes Filed: 06/25/2024 11:40 Note Text: Freight Elevator Erector offered: Patient declinesClarisse Jara is a 43 year old who presents for an annual gynecologic exam with complaints, irregular bleeding. Menses: cycles every 13-65 days and 2- 5 days of flow. Contraception: none HPV vaccine: No Last Pap: 05/11/2020 normal HPV: 05/10/2020 negative History of abnormal pap: No Last mammogram: 2022normal Sexually active: Yes OB History T2 L2 SAB0 IAB0 Ectopic0 Multiple0 Live Births2 Skip Pitman History LMP: 05/30/2024 (Exact Date), Having periods Age at Menarche: Age at First : Age at Menopause: Skip Pitman History Comments: Sexual Activity: Yes; Male Contraception: None PAST MEDICAL HISTORY Diagnosis Date Adenomatous colon polyp Anemia DURING COLLEGE Female infertility of unspecified origin Female infertility Liver function study, abnormal BENIGN CALCIFICATION OF LIVER Transient hypertension of , unspecified as to episode of care PAST SURGICAL HISTORY Procedure Laterality Date COLONOSCOPY GEN ANES 07/27/2021 EGD 07/27/2021 NONE FAMILY HISTORY Problem Relation Age of Onset Breast Cancer Mother Hypertension Mother other (Gallbladder Disease) Mother Gallbladder Removed Heart Father valve replacement Breast Cancer Maternal Grandmother Aneurysm Maternal Grandfather Heart Paternal Grandmother Cancer Paternal Grandfather Pancreatic Cancer Maternal Uncle Colon Cancer No Family History SOCIAL HISTORY Social History Tobacco Use Smoking status: Never Passive exposure: Never Smokeless tobacco: Never Vaping Use Vaping status: Never Used Substance Use Topics Alcohol use: Yes Comment: Seldom,NOT WHILE Drug use: No REVIEW OF SYSTEMS Abdomen: No abdominal pain, nausea, vomiting, diarrhea, or constipation. No bloating, early satiety, indigestion, or increased flatulence. Bladder: No dysuria, gross hematuria, urinary frequency, urinary urgency, +stress incontinence. Breast: No breast lumps, nipple d/c, overlying skin changes, redness or skin retraction. Allergies and current medication updated:Yes SENSITIVE EXAM: The sensitive examination was discussed with the Patient or Patient's Authorized S Iron Worker. As applicable, any other physician, advance practice provider, medical student, or other health professional student that will be observing or involved in the sensitive examination for educational or training purposes was discussed with the Patient or Authorized S Iron Worker. The Patient or Authorized S Iron Worker has agreed to proceed with the sensitive examination. (Sensitive examination includes inspection and/or palpation of the breasts, pelvis, prostate and anorectal regions). EXAM: BP 120/64 Ht 5' 6.26 (1.68m) Wt 168 lb (76.2kg) LMP 05/30/2024 BMI 26.90 kg/(m2). GENERAL: pleasant, female in no apparent distress HEENT: Normocephalic, atraumatic, mucus membranes moist, and no lesions NECK: Supple, full range of motion, no adenopathy, and thyroid normal DERMATOLOGY: Normal, without lesions, non-icteric, and non-hirsute BREAST: soft, non-tender, symmetric, no dominant mass, normal nipple-areolar complex, no lymphadenopathy, and no nipple discharge CHEST: Normal inspiratory effort ABDOMEN: soft, non-tender, and no masses PELVIC: external genitalia normal, normal Bartholin's glands, urethra, Kenova's glands, no vulvar lesions, no cervical lesions, good vaginal support, physiologic discharge present, normal appearing perineal body and perianal region BIMANUAL: uterus normal size, shape and consistency, no adnexal masses, and non-tender RECTOVAGINAL: deferred. NEURO: alert and oriented x3,exam grossly non-focal EXTREMITIES: normal ASSESSMENT/PLAN: 1) Health maintenance: Pap/HPV up to date. Mammogram ordered. Nutrition, exercise and routine health maintenance exams reviewed. Calcium/Vitamin D supplementation information provided. 2) Contraception: none. Contraceptive options reviewed and information provided. 3) STD screening: Declined STD check. 4) Follow up one year or sooner as needed Allyson Valle APRN.[facility] 06-25-2024 History of Presen t illness Narrative Freight Elevator Erector offered: Patient declines. Estefani is a 43 year old who presents for an annual gynecologic exam with complaints, irregular bleeding. Menses: cycles every 13-65 days and 2- 5 days of flow. Contraception: none HPV vaccine: No Last Pap: 05/11/2020 normal HPV: 05/10/2020 negative History of abnormal pap: No Last mammogram: 2022normal Sexually active: Yes OB History T2 L2 SAB0 IAB0 Ectopic0 Multiple0 Live Births2 Skip Pitman History LMP: 05/30/2024 (Exact Date), Having periods Age at Menarche: Age at First : Age at Menopause: Skip Pitman History Comments: Sexual Activity: Yes; Male Contraception: None PAST MEDICAL HISTORY Diagnosis Date Adenomatous colon polyp Anemia DURING COLLEGE Female infertility of unspecified origin Female infertility Liver function study, abnormal BENIGN CALCIFICATION OF LIVER Transient hypertension of , unspecified as to episode of care PAST SURGICAL HISTORY Procedure Laterality Date COLONOSCOPY GEN ANES 07/27/2021 EGD 07/27/2021 NONE FAMILY HISTORY Problem Relation Age of Onset Breast Cancer Mother Hypertension Mother other (Gallbladder Disease) Mother Gallbladder Removed Heart Father valve replacement Breast Cancer Maternal Grandmother Aneurysm Maternal Grandfather Heart Paternal Grandmother Cancer Paternal Grandfather Pancreatic Cancer Maternal Uncle Colon Cancer No Family History SOCIAL HISTORY Social History Tobacco Use Smoking status: Never Passive exposure: Never Smokeless tobacco: Never Vaping Use Vaping status: Never Used Substance Use Topics Alcohol use: Yes Comment: Seldom,NOT WHILE Drug use: No REVIEW OF SYSTEMS Abdomen: No abdominal pain, nausea, vomiting, diarrhea, or constipation. No bloating, early satiety, indigestion, or increased flatulence. Bladder: No dysuria, gross hematuria, urinary frequency, urinary urgency, +stress incontinence. Breast: No breast lumps, nipple d/c, overlying skin changes, redness or skin retraction. Allergies and current medication updated:Yes SENSITIVE EXAM: The sensitive examination was discussed with the Patient or Patient's Authorized S Iron Worker. As applicable, any other physician, advance practice provider, medical student, or other health professional student that will be observing or involved in the sensitive examination for educational or training purposes was discussed with the Patient or Authorized S Iron Worker. The Patient or Authorized S Iron Worker has agreed to proceed with the sensitive examination. (Sensitive examination includes inspection and/or palpation of the breasts, pelvis, prostate and anorectal regions). EXAM: BP 120/64 Ht 5' 6.26 (1.68m) Wt 168 lb (76.2kg) LMP 05/30/2024 BMI 26.90 kg/(m^2). GENERAL: pleasant, female in no apparent distress HEENT: Normocephalic, atraumatic, mucus membranes moist, and no lesions NECK: Supple, full range of motion, no adenopathy, and thyroid normal DERMATOLOGY: Normal, without lesions, non-icteric, and non-hirsute BREAST: soft, non-tender, symmetric, no dominant mass, normal nipple-areolar complex, no lymphadenopathy, and no nipple discharge CHEST: Normal inspiratory effort ABDOMEN: soft, non-tender, and no masses PELVIC: external genitalia normal, normal Bartholin's glands, urethra, Ken[place]'s glands, no vulvar lesions, no cervical lesions, good vaginal support, physiologic discharge present, normal appearing perineal body and perianal region BIMANUAL: uterus normal size, shape and consistency, no adnexal masses, and non-tender RECTOVAGINAL: deferred. NEURO: alert and oriented x3,exam grossly non-focal EXTREMITIES: normal ASSESSMENT/PLAN: 1) Health maintenance: Pap/HPV up to date. Mammogram ordered. Nutrition, exercise and routine health maintenance exams reviewed. Calcium/Vitamin D supplementation information provided. 2) Contraception: none. Contraceptive options reviewed and information provided. 3) STD screening: Declined STD check. 4) Follow up one year or sooner as needed Allyson Valle APRN.CLIVE documented in this encounter [facility] 08-20-2023 Miscellaneous Notes August 20, 2023 PID: [id number] Estefani Mishra [address] [place] [address] Dear Ms. Mishra, We are pleased to inform you that the results of your recent breast imaging exam on 08/19/2023 are normal. Your mammogram demonstrates that you have dense breast tissue, which could hide abnormalities. Dense breast tissue, in and of itself, is a relatively common condition. Therefore, this information is not provided to cause undue concern; rather, it is to raise your awareness and promote discussion with your health care provider regarding the presence of dense breast tissue in addition to other risk factors. Early detection of cancer is very important. We also understand recommendations regarding breast cancer screening are controversial. Please discuss with your primary care provider which strategy is best for you and whether a mammogram is right for you. Your imaging studies and report will be kept on file at [facility] as part of your permanent medical record and are available for your continuing care. Thank you for allowing us to help in meeting your health care needs. Sincerely, Dr. Rojas Interpreting Radiologist [facility] (Normal over 40) documented in this encounter [facility] 08-19-2023 History of Presen t illness Narrative Radiology Service Progress Note PATIENT NAME: Estefani Mishra DATE OF SERVICE: August 19, 2023 TIME: 3:13 PM PATIENT IDENTITY VERIFICATION COMPLETED USING TWO (2) IDENTIFIERS: Name and Date of confirmed by patient verbally. FALL SCREENING: Has the patient had 2 falls in the last year or 1 fall with injury or currently using an Ambulatory Assistive Device (Walker, Cane, Wheelchair, Crutches, etc.)? No PATIENT GENDER DATA: Female. status: : No status: NO. PATIENT RELEVANT IMPLANT DATA REVIEWED: Not Applicable RADIOLOGY DEPARTMENT: Mammography PERIPHERAL IV DATA: Not applicable SIGNED BY: Lynn Adamsono Leandro August 19, 2023 3:13 PM documented in this encounter [facility] 05-14-2023 Miscellaneous Notes Order filed. Magy Alvarado APRN.CLIVE Please file Mamm with LAYLA order in RM's absence. Thank you. documented in this encounter [facility] 08-16-2022 Wild Godfrey APRN.CNP - 08/16/2022 7:17 PM EST RESPIRATORY INFECTION GENERAL INFORMATION: An upper respiratory tract infection, or cold, is a viral infection of the airway passages. It can be caused by any one of almost 200 different viruses. Common symptoms include a runny or stuffy nose, sneezing, watery eyes, sore throat, cough, and slight fever. Colds are contagious, especially during the first 3 or 4 days and cannot be cured by antibiotics. They are spread by coughs, sneezes, and direct contact, especially [id number]. A respiratory tract infection usually clears up in a few days, but some people may be sick for a week or two. INSTRUCTIONS: 1. Be careful not to blow your nose too hard because this may cause a nosebleed. 2. Use a cool-mist humidifier (vaporizer) to increase air moisture. This will make it easier for you to breathe. Do not use hot steam. 3. Rest as much as possible and get plenty of sleep. 4. Wash your hands often, especially after you blow your nose. Cover your mouth and nose with a tissue when you sneeze or cough. 5. Drink plenty of clear fluids (8 glasses a day) such as water, fruit juice, tea, clear soups, and carbonated beverages. CONTACT YOUR DOCTOR IF : 1. Your fever lasts more than 3 days. 2. You have a sore throat that gets worse or you see white or yellow spots in your throat. 3. Your cough gets worse or lasts more than 10 days. 4. You develop a rash anywhere on your skin. 5. You have an earache or a headache. 6. You have thick greenish or yellowish discharge from your nose. RETURN IMMEDIATELY IF: 1. You cough up thick yellow, green, orr, or bloody sputum. 2. You have difficulty breathing, pain in your chest, or your skin or nails look orr or blue. 3. You have shaking chills or a temperature over 102 F (39 C). documented in this encounter [facility] 08-16-2022 History of Presen t illness Narrative This note was created using E-Blink. Subjective Estefani Mishra is a 41 year old female. 41 year old female with no significant PMH presents for complaints of illness. Acute onset Saturday Started with cold like symptoms +start of cough, which was mild Start of congestion +headache +fever +malaise +fatigue Endorses that the cough and feelings of winded are increasing. States today she attempted to take her dog for a walk and was easily winded. States she actively works out Had x 2 COVID tests at home that were negative Denies ill contact. The history is provided by the patient. No russian language instructor was used. Cough This is a new problem. The current episode started more than 2 days ago. The problem occurs constantly. The problem has been gradually worsening. The cough is Non-productive. The maximum temperature recorded prior to her arrival was 100 to 100.9 F. Associated symptoms include chills, headaches, rhinorrhea, sore throat, myalgias and shortness of breath. Pertinent negatives include no chest pain, no sweats, no weight loss, no ear congestion, no ear pain, no wheezing and no eye redness. She has tried nothing for the symptoms. The treatment provided no relief. She is not a smoker. Her past medical history does not include bronchitis, pneumonia, bronchiectasis, COPD, emphysema or asthma. PAST MEDICAL HISTORY Diagnosis Date Adenomatous colon polyp Anemia DURING COLLEGE Female infertility of unspecified origin Female infertility Liver function study, abnormal BENIGN CALCIFICATION OF LIVER Transient hypertension of , unspecified as to episode of care PAST SURGICAL HISTORY Procedure Laterality Date COLONOSCOPY GEN ANES 07/27/2021 EGD 07/27/2021 NONE ALLERGIES Patient has no known allergies. MEDICATIONS ELDERBERRY FRUIT ORAL ascorbic acid, vitamin C, (VITAMIN C) 125 mg chew psyllium seed, with dextrose, (FIBER SUPPLEMENT ORAL) Take by mouth. Multivitamin capsule Take 1 capsule by mouth once daily. FERROUS SULFATE (IRON ORAL) Take by mouth. FAMILY HISTORY Problem Relation Age of Onset Breast Cancer Mother Hypertension Mother other (Gallbladder Disease) Mother Gallbladder Removed Heart Father valve replacement Breast Cancer Maternal Grandmother Aneurysm Maternal Grandfather Heart Paternal Grandmother Cancer Paternal Grandfather Pancreatic Cancer Maternal Uncle Colon Cancer No Family History Social History Tobacco Use Smoking status: Never Smokeless tobacco: Never Vaping Use Vaping Use: Never used Substance Use Topics Alcohol use: Yes Comment: Seldom,NOT WHILE Drug use: No Review of Systems Constitutional: Positive for chills, fatigue and fever. Negative for weight loss. HENT: Positive for congestion, rhinorrhea and sore throat. Negative for ear pain. Eyes: Negative for pain, discharge, redness and itching. Respiratory: Positive for cough and shortness of breath. Negative for apnea and wheezing. Cardiovascular: Negative for chest pain, palpitations and leg swelling. Gastrointestinal: Negative for abdominal pain. Musculoskeletal: Positive for myalgias. Negative for arthralgias and back pain. Skin: Negative for color change, pallor, rash and wound. Allergic/Immunologic: Negative for environmental allergies, food allergies and immunocompromised state. Neurological: Positive for headaches. Negative for dizziness and facial asymmetry. Hematological: Negative for adenopathy. Does not bruise/bleed easily. Psychiatric/Behavioral: Negative for agitation and behavioral problems. Objective BP 124/78 Pulse 85 Temp 36.8 C (98.2 F) Resp 18 Wt 75.6 kg (166 lb 9.6 oz) LMP 07/28/2022 SpO2 98% BMI 26.89 kg/m Physical Exam Vitals and nursing note reviewed. Constitutional: General: She is not in acute distress. Appearance: Normal appearance. She is normal weight. She is not ill-appearing, toxic-appearing or diaphoretic. HENT: Head: Normocephalic and atraumatic. Right Ear: Ear canal and external ear normal. Left Ear: Ear canal and external ear normal. Nose: Nose normal. No congestion or rhinorrhea. Mouth/Throat: Mouth: Mucous membranes are moist. Pharynx: No oropharyngeal exudate or posterior oropharyngeal erythema. Eyes: General: Right eye: No discharge. Left eye: No discharge. Extraocular Movements: Extraocular movements intact. Conjunctiva/sclera: Conjunctivae normal. Pupils: Pupils are equal, round, and reactive to light. Cardiovascular: Rate and Rhythm: Normal rate and regular rhythm. Pulses: Normal pulses. Heart sounds: Normal heart sounds. No murmur heard. No friction rub. Pulmonary: Effort: Pulmonary effort is normal. No respiratory distress. Breath sounds: Normal breath sounds. No stridor. No wheezing, rhonchi or rales. Chest: Chest wall: No tenderness. Abdominal: General: Abdomen is flat. There is no distension. Palpations: Abdomen is soft. There is no mass. Tenderness: There is no abdominal tenderness. There is no right CVA tenderness, left CVA tenderness, guarding or rebound. Hernia: No hernia is present. Musculoskeletal: General: No swelling, tenderness, deformity or signs of injury. Normal range of motion. Cervical back: Normal range of motion and neck supple. No rigidity. Right lower leg: No edema. Left lower leg: No edema. Lymphadenopathy: Cervical: No cervical adenopathy. Skin: General: Skin is warm and dry. Capillary Refill: Capillary refill takes less than 2 seconds. Coloration: Skin is not jaundiced or pale. Findings: No bruising, erythema, lesion or rash. Neurological: General: No focal deficit present. Mental Status: She is alert and oriented to person, place, and time. Cranial Nerves: No cranial nerve deficit. Sensory: No sensory deficit. Motor: No weakness. Coordination: Coordination normal. Gait: Gait normal. Psychiatric: Mood and Affect: Mood normal. Behavior: Behavior normal. Thought Content: Thought content normal. Judgment: Judgment normal. Assessment and Plan ASSESSMENT/PLAN: 1. Acute cough - ICD9: 786.2, ICD10: R05.1 (primary diagnosis) X 4 days Worsening - XR CHEST 2V FRONTAL/LAT-negative - COVID WITH FLUA+B, ROUTINE 2. URI, acute - ICD9: 465.9, ICD10: J06.9 - Discussed viral etiology and rationale for treatment. - Symptomatic treatment with prn analgesia - Supportive care with fluids and rest Davida Godfrey APRN.RESIDENTIAL APPRAISER documented in this encounter [facility] 08-07-2022 History of Presen t illness Narrative Radiology Service Progress Note DATE OF SERVICE: August 07, 2022 TIME: 10:25 AM PATIENT IDENTITY VERIFICATION COMPLETED USING TWO (2) STANDARD IDENTIFIERS: Name and Date of confirmed by patient verbally. FALL SCREENING: Has the patient had 2 falls in the last year or 1 fall with injury or currently using an Ambulatory Assistive Device (Walker, Cane, Wheelchair, Crutches, etc.)? No PATIENT GENDER DATA: Female. status: : No status: NO. PATIENT RELEVANT IMPLANT DATA REVIEWED: Yes ALLERGIES: Reviewed and unchanged CONTRAST ALLERGY: NO. EXAM: MRI - CONTRAST TYPE: GROUP II PERIPHERAL IV DATA: Ambulatory: A peripheral IV was started in the Right antecubital site with a Angio cath: 22 gauge. RADIOLOGY DEPARTMENT: MR; Exam(s) Completed: Body: Pancreas/Biliary SIGNATURE: RT Travis(R) PATIENT NAME: Estefani Mishra DATE: August 07, 2022 TIME: 10:25 AM documented in this encounter [facility] 07-13-2022 Miscellaneous Notes July 13, 2022 PID: [id number] Estefani Mishra [address] [place] [address] Dear Danica, We are pleased to inform you that the results of your recent breast imaging exam on 07/13/2022 are normal. Your mammogram demonstrates that you have dense breast tissue, which could hide abnormalities. Dense breast tissue, in and of itself, is a relatively common condition. Therefore, this information is not provided to cause undue concern; rather, it is to raise your awareness and promote discussion with your health care provider regarding the presence of dense breast tissue in addition to other risk factors. Early detection of cancer is very important. We also understand recommendations regarding breast cancer screening are controversial. Please discuss with your primary care provider which strategy is best for you and whether a mammogram is right for you. Your imaging studies and report will be kept on file at [facility] as part of your permanent medical record and are available for your continuing care. Thank you for allowing us to help in meeting your health care needs. Sincerely, Dr. Yee Interpreting Radiologist [facility] (Normal over 40) documented in this encounter [facility] 06-15-2022 History of Presen t illness Narrative Estefani is a 41 year old who presents for an annual gynecologic exam without complaints. Menses: cycles every 25-30 days and 4-5 days of flow. Contraception: none HPV vaccine: No Last Pap: 05/11/2020 normal HPV: 05/10/2020 negative History of abnormal pap: No Last mammogram: 2020 normal Sexually active: Yes Pain with intercourse: No Postcoital bleeding: No OB History T2 L2 SAB0 IAB0 Ectopic0 Multiple0 Live Births2 Skip Pitman History LMP: 05/28/2022, Having periods Age at Menarche: Age at First : Age at Menopause: Skip Pitman History Comments: Sexual Activity: Yes; Male Contraception: None PAST MEDICAL HISTORY Diagnosis Date Adenomatous colon polyp Anemia DURING COLLEGE Female infertility of unspecified origin Female infertility Liver function study, abnormal BENIGN CALCIFICATION OF LIVER Transient hypertension of , unspecified as to episode of care PAST SURGICAL HISTORY Procedure Laterality Date COLONOSCOPY GEN ANES 07/27/2021 EGD 07/27/2021 NONE FAMILY HISTORY Problem Relation Age of Onset Breast Cancer Mother Hypertension Mother other (Gallbladder Disease) Mother Gallbladder Removed Heart Father valve replacement Breast Cancer Maternal Grandmother Aneurysm Maternal Grandfather Heart Paternal Grandmother Cancer Paternal Grandfather Pancreatic Cancer Maternal Uncle Colon Cancer No Family History SOCIAL HISTORY Social History Tobacco Use Smoking status: Never Smokeless tobacco: Never Vaping Use Vaping Use: Never used Substance Use Topics Alcohol use: Yes Comment: Seldom,NOT WHILE Drug use: No REVIEW OF SYSTEMS Abdomen: No abdominal pain, nausea, vomiting, diarrhea, or constipation. No bloating, early satiety, indigestion, or increased flatulence. Bladder: No dysuria, gross hematuria, urinary frequency, urinary urgency, or incontinence. Breast: No breast lumps, nipple d/c, overlying skin changes, redness or skin retraction. Allergies and current medication updated:Yes EXAM: BP 114/68 Ht 5' 6 (1.68m) Wt 164 lb 6.4 oz (74.6kg) LMP 05/28/2022 BMI 26.55 kg/(m^2). GENERAL: pleasant, female in no apparent distress HEENT: Normocephalic, atraumatic, mucus membranes moist, and no lesions NECK: Supple, full range of motion, no adenopathy, and thyroid normal DERMATOLOGY: Normal, without lesions, non-icteric, and non-hirsute BREAST: soft, non-tender, symmetric, no dominant mass, normal nipple-areolar complex, no lymphadenopathy, and no nipple discharge CHEST: Normal inspiratory effort ABDOMEN: soft, non-tender, and no masses PELVIC: external genitalia normal, normal Bartholin's glands, urethra, [place]'s glands, no vulvar lesions, no cervical lesions, good vaginal support, physiologic discharge present, normal appearing perineal body and perianal region BIMANUAL: uterus normal size, shape and consistency, no adnexal masses, and non-tender RECTOVAGINAL: deferred. NEURO: alert and oriented x3,exam grossly non-focal EXTREMITIES: normal ASSESSMENT/PLAN: 1) Health maintenance: Pap/HPV up to date. Mammogram ordered. Nutrition, exercise and routine health maintenance exams reviewed. 2) Contraception: none. Contraceptive options reviewed and information provided. 3) STD screening: Declined STD check. 4) Follow up one year or sooner as needed Allyson Valle APRN.CLIVE documented in this encounter [facility] 01-16-2022 Miscellaneous Notes Called to give patient the Interventional Radiologist # and let her know that we will schedule her repeat MRCP closer to the 6 month polo, because our schedule is not open that far. Patient did not answer so left message on her voicemail. Darlene Jeffries Discussed findings from MRI. Will plan to obtain follow up MRCP in 6 mos. Advised liver bx due to nonspecific lesion which she was agreeable to please call her to schedule. Gisella Godwin PA-C documented in this encounter [facility] 01-16-2022 Miscellaneous Notes Called pt regarding results today. Gisella Godwin PA-C documented in this encounter [facility] 01-11-2022 History of Presen t illness Narrative Radiology Service Progress Note DATE OF SERVICE: January 11, 2022 TIME: 1:03 PM PATIENT IDENTITY VERIFICATION COMPLETED USING TWO (2) STANDARD IDENTIFIERS: Name and Date of confirmed by patient verbally. FALL SCREENING: Has the patient had 2 falls in the last year or 1 fall with injury or currently using an Ambulatory Assistive Device (Walker, Cane, Wheelchair, Crutches, etc.)? No PATIENT GENDER DATA: Female. status: : No status: NO. PATIENT RELEVANT IMPLANT DATA REVIEWED: Yes ALLERGIES: Reviewed and unchanged CONTRAST ALLERGY: NO. EXAM: MRI - CONTRAST TYPE: GROUP II PERIPHERAL IV DATA: Ambulatory: A peripheral IV was started in the Right antecubital site with a Angio cath: 22 gauge. RADIOLOGY DEPARTMENT: MR; Exam(s) Completed: Body: Liver (routine) SIGNATURE: RT Travis(R) PATIENT NAME: Estefani Mishra DATE: January 11, 2022 TIME: 1:03 PM documented in this encounter [facility] 08-19-2012 History of Past i llness Narrative Problem Noted Date Resolved Date Supervision of other normal 08/19/2012 08/29/2015 Clomid 07/29/2012 08/29/2015 Overview: 07/29/2012She attempted for 13 months with her first child and 18 months with this . This is a Clomid . Prior complicated by PIH, antepartum 1 05/06/2020 Overview: 07/29/2012Patient had PIH with her first . She took labetalol at the time. History of antepartum hemorrhage 07/29/2012 05/06/2020 Overview: 07/29/2012She has a history of intrapartum hemorrhage with her previous . Family history of defects 07/29/2012 05/06/2020 Overview: 07/29/2012. Pt's first cousin's child born with hydrocephalus and had a shunt placed. No mental retardation. Patient requested diagnostic testing 07/29/2012 08/29/2015 Overview: 07/29/2012Patient desires early screening in with sequential testing. 2012negative Sequential screen first trimester. The first part of the Sequential Screen reports that her risk for Down syndrome decreased from her age-related risk of 1:250 to 1:1,000 and her Trisomy 18 risk decreased from her age-related risk of 1:910 to 1:7,800. Based on these results Dr. Crowley's recommendation is for patient to follow-up with Sequential second trimester screening (10/15-10/29) and level II anatomy scan after 18wks. 10/27/2012negative Sequential screen second trimester. The second part of the Sequential Screen reports that her risk for Down syndrome decreased from her age-related risk of 1:350 to 1:10,000, her Trisomy 18 risk decreased from her age-related risk of 1:1,300 to 1:10,000 and the ONTD risk is 1:6,000. Based on these results Dr. Crowley's recommendation is for patient to follow-up with a level II anatomy ultrasound. Immunization due 07/29/2012 02/17/2013 Overview: Tetanus vaccine is not up-to-date Transient hypertension of , antepartum 01/31/2009 08/14/2010 Supervision of normal first 06/30/2008 08/14/2010 Female infertility of unspecified origin 05/06/2020 Overview: Female infertility documented as of this encounter (statuses as of 01/12/2022) [facility] History of Past illness Narrative* Problem Noted Date Resolved Date Supervision of other normal 08/19/2012 08/29/2015 Clomid 07/29/2012 08/29/2015 Overview: 07/29/2012She attempted for 13 months with her first child and 18 months with this . This is a Clomid . Prior complicated by PIH, antepartum 1 05/06/2020 Overview: 07/29/2012Patient had PIH with her first . She took labetalol at the time. History of antepartum hemorrhage 07/29/2012 05/06/2020 Overview: 07/29/2012Lisa has a history of intrapartum hemorrhage with her previous . Family history of defects 07/29/2012 05/06/2020 Overview: 07/29/2012. Pt's first cousin's child born with hydrocephalus and had a shunt placed. No mental retardation. Patient requested diagnostic testing 07/29/2012 08/29/2015 Overview: 07/29/2012Patient desires early screening in with sequential testing. 2012negative Sequential screen first trimester. The first part of the Sequential Screen reports that her risk for Down syndrome decreased from her age-related risk of 1:250 to 1:1,000 and her Trisomy 18 risk decreased from her age-related risk of 1:910 to 1:7,800. Based on these results Dr. Crowley's recommendation is for patient to follow-up with Sequential second trimester screening (10/15-10/29) and level II anatomy scan after 18wks. 10/27/2012negative Sequential screen second trimester. The second part of the Sequential Screen reports that her risk for Down syndrome decreased from her age-related risk of 1:350 to 1:10,000, her Trisomy 18 risk decreased from her age-related risk of 1:1,300 to 1:10,000 and the ONTD risk is 1:6,000. Based on these results Dr. Crowley's recommendation is for patient to follow-up with a level II anatomy ultrasound. Immunization due 07/29/2012 02/17/2013 Overview: Tetanus vaccine is not up-to-date Transient hypertension of , antepartum 01/31/2009 08/14/2010 Supervision of normal first 06/30/2008 08/14/2010 Female infertility of unspecified origin 05/06/2020 Overview: Female infertility documented as of this encounter (statuses as of 01/16/2022) [facility] History of Past illness Narrative* Problem Noted Date Resolved Date Supervision of other normal 08/19/2012 08/29/2015 Clomid 07/29/2012 08/29/2015 Overview: 07/29/2012She attempted for 13 months with her first child and 18 months with this . This is a Clomid . Prior complicated by PIH, antepartum 1 05/06/2020 Overview: 07/29/2012Patient had PIH with her first . She took labetalol at the time. History of antepartum hemorrhage 07/29/2012 05/06/2020 Overview: 07/29/2012She has a history of intrapartum hemorrhage with her previous . Family history of defects 07/29/2012 05/06/2020 Overview: 07/29/2012. Pt's first cousin's child born with hydrocephalus and had a shunt placed. No mental retardation. Patient requested diagnostic testing 07/29/2012 08/29/2015 Overview: 07/29/2012Patient desires early screening in with sequential testing. 2012negative Sequential screen first trimester. The first part of the Sequential Screen reports that her risk for Down syndrome decreased from her age-related risk of 1:250 to 1:1,000 and her Trisomy 18 risk decreased from her age-related risk of 1:910 to 1:7,800. Based on these results Dr. Crowley's recommendation is for patient to follow-up with Sequential second trimester screening (10/15-10/29) and level II anatomy scan after 18wks. 10/27/2012negative Sequential screen second trimester. The second part of the Sequential Screen reports that her risk for Down syndrome decreased from her age-related risk of 1:350 to 1:10,000, her Trisomy 18 risk decreased from her age-related risk of 1:1,300 to 1:10,000 and the ONTD risk is 1:6,000. Based on these results Dr. Crowley's recommendation is for patient to follow-up with a level II anatomy ultrasound. Immunization due 07/29/2012 02/17/2013 Overview: Tetanus vaccine is not up-to-date Transient hypertension of , antepartum 01/31/2009 08/14/2010 Supervision of normal first 06/30/2008 08/14/2010 Female infertility of unspecified origin 05/06/2020 Overview: Female infertility documented as of this encounter (statuses as of 01/16/2022) [facility] History of Past illness Narrative* Problem Noted Date Resolved Date Supervision of other normal 08/19/2012 08/29/2015 Clomid 07/29/2012 08/29/2015 Overview: 07/29/2012She attempted for 13 months with her first child and 18 months with this . This is a Clomid . Prior complicated by PIH, antepartum 1 05/06/2020 Overview: 07/29/2012Patient had PIH with her first . She took labetalol at the time. History of antepartum hemorrhage 07/29/2012 05/06/2020 Overview: 07/29/2012She has a history of intrapartum hemorrhage with her previous . Family history of defects 07/29/2012 05/06/2020 Overview: 07/29/2012. Pt's first cousin's child born with hydrocephalus and had a shunt placed. No mental retardation. Patient requested diagnostic testing 07/29/2012 08/29/2015 Overview: 07/29/2012Patient desires early screening in with sequential testing. 2012negative Sequential screen first trimester. The first part of the Sequential Screen reports that her risk for Down syndrome decreased from her age-related risk of 1:250 to 1:1,000 and her Trisomy 18 risk decreased from her age-related risk of 1:910 to 1:7,800. Based on these results Dr. Crowley's recommendation is for patient to follow-up with Sequential second trimester screening (10/15-10/29) and level II anatomy scan after 18wks. 10/27/2012negative Sequential screen second trimester. The second part of the Sequential Screen reports that her risk for Down syndrome decreased from her age-related risk of 1:350 to 1:10,000, her Trisomy 18 risk decreased from her age-related risk of 1:1,300 to 1:10,000 and the ONTD risk is 1:6,000. Based on these results Dr. Crowley's recommendation is for patient to follow-up with a level II anatomy ultrasound. Immunization due 07/29/2012 02/17/2013 Overview: Tetanus vaccine is not up-to-date Transient hypertension of , antepartum 01/31/2009 08/14/2010 Supervision of normal first 06/30/2008 08/14/2010 Female infertility of unspecified origin 05/06/2020 Overview: Female infertility documented as of this encounter (statuses as of 06/15/2022) [facility] History of Past illness Narrative* Problem Noted Date Resolved Date Supervision of other normal 08/19/2012 08/29/2015 Clomid 07/29/2012 08/29/2015 Overview: 07/29/2012She attempted for 13 months with her first child and 18 months with this . This is a Clomid . Prior complicated by PIH, antepartum 1 05/06/2020 Overview: 07/29/2012Patient had PIH with her first . She took labetalol at the time. History of antepartum hemorrhage 07/29/2012 05/06/2020 Overview: 07/29/2012She has a history of intrapartum hemorrhage with her previous . Family history of defects 07/29/2012 05/06/2020 Overview: 07/29/2012. Pt's first cousin's child born with hydrocephalus and had a shunt placed. No mental retardation. Patient requested diagnostic testing 07/29/2012 08/29/2015 Overview: 07/29/2012Patient desires early screening in with sequential testing. 2012negative Sequential screen first trimester. The first part of the Sequential Screen reports that her risk for Down syndrome decreased from her age-related risk of 1:250 to 1:1,000 and her Trisomy 18 risk decreased from her age-related risk of 1:910 to 1:7,800. Based on these results Dr. Crowley's recommendation is for patient to follow-up with Sequential second trimester screening (10/15-10/29) and level II anatomy scan after 18wks. 10/27/2012negative Sequential screen second trimester. The second part of the Sequential Screen reports that her risk for Down syndrome decreased from her age-related risk of 1:350 to 1:10,000, her Trisomy 18 risk decreased from her age-related risk of 1:1,300 to 1:10,000 and the ONTD risk is 1:6,000. Based on these results Dr. Crowley's recommendation is for patient to follow-up with a level II anatomy ultrasound. Immunization due 07/29/2012 02/17/2013 Overview: Tetanus vaccine is not up-to-date Transient hypertension of , antepartum 01/31/2009 08/14/2010 Supervision of normal first 06/30/2008 08/14/2010 Female infertility of unspecified origin 05/06/2020 Overview: Female infertility documented as of this encounter (statuses as of 07/14/2022) [facility] History of Past illness Narrative* Problem Noted Date Resolved Date Supervision of other normal 08/19/2012 08/29/2015 Clomid 07/29/2012 08/29/2015 Overview: 07/29/2012She attempted for 13 months with her first child and 18 months with this . This is a Clomid . Prior complicated by PIH, antepartum 1 05/06/2020 Overview: 07/29/2012Patient had PIH with her first . She took labetalol at the time. History of antepartum hemorrhage 07/29/2012 05/06/2020 Overview: 07/29/2012She has a history of intrapartum hemorrhage with her previous . Family history of defects 07/29/2012 05/06/2020 Overview: 07/29/2012. Pt's first cousin's child born with hydrocephalus and had a shunt placed. No mental retardation. Patient requested diagnostic testing 07/29/2012 08/29/2015 Overview: 07/29/2012Patient desires early screening in with sequential testing. 2012negative Sequential screen first trimester. The first part of the Sequential Screen reports that her risk for Down syndrome decreased from her age-related risk of 1:250 to 1:1,000 and her Trisomy 18 risk decreased from her age-related risk of 1:910 to 1:7,800. Based on these results Dr. Crowley's recommendation is for patient to follow-up with Sequential second trimester screening (10/15-10/29) and level II anatomy scan after 18wks. 10/27/2012negative Sequential screen second trimester. The second part of the Sequential Screen reports that her risk for Down syndrome decreased from her age-related risk of 1:350 to 1:10,000, her Trisomy 18 risk decreased from her age-related risk of 1:1,300 to 1:10,000 and the ONTD risk is 1:6,000. Based on these results Dr. Crowley's recommendation is for patient to follow-up with a level II anatomy ultrasound. Immunization due 07/29/2012 02/17/2013 Overview: Tetanus vaccine is not up-to-date Transient hypertension of , antepartum 01/31/2009 08/14/2010 Supervision of normal first 06/30/2008 08/14/2010 Female infertility of unspecified origin 05/06/2020 Overview: Female infertility documented as of this encounter (statuses as of 07/17/2022) [facility]11-13-2012 History of Past illness Narrative* Problem Noted Date Resolved Date Supervision of other normal 08/19/2012 08/29/2015 Clomid 07/29/2012 08/29/2015 Overview: 07/29/2012Shemy attempted for 13 months with her first child and 18 months with this . This is a Clomid . Prior complicated by PIH, antepartum 1 05/06/2020 Overview: 07/29/2012Patient had PIH with her first . She took labetalol at the time. History of antepartum hemorrhage 07/29/2012 05/06/2020 Overview: 07/29/2012She has a history of intrapartum hemorrhage with her previous . Family history of defects 07/29/2012 05/06/2020 Overview: 07/29/2012. Pt's first cousin's child born with hydrocephalus and had a shunt placed. No mental retardation. Patient requested diagnostic testing 07/29/2012 08/29/2015 Overview: 07/29/2012Patient desires early screening in with sequential testing. 2012negative Sequential screen first trimester. The first part of the Sequential Screen reports that her risk for Down syndrome decreased from her age-related risk of 1:250 to 1:1,000 and her Trisomy 18 risk decreased from her age-related risk of 1:910 to 1:7,800. Based on these results Dr. Crowley's recommendation is for patient to follow-up with Sequential second trimester screening (10/15-10/29) and level II anatomy scan after 18wks. 10/27/2012negative Sequential screen second trimester. The second part of the Sequential Screen reports that her risk for Down syndrome decreased from her age-related risk of 1:350 to 1:10,000, her Trisomy 18 risk decreased from her age-related risk of 1:1,300 to 1:10,000 and the ONTD risk is 1:6,000. Based on these results Dr. Crowley's recommendation is for patient to follow-up with a level II anatomy ultrasound. Immunization due 07/29/2012 02/17/2013 Overview: Tetanus vaccine is not up-to-date Transient hypertension of , antepartum 01/31/2009 08/14/2010 Supervision of normal first 06/30/2008 08/14/2010 Female infertility of unspecified origin 05/06/2020 Overview: Female infertility documented as of this encounter (statuses as of 08/17/2022) [facility]11-13-2012 History of Past illness Narrative* Problem Noted Date Diagnosed Date Resolved Date Supervision of other normal 08/19/2012 08/29/2015 Clomid 07/29/2012 08/29/2015 Overview: 07/29/2012She attempted for 13 months with her first child and 18 months with this . This is a Clomid . Prior complicated by PIH, antepartum 07/29/2012 05/06/2020 Overview: 07/29/2012Patient had PIH with her first . She took labetalol at the time. History of antepartum hemorrhage 07/29/2012 05/06/2020 Overview: 07/29/2012She has a history of intrapartum hemorrhage with her previous . Family history of defects 07/29/2012 05/06/2020 Overview: 07/29/2012. Pt's first cousin's child born with hydrocephalus and had a shunt placed. No mental retardation. Patient requested diagnostic testing 07/29/2012 08/29/2015 Overview: 07/29/2012Patient desires early screening in with sequential testing. 2012negative Sequential screen first trimester. The first part of the Sequential Screen reports that her risk for Down syndrome decreased from her age-related risk of 1:250 to 1:1,000 and her Trisomy 18 risk decreased from her age-related risk of 1:910 to 1:7,800. Based on these results Dr. Crowley's recommendation is for patient to follow-up with Sequential second trimester screening (10/15-10/29) and level II anatomy scan after 18wks. 10/27/2012negative Sequential screen second trimester. The second part of the Sequential Screen reports that her risk for Down syndrome decreased from her age-related risk of 1:350 to 1:10,000, her Trisomy 18 risk decreased from her age-related risk of 1:1,300 to 1:10,000 and the ONTD risk is 1:6,000. Based on these results Dr. Crowley's recommendation is for patient to follow-up with a level II anatomy ultrasound. Immunization due 07/29/2012 02/17/2013 Overview: Tetanus vaccine is not up-to-date Transient hypertension of pr egnancy, antepartum 01/31/2009 08/14/2010 Supervision of normal first 06/30/2008 08/14/2010 Female infertility of unspecified origin 05/06/2020 Overview: Female infertility documented as of this encounter (statuses as of 05/14/2023) [facility]11-13-2012 History of Past illness Narrative* Problem Noted Date Diagnosed Date Resolved Date Supervision of other normal 08/19/2012 08/29/2015 Clomid 07/29/2012 08/29/2015 Overview: 07/29/2012She attempted for 13 months with her first child and 18 months with this . This is a Clomid . Prior complicated by PIH, antepartum 07/29/2012 05/06/2020 Overview: 07/29/2012Patient had PIH with her first . She took labetalol at the time. History of antepartum hemorrhage 07/29/2012 05/06/2020 Overview: 07/29/2012She has a history of intrapartum hemorrhage with her previous . Family history of defects 07/29/2012 05/06/2020 Overview: 07/29/2012. Pt's first cousin's child born with hydrocephalus and had a shunt placed. No mental retardation. Patient requested diagnostic testing 07/29/2012 08/29/2015 Overview: 07/29/2012Patient desires early screening in with sequential testing. 2012negative Sequential screen first trimester. The first part of the Sequential Screen reports that her risk for Down syndrome decreased from her age-related risk of 1:250 to 1:1,000 and her Trisomy 18 risk decreased from her age-related risk of 1:910 to 1:7,800. Based on these results Dr. Crowley's recommendation is for patient to follow-up with Sequential second trimester screening (10/15-10/29) and level II anatomy scan after 18wks. 10/27/2012negative Sequential screen second trimester. The second part of the Sequential Screen reports that her risk for Down syndrome decreased from her age-related risk of 1:350 to 1:10,000, her Trisomy 18 risk decreased from her age-related risk of 1:1,300 to 1:10,000 and the ONTD risk is 1:6,000. Based on these results Dr. Crowley's recommendation is for patient to follow-up with a level II anatomy ultrasound. Immunization due 07/29/2012 02/17/2013 Overview: Tetanus vaccine is not up-to-date Transient hypertension of pr egnancy, antepartum 01/31/2009 08/14/2010 Supervision of normal first 06/30/2008 08/14/2010 Female infertility of unspecified origin 05/06/2020 Overview: Female infertility documented as of this encounter (statuses as of 08/11/2023) [facility]11-13-2012 History of Past illness Narrative* Problem Noted Date Diagnosed Date Resolved Date Supervision of other normal 08/19/2012 08/29/2015 Clomid 07/29/2012 08/29/2015 Overview: 07/29/2012She attempted for 13 months with her first child and 18 months with this . This is a Clomid . Prior complicated by PIH, antepartum 07/29/2012 05/06/2020 Overview: 07/29/2012Patient had PIH with her first . She took labetalol at the time. History of antepartum hemorrhage 07/29/2012 05/06/2020 Overview: 07/29/2012Lisa has a history of intrapartum hemorrhage with her previous . Family history of defects 07/29/2012 05/06/2020 Overview: 07/29/2012. Pt's first cousin's child born with hydrocephalus and had a shunt placed. No mental retardation. Patient requested diagnostic testing 07/29/2012 08/29/2015 Overview: 07/29/2012Patient desires early screening in with sequential testing. 2012negative Sequential screen first trimester. The first part of the Sequential Screen reports that her risk for Down syndrome decreased from her age-related risk of 1:250 to 1:1,000 and her Trisomy 18 risk decreased from her age-related risk of 1:910 to 1:7,800. Based on these results Dr. Crowley's recommendation is for patient to follow-up with Sequential second trimester screening (10/15-10/29) and level II anatomy scan after 18wks. 10/27/2012negative Sequential screen second trimester. The second part of the Sequential Screen reports that her risk for Down syndrome decreased from her age-related risk of 1:350 to 1:10,000, her Trisomy 18 risk decreased from her age-related risk of 1:1,300 to 1:10,000 and the ONTD risk is 1:6,000. Based on these results Dr. Crowley's recommendation is for patient to follow-up with a level II anatomy ultrasound. Immunization due 07/29/2012 02/17/2013 Overview: Tetanus vaccine is not up-to-date Transient hypertension of pr egnancy, antepartum 01/31/2009 08/14/2010 Supervision of normal first 06/30/2008 08/14/2010 Female infertility of unspecified origin 05/06/2020 Overview: Female infertility documented as of this encounter (statuses as of 08/11/2023) [facility]11-13-2012 History of Past illness Narrative* Problem Noted Date Diagnosed Date Resolved Date Supervision of other normal 08/19/2012 08/29/2015 Clomid 07/29/2012 08/29/2015 Overview: 07/29/2012She attempted for 13 months with her first child and 18 months with this . This is a Clomid . Prior complicated by PIH, antepartum 07/29/2012 05/06/2020 Overview: 07/29/2012Patient had PIH with her first . She took labetalol at the time. History of antepartum hemorrhage 07/29/2012 05/06/2020 Overview: 07/29/2012She has a history of intrapartum hemorrhage with her previous . Family history of defects 07/29/2012 05/06/2020 Overview: 07/29/2012. Pt's first cousin's child born with hydrocephalus and had a shunt placed. No mental retardation. Patient requested diagnostic testing 07/29/2012 08/29/2015 Overview: 07/29/2012Patient desires early screening in with sequential testing. 2012negative Sequential screen first trimester. The first part of the Sequential Screen reports that her risk for Down syndrome decreased from her age-related risk of 1:250 to 1:1,000 and her Trisomy 18 risk decreased from her age-related risk of 1:910 to 1:7,800. Based on these results Dr. Crowley's recommendation is for patient to follow-up with Sequential second trimester screening (10/15-10/29) and level II anatomy scan after 18wks. 10/27/2012negative Sequential screen second trimester. The second part of the Sequential Screen reports that her risk for Down syndrome decreased from her age-related risk of 1:350 to 1:10,000, her Trisomy 18 risk decreased from her age-related risk of 1:1,300 to 1:10,000 and the ONTD risk is 1:6,000. Based on these results Dr. Crowley's recommendation is for patient to follow-up with a level II anatomy ultrasound. Immunization due 07/29/2012 02/17/2013 Overview: Tetanus vaccine is not up-to-date Transient hypertension of pr egnancy, antepartum 01/31/2009 08/14/2010 Supervision of normal first 06/30/2008 08/14/2010 Female infertility of unspecified origin 05/06/2020 Overview: Female infertility documented as of this encounter (statuses as of 08/20/2023) [facility]11-13-2012 History of Past illness Narrative* Problem Noted Date Diagnosed Date Resolved Date Supervision of other normal 08/19/2012 08/29/2015 Clomid 07/29/2012 08/29/2015 Overview: 07/29/2012She attempted for 13 months with her first child and 18 months with this . This is a Clomid . Prior complicated by PIH, antepartum 07/29/2012 05/06/2020 Overview: 07/29/2012Patient had PIH with her first . She took labetalol at the time. History of antepartum hemorrhage 07/29/2012 05/06/2020 Overview: 07/29/2012She has a history of intrapartum hemorrhage with her previous . Family history of defects 07/29/2012 05/06/2020 Overview: 07/29/2012. Pt's first cousin's child born with hydrocephalus and had a shunt placed. No mental retardation. Patient requested diagnostic testing 07/29/2012 08/29/2015 Overview: 07/29/2012Patient desires early screening in with sequential testing. 2012negative Sequential screen first trimester. The first part of the Sequential Screen reports that her risk for Down syndrome decreased from her age-related risk of 1:250 to 1:1,000 and her Trisomy 18 risk decreased from her age-related risk of 1:910 to 1:7,800. Based on these results Dr. Crowley's recommendation is for patient to follow-up with Sequential second trimester screening (10/15-10/29) and level II anatomy scan after 18wks. 10/27/2012negative Sequential screen second trimester. The second part of the Sequential Screen reports that her risk for Down syndrome decreased from her age-related risk of 1:350 to 1:10,000, her Trisomy 18 risk decreased from her age-related risk of 1:1,300 to 1:10,000 and the ONTD risk is 1:6,000. Based on these results Dr. Crowley's recommendation is for patient to follow-up with a level II anatomy ultrasound. Immunization due 07/29/2012 02/17/2013 Overview: Tetanus vaccine is not up-to-date Transient hypertension of pr egnancy, antepartum 01/31/2009 08/14/2010 Supervision of normal first 06/30/2008 08/14/2010 Female infertility of unspecified origin 05/06/2020 Overview: Female infertility documented as of this encounter (statuses as of 08/22/2023) [facility] Diagnosis Liver lesion Other specified disorders of [facility] Liver lesion- Primary Other specified disorders of liver Pancreatic cyst Cyst and pseudocyst of [facility] Diagnosis Encounter for gynecological examination without abnormal finding- Primary Routine gynecological examination Encounter for screening mammogram for breast cancer Encounter for screening mammogram for malignant neoplasm of breast Other screening mammogram [facility] Diagnosis Encounter for screening mammogram for malignant neoplasm of breast Other screening mammogram [facility] Diagnosis Acute cough- Primary URI, acute Acute upper respiratory infections of unspecified site [facility] Diagnosis Encounter for screening mammogram for malignant neoplasm of breast- Primary Other screening mammogram [facility] Diagnosis Encounter for screening mammogram for malignant neoplasm of breast Other screening mammogram [facility] Diagnosis Pancreatic cyst Cyst and pseudocyst of pancreas [facility] Diagnosis Encounter for gynecological examination (general) (routine) without abnormal findings- Primary Encounter for screening mammogram for breast cancer [facility] Acute [facility] Diagnosis Encounter for screening mammogram for breast cancer [facility] Diagnosis Viral URI with cough- Primary Acute upper respiratory infections of unspecified site [facility] Diagnosis Acute cough- Primary Rhinosinusitis Unspecified sinusitis (chronic) Acute cough documented in this encounter [facility] Diagnosis Acute cough [facility] Diagnosis Calcified liver mass, right lobe- Primary Unspecified disorder of liver Pancreatic mass Unspecified disease of pancreas Foot pain, right Pain in limb Neuroma of foot Other benign neoplasm of connective and other soft tissue of lower limb, including hip Screening for lipid disorders Skin exam for malignant neoplasm Screening for malignant neoplasm of the skin Family history of skin cancer Family history of other specified malignant neoplasm Encounter for immunization Need for other specified prophylactic vaccination against single bacterial disease [facility] Diagnosis Calcified liver mass, right lobe Unspecified disorder of liver Pancreatic mass Unspecified disease of pancreas documented in this encounter [facility] Diagnosis Anemia, unspecified type- Primary IPMN (intraductal papillary mucinous neoplasm) Neoplasm of unspecified nature of digestive system documented in this encounter [facility] Diagnosis Neuroma of foot Other benign neoplasm of connective and other soft tissue of lower limb, including hip Pancreatic cyst- Primary Cyst and pseudocyst of pancreas documented in this encounter [facility] Diagnosis Pain Generalized pain Pancreatic cyst- Primary Cyst and pseudocyst of pancreas documented in this encounter [facility] Diagnosis Pancreatic cyst- Primary Cyst and pseudocyst of pancreas documented in this encounter [facility] Diagnosis Right elbow pain- Primary Pain in joint, upper arm documented in this encounter [facility] Diagnosis Right elbow pain Pain in joint, upper arm documented in this encounter [facility] Diagnosis Right elbow pain- Primary Pain in joint, upper arm documented in this encounter [facility] Diagnosis Right elbow pain- Primary Pain in joint, upper arm documented in this encounter [facility] Diagnosis Right elbow pain- Primary Pain in joint, upper arm documented in this encounter [facility]* Diagnosis Lentigines- Primary Other dyschromia Angioma of skin Hemangioma of skin and subcutaneous tissue Multiple benign nevi Benign neoplasm of skin, site unspecified Seborrheic keratoses Other seborrheic keratosis documented in this encounter [facility] for referral (narrative)* Diagnostic Procedure Only (Routine) - Authorized Specialty Diagnoses / Procedures Referred By Felicia t Referred To Contact [facility] Diagnoses Encounter for screening mammogram for malignant neoplasm of breast Procedures PEDRO SCREENING W LAYLA SCREENING DIGITAL BREAST TOMOSYNTHESIS BI SCREENING MAMMOGRAPHY BI 2-VIEW BREAST INC CAD Allyson Valle APRN.RESIDENTIAL APPRAISER [address] [place] [address] [facility] [address] [place] [address] Referral ID Status Reason Start Date Expiration Date Visits Requested Visits Authorized [id number] Authorized Auto-Generat ed Referral 06/15/2022 07/15/2023 1 1 [facility] for referral (narrative)* Diagnostic Procedure Only (Routine) - Closed Specialty Diagnoses / Procedures Referred By Felicia cano Referred To Contact [facility] Diagnoses Encounter for screening mammogram for malignant neoplasm of breast Procedures PEDRO SCREENING W LAYLA SCREENING DIGITAL BREAST TOMOSYNTHESIS BI SCREENING MAMMOGRAPHY BI 2-VIEW BREAST INC CAD Allyson Valle APRN.RESIDENTIAL APPRAISER [address] [place] [address] [facility] [address] [place] [address] Referral ID Status Reason Start Date Expiration Date V isits Requested Visits Authorized [id number] Closed Auto-Generate d Referral 06/15/2022 07/15/2023 1 1 [facility] for referral (narrative)* Diagnostic Procedure Only (Routine) - Authorized Specialty Diagnoses / Procedures Referred By Felicia t Referred To Contact [facility] Diagnoses Encounter for screening mammogram for malignant neoplasm of breast Procedures PEDRO SCREENING W LAYLA SCREENING DIGITAL BREAST TOMOSYNTHESIS BI SCREENING MAMMOGRAPHY BI 2-VIEW BREAST INC CAD Magy Alvarado APRN.RESIDENTIAL APPRAISER [address] [place] [address] [facility] [address] [place] [address] Referral ID Status Reason Start Date Expiration Date Visits Requested Visits Authorized [id number] Authorized Auto-Generat ed Referral 05/14/2023 06/12/2024 1 1 T [facility] for referral (narrative)* Diagnostic Procedure Only (Routine) - New Request Specialty Diagnoses / Procedures Referred By Contac t Referred To Contact [facility] Diagnoses Encounter for screening mammogram for breast cancer Procedures PEDRO SCREENING W LAYLA SCREENING DIGITAL BREAST TOMOSYNTHESIS BI SCREENING MAMMOGRAPHY BI 2-VIEW BREAST INC [facility] Allyson Valle APRN.RESIDENTIAL APPRAISER [address] [place] [address] [facility] [address] [place] [address] Referral ID Status Reason Start Date Expiration Date Visits Requested Visits Authorized [id number] New Request Auto-Generat ed Referral 06/25/2024 07/25/2025 1 1 [facility] for visit Narrative* Diagnostic Procedure Only (Routine) - Closed Specialty Diagnoses / Procedures Referred By Felicia t Referred To Contact [facility] Diagnoses Encounter for screening mammogram for malignant neoplasm of breast Procedures PEDRO SCREENING W LAYLA SCREENING DIGITAL BREAST TOMOSYNTHESIS BI SCREENING MAMMOGRAPHY BI 2-VIEW BREAST INC CAD Allyson Valle APRN.RESIDENTIAL APPRAISER [address] [place] [address] [facility] [address] [place] [address] Referral ID Status Reason Start Date Expiration Date V isits Requested Visits Authorized [id number] Closed Auto-Generate d Referral 06/15/2022 07/15/2023 1 1 [facility] for visit Narrative* Diagnostic Procedure Only (Routine) - Authorized Specialty Diagnoses / Procedures Referred By Contac t Referred To Contact [facility] Diagnoses Encounter for screening mammogram for malignant neoplasm of breast Procedures PEDRO SCREENING W LAYLA SCREENING DIGITAL BREAST TOMOSYNTHESIS BI SCREENING MAMMOGRAPHY BI 2-VIEW BREAST INC CAD Magy Alvarado, TYING MACHINE OPERATOR.RESIDENTIAL APPRAISER [address] [place] [address] [facility] [address] [place] [address] Referral ID Status Reason Start Date Expiration Date Visits Requested Visits Authorized [id number] Authorized Auto-Generat ed Referral 05/14/2023 06/12/2024 1 1 [facility] for visit Narrative* Diagnostic Procedure Only (Routine) - Closed Specialty Diagnoses / Procedures Referred By Contac t Referred To Contact [facility] Diagnoses Encounter for screening mammogram for malignant neoplasm of breast Procedures PEDRO SCREENING W LAYLA SCREENING DIGITAL BREAST TOMOSYNTHESIS BI SCREENING MAMMOGRAPHY BI 2-VIEW BREAST INC CAD Magy Alvarado, TYING MACHINE OPERATOR.RESIDENTIAL APPRAISER [address] [place] [address] [facility] [address] [place] [address] Referral ID Status Reason Start Date Expiration Date V isits Requested Visits Authorized [id number] Closed Auto-Generate d Referral 05/14/2023 06/12/2024 1 1 [facility] for visit Narrative* Diagnostic Procedure Only (Routine) - Closed Specialty Diagnoses / Procedures Referred By Contbrando t Referred To Contact [facility] Diagnoses Encounter for screening mammogram for breast cancer Procedures PEDRO SCREENING W LAYLA SCREENING DIGITAL BREAST TOMOSYNTHESIS BI SCREENING MAMMOGRAPHY BI 2-VIEW BREAST INC CAD Allyson Valle, TYING MACHINE OPERATOR.RESIDENTIAL APPRAISER [address] [place] [address] Br Imaging [address] [place] [address] Referral ID Status Reason Start Date Expiration Date V isits Requested Visits Authorized [id number] Closed Auto-Generate d Referral 06/25/2024 07/25/2025 1 1 [facility] for visit Narrative* Diagnostic Procedure Only (Routine) - Closed Specialty Diagnoses / Procedures Referred By Contac t Referred To Contact XR IMAGING Diagnoses Pain Procedures XR FOOT GENERAL 3V AP/LAT/OBL LEFT RADEX FOOT COMPLETE MINIMUM 3 VIEWS Tai Moore [address] [address] [place] [address] Referral ID Status Reason Start Date Expiration Date V isits Requested Visits Authorized [id number] Closed Auto-Generate d Referral 09/22/2024 10/22/2025 1 1 [facility] Reason for Referral Specialty Diagnoses / Procedures Referred By Contac t Referred To Contact MR IMAGING Diagnoses Liver lesion Procedures MRI LIVER WO/W IVCON MRI ABDOMEN W/O & W/CONTRAST MATERIAL Gisella Godwin PA-C [address] [place] [address] Mr Imaging Referral ID Status Reason Start Date Expiration Date V isits Requested Visits Authorized [id number] Closed Auto-Generate d Referral 12/29/2021 10/06/2022 1 1 Specialty Diagnoses / Procedures Referred By Contac t Referred To Contact MR IMAGING Diagnoses Pancreatic cyst Procedures MRI PANC/BLAYNE WO/W IVCON MRI ABDOMEN W/O & W/CONTRAST MATERIAL Gisella Godwin PA-C [address] [place] [address] Mr Imaging Referral ID Status Reason Start Date Expiration Date Visits Requested Visits Authorized [id number] Pending Review Auto-Generat ed Referral 02/15/2023 1 1 Specialty Diagnoses / Procedures Referred By Contac t Referred To Contact MR IMAGING Diagnoses Pancreatic cyst Procedures MRI PANC/BLAYNE WO/W IVCON MRI ABDOMEN W/O & W/CONTRAST MATERIAL Gisella Godiwn PA-C [address] [place] [address] [place] [id number] Referral ID Status Reason Start Date Expiration Date V isits Requested Visits Authorized [id number] Closed Auto-Generate d Referral 08/07/2022 08/07/2022 1 1 Specialty Diagnoses / Procedures Referred By Contac t Referred To Contact Diagnoses Skin exam for malignant neoplasm Family history of skin cancer Procedures CONSULT TO DERMATOLOGY OFFICE/OUTPATIENT NEW HIGH MDM 60 MINUTES Lina Rainey, TYING MACHINE OPERATOR.RESIDENTIAL APPRAISER [address] [place] [address] Stained Glass Painter, Ramos Howard [address] [facility], [address] [place] [address] Referral ID Status Reason Start Date Expiration Date Visits Requested Visits Authorized [id number] Authorized PCP Requested Referral 4 09/22/2025 1 1 Specialty Diagnoses / Procedures Referred By Contac t Referred To Contact MR IMAGING Diagnoses Liver mass, right lobe Pancreatic mass Procedures MRI 3D POST PROCESSING 3D RENDERING W/INTERP&POSTPROC DIFF WORK STATION Lina Rainey APRN.RESIDENTIAL APPRAISER [address] [place] [address] Mr Imaging [facility]95 Referral ID Status Reason Start Date Expiration Date Visits Requested Visits Authorized [id number] Pending Review Auto-Generat ed Referral 4 10/22/2025 1 1 Specialty Diagnoses / Procedures Referred By Contac t Referred To Contact MR IMAGING Diagnoses Liver mass, right lobe Pancreatic mass Procedures MRI PANC/BLAYNE WO/W IVCON MRI ABDOMEN W/O & W/CONTRAST MATERIAL Lina Rainey APRN.RESIDENTIAL APPRAISER [address] [place] [id number] Mr Imaging [facility]95 Referral ID Status Reason Start Date Expiration Date V isits Requested Visits Authorized [id number] Open Auto-Generate d Referral 09/22/2024 10/22/2025 1 1 Specialty Diagnoses / Procedures Referred By Contac t Referred To Contact Podiatry / [facility] DEPARTMENT Diagnoses Foot pain, right Neuroma of foot Procedures CONSULT TO PODIATRY OFFICE/OUTPATIENT [facility] 60 MINUTES Lina Rainey APRN.RESIDENTIAL APPRAISER [address] [place] [address] Tai Moore [address] [place] [address] Referral ID Status Reason Start Date Expiration Date Visits Requested Visits Authorized [id number] Authorized PCP Requested Referral 4 09/22/2025 1 1 Specialty Diagnoses / Procedures Referred By Contac t Referred To Contact General Surgery Diagnoses IPMN (intraductal papillary mucinous neoplasm) Procedures CONSULT TO GENERAL SURGERY OFFICE/OUTPATIENT NEW HIGH MDM 60 MINUTES Lina Rainey, TYING MACHINE OPERATOR.RESIDENTIAL APPRAISER [address] [facility] [place] [address] Chapin Daugherty MD [address] [place] [address] Referral ID Status Reason Start Date Expiration Date Visits Requested Visits Authorized [id number] Authorized PCP Requested Referral 10/13/2024 10/13/2025 1 1 Specialty Diagnoses / Procedures Referred By Contac t Referred To Contact MR IMAGING Diagnoses Pancreatic cyst Procedures MRI PANC/BLAYNE WO/W IVCON MRI ABDOMEN W/O & W/CONTRAST MATERIAL Opal Smith MD [address] [place] [address] [place] [address] Referral ID Status Reason Start Date Expiration Date Visits Requested Visits Authorized [id number] New Request Auto-Generat ed Referral 11/03/2024 12/03/2025 1 1 Advance Directives No Advanced Directives Records FoundDocuments on File Type Date Recorded 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) 07/27/2021 8:53 AM Documents on File Type Date Recorded 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) 07/27/2021 8:53 AM Health Concerns Infection Onset Date Last Indicated Resolved Time COVID-19 Rule-Out 08/16/2022 08/16/2022 Summary Purpose Family History No Family History Records FoundNo Family History Records FoundNo Family History Records Found Additional Source Comments Source Comments (unrecognize d section and content) In the event this informatio n is protected by the Federal Confidentiality of Alcohol and Drug Abuse Patient Records regulations: The Federal rules restrict any use of the information to criminally investigate or prosecute any alcohol or drug abuse patient.[facility] the event this information is protected by the Federal Confidentiality of Alcohol and Drug Abuse Patient Records regulations: The Federal rules restrict any use of the information to criminally investigate or prosecute any alcohol or drug abuse patient.[facility] CenterIn the event this information is protected by the Federal Confidentiality of Alcohol and Drug Abuse Patient Records regulations: The Federal rules restrict any use of the information to criminally investigate or prosecute any alcohol or drug abuse patient.[facility] CenterIn the event this information is protected by the Federal Confidentiality of Alcohol and Drug Abuse Patient Records regulations: The Federal rules restrict any use of the information to criminally investigate or prosecute any alcohol or drug abuse patient.[facility] CenterIn the event this information is protected by the Federal Confidentiality of Alcohol and Drug Abuse Patient Records regulations: The Federal rules restrict any use of the information to criminally investigate or prosecute any alcohol or drug abuse patient.[facility] CenterIn the event this information is protected by the Federal Confidentiality of Alcohol and Drug Abuse Patient Records regulations: The Federal rules restrict any use of the information to criminally investigate or prosecute any alcohol or drug abuse patient.[facility] CenterIn the event this information is protected by the Federal Confidentiality of Alcohol and Drug Abuse Patient Records regulations: The Federal rules restrict any use of the information to criminally investigate or prosecute any alcohol or drug abuse patient.[facility] CenterIn the event this information is protected by the Federal Confidentiality of Alcohol and Drug Abuse Patient Records regulations: The Federal rules restrict any use of the information to criminally investigate or prosecute any alcohol or drug abuse patient.[facility] CenterIn the event this information is protected by the Federal Confidentiality of Alcohol and Drug Abuse Patient Records regulations: The Federal rules restrict any use of the information to criminally investigate or prosecute any alcohol or drug abuse patient.[facility] CenterIn the event this information is protected by the Federal Confidentiality of Alcohol and Drug Abuse Patient Records regulations: The Federal rules restrict any use of the information to criminally investigate or prosecute any alcohol or drug abuse patient.[facility] CenterIn the event this information is protected by the Federal Confidentiality of Alcohol and Drug Abuse Patient Records regulations: The Federal rules restrict any use of the information to criminally investigate or prosecute any alcohol or drug abuse patient.[facility] CenterIn the event this information is protected by the Federal Confidentiality of Alcohol and Drug Abuse Patient Records regulations: The Federal rules restrict any use of the information to criminally investigate or prosecute any alcohol or drug abuse patient.[facility] CenterIn the event this information is protected by the Federal Confidentiality of Alcohol and Drug Abuse Patient Records regulations: The Federal rules restrict any use of the information to criminally investigate or prosecute any alcohol or drug abuse patient.[facility] CenterIn the event this information is protected by the Federal Confidentiality of Alcohol and Drug Abuse Patient Records regulations: The Federal rules restrict any use of the information to criminally investigate or prosecute any alcohol or drug abuse patient.[facility] CenterIn the event this information is protected by the Federal Confidentiality of Alcohol and Drug Abuse Patient Records regulations: The Federal rules restrict any use of the information to criminally investigate or prosecute any alcohol or drug abuse patient.[facility] CenterIn the event this information is protected by the Federal Confidentiality of Alcohol and Drug Abuse Patient Records regulations: The Federal rules restrict any use of the information to criminally investigate or prosecute any alcohol or drug abuse patient.[facility] CenterIn the event this information is protected by the Federal Confidentiality of Alcohol and Drug Abuse Patient Records regulations: The Federal rules restrict any use of the information to criminally investigate or prosecute any alcohol or drug abuse patient.[facility] CenterIn the event this information is protected by the Federal Confidentiality of Alcohol and Drug Abuse Patient Records regulations: The Federal rules restrict any use of the information to criminally investigate or prosecute any alcohol or drug abuse patient.[facility] CenterIn the event this information is protected by the Federal Confidentiality of Alcohol and Drug Abuse Patient Records regulations: The Federal rules restrict any use of the information to criminally investigate or prosecute any alcohol or drug abuse patient.[facility] CenterIn the event this information is protected by the Federal Confidentiality of Alcohol and Drug Abuse Patient Records regulations: The Federal rules restrict any use of the information to criminally investigate or prosecute any alcohol or drug abuse patient.[facility] CenterIn the event this information is protected by the Federal Confidentiality of Alcohol and Drug Abuse Patient Records regulations: The Federal rules restrict any use of the information to criminally investigate or prosecute any alcohol or drug abuse patient.[facility] CenterIn the event this information is protected by the Federal Confidentiality of Alcohol and Drug Abuse Patient Records regulations: The Federal rules restrict any use of the information to criminally investigate or prosecute any alcohol or drug abuse patient.[facility] CenterIn the event this information is protected by the Federal Confidentiality of Alcohol and Drug Abuse Patient Records regulations: The Federal rules restrict any use of the information to criminally investigate or prosecute any alcohol or drug abuse patient.[facility] CenterIn the event this information is protected by the Federal Confidentiality of Alcohol and Drug Abuse Patient Records regulations: The Federal rules restrict any use of the information to criminally investigate or prosecute any alcohol or drug abuse patient.[facility] CenterIn the event this information is protected by the Federal Confidentiality of Alcohol and Drug Abuse Patient Records regulations: The Federal rules restrict any use of the information to criminally investigate or prosecute any alcohol or drug abuse patient.[facility] CenterIn the event this information is protected by the Federal Confidentiality of Alcohol and Drug Abuse Patient Records regulations: The Federal rules restrict any use of the information to criminally investigate or prosecute any alcohol or drug abuse patient.[facility] CenterIn the event this information is protected by the Federal Confidentiality of Alcohol and Drug Abuse Patient Records regulations: The Federal rules restrict any use of the information to criminally investigate or prosecute any alcohol or drug abuse patient.[facility] CenterIn the event this information is protected by the Federal Confidentiality of Alcohol and Drug Abuse Patient Records regulations: The Federal rules restrict any use of the information to criminally investigate or prosecute any alcohol or drug abuse patient.[facility] CenterIn the event this information is protected by the Federal Confidentiality of Alcohol and Drug Abuse Patient Records regulations: The Federal rules restrict any use of the information to criminally investigate or prosecute any alcohol or drug abuse patient.[facility] CenterIn the event this information is protected by the Federal Confidentiality of Alcohol and Drug Abuse Patient Records regulations: The Federal rules restrict any use of the information to criminally investigate or prosecute any alcohol or drug abuse patient.[facility] CenterIn the event this information is protected by the Federal Confidentiality of Alcohol and Drug Abuse Patient Records regulations: The Federal rules restrict any use of the information to criminally investigate or prosecute any alcohol or drug abuse patient.[facility] CenterIn the event this information is protected by the Federal Confidentiality of Alcohol and Drug Abuse Patient Records regulations: The Federal rules restrict any use of the information to criminally investigate or prosecute any alcohol or drug abuse patient.[facility] CenterIn the event this information is protected by the Federal Confidentiality of Alcohol and Drug Abuse Patient Records regulations: The Federal rules restrict any use of the information to criminally investigate or prosecute any alcohol or drug abuse patient.[facility] CenterIn the event this information is protected by the Federal Confidentiality of Alcohol and Drug Abuse Patient Records regulations: The Federal rules restrict any use of the information to criminally investigate or prosecute any alcohol or drug abuse patient.[facility] CenterIn the event this information is protected by the Federal Confidentiality of Alcohol and Drug Abuse Patient Records regulations: The Federal rules restrict any use of the information to criminally investigate or prosecute any alcohol or drug abuse patient.[facility] CenterIn the event this information is protected by the Federal Confidentiality of Alcohol and Drug Abuse Patient Records regulations: The Federal rules restrict any use of the information to criminally investigate or prosecute any alcohol or drug abuse patient.[facility] Reason for Visit (unrecogniz ed section and content) Reason Comments PT Discharge Specialty Diagnoses / Procedures Referred By Contac t Referred To Contact [facility] Diagnoses Right elbow pain Procedures CONSULT TO PHYSICAL THERAPY PHYSICAL THERAPY EVALUATION HIGH COMPLEX 45 MINS Lina Rainey, TYING MACHINE OPERATOR.RESIDENTIAL APPRAISER [address] [place] [address] Phone: tel: fax: [facility] [address] [place] [address] Referral ID Status Reason Start Date Expiration Date Visits Requested Visits Authorized [id number] Authorized Auto-Generat ed Referral 10/07/2024 10/06/2025 99 99 Reason Comments Physical Therapy Specialty Diagnoses / Procedures Referred By Contac t Referred To Contact MR IMAGING Diagnoses Liver lesion Procedures MRI LIVER WO/W IVCON MRI ABDOMEN W/O & W/CONTRAST MATERIAL Gisella Godwin PA-C [address] [facility] [place] [place] [address] Mr Imaging Referral ID Status Reason Start Date Expiration Date V isits Requested Visits Authorized [id number] Closed Auto-Generate d Referral 12/29/2021 10/06/2022 1 1 Reason Comments Results Reason Onset Date Comments Yearly Exam 06/15/2022 Specialty Diagnoses / Procedures Referred By Contac t Referred To Contact BR IMAGING Diagnoses Encounter for screening mammogram for breast cancer Procedures PEDRO SCREENING W LAYLA SCREENING BREAST DGTL LAYLA UNI/BILAT ADD ON SCREENING MAMMOGRAPHY BI 2-VIEW BREAST INC Allyson Blanco, TYING MACHINE OPERATOR.RESIDENTIAL APPRAISER [address] [place] [address] Br Imaging [address] [place] [address] Referral ID Status Reason Start Date Expiration Date V isits Requested Visits Authorized [id number] Closed Auto-Generate d Referral 05/16/2021 06/15/2022 1 1 Reason Comments Cough Chest congestion, in termittent SOB, fever x4 days. Specialty Diagnoses / Procedures Referred By Contac t Referred To Contact MR IMAGING Diagnoses Pancreatic cyst Procedures MRI PANC/BLAYNE WO/W IVCON MRI ABDOMEN W/O & W/CONTRAST MATERIAL Gisella Godwin PA-C [address] [facility] [place] [place] [address] Mr Imaging [facility]95 Referral ID Status Reason Start Date Expiration Date V isits Requested Visits Authorized [id number] Closed Auto-Generate d Referral 08/07/2022 08/07/2022 1 1 Reason Comments Well Woman Reason Comments Cough With congestion, AREVALO & fatigue x 2 days Reason Comments Cough dry, head congestion and sob seen 08/23 no better Reason Comments Establish Care Went to urgent care. While she was there . Needs follow up for pancrease scan. Had done in 2021 . Needs order. Pain (foot) Right foot pain. Got cortisone shots in it . Reason Comments Results Labs Specialty Diagnoses / Procedures Referred By Contac t Referred To Contact MR IMAGING Diagnoses Liver mass, right lobe Pancreatic mass Procedures MRI PANC/BLAYNE WO/W IVCON MRI ABDOMEN W/O & W/CONTRAST MATERIAL Lina Rainey, JEN.RESIDENTIAL APPRAISER [address] [place] [address] [place] [id number] Referral ID Status Reason Start Date Expiration Date V isits Requested Visits Authorized [id number] Closed Auto-Generate d Referral 09/28/2024 11/06/2024 1 1 Reason Comments Results MRI Pancreas Reason Comments Lab Orders Reason Comments Mass New Pain Specialty Diagnoses / Procedures Referred By Contac t Referred To Contact Podiatry / [facility] DEPARTMENT Diagnoses Foot pain, right Neuroma of foot Procedures CONSULT TO PODIATRY OFFICE/OUTPATIENT NEW HIGH MDM 60 MINUTES Lina Rainey, TYING MACHINE OPERATOR.RESIDENTIAL APPRAISER [address] [place] [address] Tai Moore [address] [place] [address] Referral ID Status Reason Start Date Expiration Date V isits Requested Visits Authorized [id number] Closed PCP Requested Referral 09/22/2024 09/22/2025 1 1 Reason Comments New Patient Pancreatic Cyst Reason Comments Pain (Elbow Pain) Right elbow pain sin ce October. Unknown cause. Reason Comments PT Eval Reason Comments Full Body Skin Check Specialty Diagnoses / Procedures Referred By Contac t Referred To Contact Diagnoses Skin exam for malignant neoplasm Family history of skin cancer Procedures CONSULT TO DERMATOLOGY OFFICE/OUTPATIENT [facility] 60 MINUTES Lina Rainey, TYING MACHINE OPERATOR.RESIDENTIAL APPRAISER [address] [place] [address] Phone: tel: fax: Stained Glass Painter, [facility] [address] [facility], [address] [place] [address] Phone: tel: fax: Referral ID Status Reason Start Date Expiration Date V isits Requested Visits Authorized [id number] Closed PCP Requested Referral 09/22/2024 09/22/2025 1 1 Care Teams (unrecognized sec tion and content) Monotype Machinist Relationship Specialty Start Date End Date Bola Ng MD PCP - General 11/01/08 Monotype Machinist Relationship Specialty Start Date End Date Bola Ng MD PCP - General 11/01/08 Monotype Machinist Relationship Specialty Start Date End Date Bola Ng MD PCP - General 11/01/08 Monotype Machinist Relationship Specialty Start Date End Date Bola Ng MD PCP - General 11/01/08 Monotype Machinist Relationship Specialty Start Date End Date Bola Ng MD PCP - General 11/01/08 Monotype Machinist Relationship Specialty Start Date End Date Bola Ng MD PCP - General 11/01/08 Monotype Machinist Relationship Specialty Start Date End Date Bola Ng MD PCP - General 11/01/08 Monotype Machinist Relationship Specialty Start Date End Date Bola Ng MD PCP - General 11/01/08 Monotype Machinist Relationship Specialty Start Date End Date Bola Ng MD PCP - General 11/01/08 Monotype Machinist Relationship Specialty Start Date End Date Bola Ng MD PCP - General 11/01/08 Monotype Machinist Relationship Specialty Start Date End Date Bola Ng MD PCP - General 11/01/08 Monotype Machinist Relationship Specialty Start Date End Date Bola Ng MD PCP - General 11/01/08 Monotype Machinist Relationship Specialty Start Date End Date Bola Ng MD PCP - General 11/01/08 Monotype Machinist Relationship Specialty Start Date End Date Bola Ng MD PCP - General 11/01/08 Monotype Machinist Relationship Specialty Start Date End Date Bola Ng MD PCP - General 11/01/08 Monotype Machinist Relationship Specialty Start Date End Date Lina Rainey, JEN.[facility] [address] [place] [id number] PCP - General Family Medicine 09/22/24 Monotype Machinist Relationship Specialty Start Date End Date Lina Rainey APRN.RESIDENTIAL APPRAISER [address] [place] [address] PCP - General Family Medicine 09/22/24 Monotype Machinist Relationship Specialty Start Date End Date Lina Rainey TYING MACHINE OPERATOR.RESIDENTIAL APPRAISER [address] [place] [address] PCP - General Family Medicine 09/22/24 Monotype Machinist Relationship Specialty Start Date End Date Lina Rainey TYING MACHINE OPERATOR.RESIDENTIAL APPRAISER [address] [place] [address] PCP - General Family Medicine 09/22/24 Monotype Machinist Relationship Specialty Start Date End Date Lina Rainey TYING MACHINE OPERATOR.RESIDENTIAL APPRAISER [address] [place] [address] PCP - General Family Medicine 09/22/24 Monotype Machinist Relationship Specialty Start Date End Date Lina Rainey TYING MACHINE OPERATOR.RESIDENTIAL APPRAISER [address] [place] [address] PCP - General Family Medicine 09/22/24 Monotype Machinist Relationship Specialty Start Date End Date Lina Rainey, TYING MACHINE OPERATOR.RESIDENTIAL APPRAISER [address] [place] [address] PCP - General Family Medicine 09/22/24 Monotype Machinist Relationship Specialty Start Date End Date Lina Rainey TYING MACHINE OPERATOR.RESIDENTIAL APPRAISER [address] [place] [address] PCP - General Family Medicine 09/22/24 Monotype Machinist Relationship Specialty Start Date End Date Lina Rainey APRN.RESIDENTIAL APPRAISER [address] [place] [address] PCP - General Family Medicine 09/22/24 [employer] Machinist Relationship Specialty Start Date End Date Lina Rainey TYING MACHINE OPERATOR.RESIDENTIAL APPRAISER [address] [place] [address] PCP - General Family Medicine 09/22/24 Monotype Machinist Relationship Specialty Start Date End Date Lina Rainey TYING MACHINE OPERATOR.RESIDENTIAL APPRAISER [address] [place] [address] PCP - General Family Medicine 09/22/24 Monotype Machinist Relationship Specialty Start Date End Date Lina Rainey APRN.RESIDENTIAL APPRAISER [address] [place] [address] PCP - General Family Medicine 09/22/24 Monotype Machinist Relationship Specialty Start Date End Date Lina Rainey, TYING MACHINE OPERATOR.RESIDENTIAL APPRAISER [address] [place] [address] PCP - General Family Medicine 09/22/24 INFORMATION SOURCE (unrecogn ized section and content) DATE CREATED AUTHOR 04/25/2024 [facility] DATE CREATED AUTHOR AUTHOR'S ORGANIZ ATION 12/08/2024 [facility] DATE CREATED AUTHOR AUTHOR'S ORGANIZ ATION 03/16/2025 [facility] FOR RECORDS PERTAINING TO PATIENTS WHO ARE OR HAVE BEEN ENROLLED IN A CHEMICAL DEPENDENCY/SUBSTANCEABUSE PROGRAM, SOME INFORMATION MAY BE OMITTED. This clinical summary was aggregated from multiple sources. Caution should be exercised in using it in the provision of clinical care. This summary normalizes information from multiple sources, and as a consequence, information in this document may materially change the coding, format and clinical context of patient data. In addition, data may be omitted in some cases. CLINICAL DECISIONS SHOULD BE BASED ON THE PRIMARY CLINICAL RECORDS. [facility]. provides no warranty or guarantee of the accuracy or completeness of information in this document.
--- NOTE | 2025-09-24 22:13 | EX.ED.DYSGE1 ---
HPI History of Present Illness Chief Complaint: General Illness Informant: patient and spouse/S.O. Narrative Narrative: Patient is a 44-year-old female with no significant medical history presenting with sudden onset palpitations, nausea, and diaphoresis while driving home from dinner. - Symptoms began shortly after leaving the parking lot, with a sudden onset of nausea, feeling very hot, and a racing pulse. - Heart rate reached 108 bpm, as measured by her watch, and remained elevated for approximately 30 minutes. - Denies any previous similar episodes. - Reports feeling more stable now but still not quite right. - Denies use of stimulants other than caffeine, about 2 cups of coffee per day; denies cocaine use. - Has been under significant work-related stress; noted elevated blood pressure at a recent dental visit; can remember how high it was, but less than 160. - Denies any history of surgeries. - LMP was about 30 days ago; notes variability in menstrual cycles. PFSH PFSH Medical History no medical history no medical history Home Medications ?Medication ?Instructions ?Recorded ?Last Taken ?Type NK 09/24/25 Unknown History Allergy/AdvReac Type Severity Reaction Status Date / Time No Known Allergies Allergy Verified 09/24/25 21:06 Social History Smoking Status: Never smoker ROS ROS ED Constitutional Constitutional ED: Reports sweats; Denies chills or fever(s) Eyes Eyes: Denies change in vision or diplopia ENT ENT ED: Denies rhinorrhea or sore throat Cardiovascular Cardiovascular: Reports lightheadedness, palpitations and racing heartbeat; Denies chest pain, pedal edema or syncope Respiratory/Chest Respiratory/Chest: Denies cough or dyspnea Gastrointestinal Gastrointestinal: Reports nausea; Denies abdominal pain, diarrhea or vomiting Genitourinary Genitourinary ED: Denies dysuria or hematuria Musculoskeletal Musculoskeletal: Denies back pain or neck pain Integumentary Denies abscess or rash Neurologic Neurologic: Denies headache(s), paresthesias or weakness Psychiatric Psychiatric: Denies suicidal thoughts EXAM Physical Exam Const Vital Signs: 09/24/25 21:04 09/24/25 21:54 09/24/25 22:05 Temperature 97.8 F Temperature Source Oral Pulse Rate 82 90 Respiratory Rate 16 12 Respiratory Effort Normal Respiratory Pattern Normal Blood Pressure 164/96 H 163/88 H Blood Pressure Mean 118 113 Pulse Ox 99 95 Oxygen Delivery Method Room Air Room Air 09/24/25 22:29 09/24/25 22:30 09/24/25 22:32 Temperature Temperature Source Pulse Rate 67 Respiratory Rate 15 Respiratory Effort Respiratory Pattern Blood Pressure 149/98 H Blood Pressure Mean 112 Pulse Ox 100 Oxygen Delivery Method Room Air 09/24/25 22:45 09/24/25 23:00 09/24/25 23:15 Temperature Temperature Source Pulse Rate 74 83 91 Respiratory Rate 11 L 13 13 Respiratory Effort Respiratory Pattern Blood Pressure 130/84 H 140/90 H 144/95 H Blood Pressure Mean 99 103 110 Pulse Ox 100 99 99 Oxygen Delivery Method Room Air Room Air 09/24/25 23:30 09/24/25 23:59 09/25/25 00:00 Temperature Temperature Source Pulse Rate 88 83 Respiratory Rate 14 15 Respiratory Effort Respiratory Pattern Blood Pressure 143/85 H 142/104 H Blood Pressure Mean 102 117 Pulse Ox 99 99 98 Oxygen Delivery Method Room Air Positive well nourished and well developed General Appearance ED: well developed and NAD HEENT Reports moist mucous membranes normocephalic and atraumatic Eyes PERRL and EOMs intact bilaterally Neck full ROM and supple Resp normal respiratory effort and clear to auscultation bilaterally Cardio regular rate, regular rhythm and no murmurs Rate: Negative for tachycardic GI non-tender and non-distended Auscultation: normoactive bowel sounds Palpation: soft Back/Spine no CVA tenderness General Back: other FROM Extremity normal to inspection General Extremety ED: Negative for edema, pulses abnormal or tenderness General Extremity: Negative for edema or pulses abnormal Neuro oriented x3, CN's II-XII intact bilaterally and no sensory deficits noted Sensorium / Orientation: awake and alert Motor Exam: strength 5/5 throughout Skin no rashes or lesions noted and no wounds MDM MDM MDM Narrative Medical decision making narrative: Assessment: The patient is a 44-year-old female presenting for sudden onset palpitations and perceived tachycardia while seated in a car; symptoms resolved prior to ED evaluation. She denies prior similar episodes, medical problems, or stimulant use. In the ED she remained hemodynamically stable without recurrent tachyarrhythmia. Differential discussed includes ectopy, supraventricular tachydysrhythmia, and atrial fibrillation, though AFib and ventricular dysrhythmia are felt to be highly unlikely given her age, normal EKG, and absence of known structural heart disease. Sequential troponins are negative and EKG is normal, effectively ruling out acute coronary syndrome. Chest X-ray is unremarkable aside from a known benign hepatic calcification. Current elevated blood pressure is likely situational and not deemed causative of her symptoms. She is safe for discharge with outpatient follow-up. Plan: - Continuous cardiac monitoring in ED; no dysrhythmia captured during observation - Patient reassured regarding benign work-up and low risk for malignant arrhythmia - Discharged home in stable condition - Advised strict return precautions for recurrent palpitations, syncope, chest pain, or worsening blood pressure - Recommended outpatient primary care follow-up for serial blood pressure assessment Diagnostics: - EKG: normal sinus rhythm, no ST-T abnormalities, no ectopy. Independently interpreted by meSly. - Chest X-ray, 2 views: unremarkable cardiopulmonary findings; incidental hepatic calcification noted by radiology. - Sequential troponins: both negative. - Routine labs: all results within normal limits. Reevaluations: - Blood pressure trended down to 140 systolic; remained asymptomatic without tachycardia throughout ED stay Portions of this note were generated using voice recognition software ([employer]). I have reviewed the contents and every effort has been made to ensure accuracy; however, inadvertent errors in grammar, spelling, punctuation, or word choice may occur, that were not noted before signing the document and should not alter the intended clinical meaning. Lab Data Attestation: I reviewed the patient's lab results. Labs: Laboratory Results - last 24 hr 09/24/25 09/25/25 22:29 00:31 WBC 8.2 RBC 4.73 Hgb 14.9 Hct 43.7 MCV 92.4 MCH 31.5 MCHC 34.1 RDW Std Deviation 44.6 H RDW Coeff of Won 13.2 Plt Count 234 MPV 9.9 Immature Gran % (Auto) 0.100 Neut % (Auto) 62.3 Lymph % (Auto) 28.8 [place] % (Auto) 7.1 Eos % (Auto) 0.7 Baso % (Auto) 1.0 Absolute Neuts (auto) 5.1 Absolute Lymphs (auto) 2.35 Nucleated RBC % 0 Sodium 137 Potassium 3.4 Chloride 102 Carbon Dioxide 24.2 Anion Gap 12 BUN 12 Creatinine 0.97 Estim Creat Clear Calc 74.75 Est GFR (MDRD) Non-Af 73 BUN/Creatinine Ratio 12.0 Glucose 152 H Calcium 9.4 Troponin T High Sens < 6 Troponin T Hi Sens 2 Hr 6 Radiography Diagnostic Testing: Clinical Impression(s) from Imaging Studies Chest X-Ray 09/24/25 22:38 IMPRESSION: No acute cardiopulmonary disease. Incidental large calcific density in the upper right abdomen most likely reflecting a nonspecific calcified lesion within the liver. Reading Location: [facility] Rhythm Strip Rhythm Strip: Sinus Rhythm Rate: 80 Ectopy: None EKG Initial EKG: Attestation: I personally reviewed and interpreted this EKG as follows: Interpretation: No Acute Injury Pattern and Sinus Arrythmia (68) Comments: Nml axis & intervals; nml EKG. no delta wave Discharge Plan Triage Chief Complaint: General Illness ED Provider: Sly Harman Dx/Rx/DC Orders Clinical Impression: Rapid palpitations, Elevated BP reading w/ no diagnosis of HTN Instructions: ED Heart Palpitations Prescriptions: No Action NK Primary Care Provider: Dasia Shelton NP Referrals: Dasia Shelton NP, [employer]ICAL PRODUCTION WORKER-[employer] [Primary Care Provider, Medical] - As soon as possible Activity Restrictions/Additional Instructions: - Watch for any return of fast or irregular heartbeats, chest pain, dizziness, or other concerning symptoms, and return to the emergency department right away if they occur so we can monitor your rhythm. - Follow up with your primary care doctor to have your blood pressure checked under controlled conditions when you?re feeling well. Print Language: Ethiopian Disposition Disposition: Home, Self Care
[2025-09-24 22:34] LABS: Hematocrit 43.7 % (37-47); Hemoglobin 14.9 g/dL (12.0-15.0); Immature Granulocytes Count 0.010 X10^3/uL (0.0-0.0); Mean Corp Hgb Conc 34.1 g/dL (32-36); Mean Corpuscular Volume 92.4 fL (81-99); Mean Platelet Vol. 9.9 fl (6.2-12.0); NRBC Flagged by Analyzer 0 % (0-5); Platelet Count 234 K/mm3 (150-450); RBC Distribution Width CV 13.2 % (11.6-14.6); RBC Distribution Width SD 44.6 fl (35.1-43.9); Red Blood Count 4.73 M/mm3 (4.2-5.4); White Blood Count 8.2 K/mm3 (4.4-11.0)
--- NOTE | 2025-09-24 22:38 | RAD_ITS ---
PROCEDURE: CHEST PA AND LATERAL 09/24/2025 REASON FOR EXAM: PALPITATIONS, NAUSEA TECHNIQUE: Procedure Code: RADCXR Modality: DX Procedure: CHEST PA AND LATERAL COMPARISON: None available. FINDINGS: Lungs/Pleura: Clear. Heart/Mediastinum: Normal in size. No vascular congestion. Bones/Soft tissues: Unremarkable osseous structures. Large large calcific density in the right upper abdomen measuring roughly 6.9 x 5.1 cm likely within the liver, nonspecific. RAD/Chest PA and Lateral IMPRESSION: No acute cardiopulmonary disease. Incidental large calcific density in the uppe r right abdomen most likely reflecting a nonspecific calcified lesion within the liver. Reading Location: [id number]
[2025-09-24 23:02] LABS: Anion Gap 12 (5-15); BUN 12 mg/dL (4-19); BUN/Creat Ratio 12.0 RATIO (10-20); Calcium,Total 9.4 mg/dL (7.6-11.0); Carbon Dioxide 24.2 mmol/L (21.0-32.0); Chloride 102 mmol/L (98-108); Estimated Creatinine Clearance 74.75 ml/min (50-250); Glucose 152 mg/dL (70-99); Potassium 3.4 mmol/L (3.3-5.1); Troponin T High Sensitivity < 6 ng/L (<=14)
[2025-09-25] VITALS: BP 142/104; PULSE 83; RESP 15; O2SAT 98
[2025-09-25 01:01] LABS: Troponin T High Sens 2 HR 6 ng/L (<=14)
[2025-09-25 01:13] VITALS: BP 142/92; PULSE 90; RESP 20; TEMP 36.6; O2SAT 100
== END 2025-09-25 01:19 | disposition home or self-care (01) ==
PROVIDERS: Emergency Provider Emergency Medicine; PCP Nurse Practitioner Family; Visit Provider Emergency Medicine
DX: R00.2 Palpitations (principal); R03.0 Elevated blood-pressure reading, without diagnosis of hypertension
CPT/HCPCS: 71046; 80048; 84484; 85025; 93005; 99284; A4216